=== PATIENT | female | born 1970 | race Caucasian/White ===

== ENCOUNTER 2018-10-14 23:43 | Emergency (ER) | payer OTHER, MEDICAID ==
[2018-10-15] MEDS ORDERED: Ketorolac Tromethamine 60 MG/2 ML VIAL ONE (00:34)
== END 2018-10-15 00:39 | disposition home or self-care (01) ==
LOC: ERS 23:43
DX: M54.6 Pain in thoracic spine (principal); F41.9 Anxiety disorder, unspecified; F31.9 Bipolar disorder, unspecified; F17.210 Nicotine dependence, cigarettes, uncomplicated
CPT/HCPCS: 96372; J1885

== ENCOUNTER 2018-10-30 12:49 | Emergency (ER) | payer OTHER, MEDICAID ==
[2018-10-30] MEDS ORDERED: Ketorolac Tromethamine 30 MG/ML VIAL ONE (15:15)
[2018-10-30] MEDS ORDERED: Cyclobenzaprine 10 MG TAB ONE (15:15)
== END 2018-10-30 15:28 | disposition home or self-care (01) ==
LOC: ERS 12:49
DX: M54.5 Low back pain (principal); F41.9 Anxiety disorder, unspecified; F31.9 Bipolar disorder, unspecified; F17.210 Nicotine dependence, cigarettes, uncomplicated; W19.XXXA Unspecified fall, initial encounter
CPT/HCPCS: 96372; J1885

== ENCOUNTER 2018-12-04 13:34 | Outpatient (CLI) | payer OTHER, MEDICAID ==
--- NOTE | 2018-12-28 09:04 | MMO ---
Bilateral MAMMO Bilat Screen [facility]. CLINICAL HISTORY: Patient is 48 years old and is seen for screening. The patient has no family history of breast cancer. The patient has no personal history of cancer. VIEWS: The views performed were: bilateral craniocaudal with tomosynthesis and bilateral mediolateral oblique with tomosynthesis. MAMMOGRAM FINDINGS: There are scattered fibroglandular densities. Finding 1: There are masses with circumscribed margins seen in both breasts. Finding 2: There are amorphous or indistinct calcifications with grouped or clustered distribution seen in the anterior sub-areolar region of the left breast. IMPRESSION: FINDING 1: MASSES IN BOTH BREASTS ARE BENIGN. FINDING 2: CALCIFICATIONS IN THE LEFT BREAST REQUIRE ADDITIONAL EVALUATION. ADDITIONAL PROJECTIONS (LEFT CRANIOCAUDAL MAGNIFICATION; LEFT MEDIOLATERAL OBLIQUE MAGNIFICATION; AND LEFT MEDIOLATERAL MAGNIFICATION) ARE RECOMMENDED. THE RESULTS OF THIS EXAM WERE SENT TO THE PATIENT. ACR BI-RADS Category 0 - Incomplete: Need additional imaging evaluation. [facility] will notify the patient of the need for additional imaging services. MAMMOGRAPHY NOTE: 1. A negative mammogram report should not delay a biopsy if a dominant of clinically suspicious mass is present. 2. Approximately 10% to 15% of breast cancers are not detected by mammography. 3. Adenosis and dense breasts may obscure an underlying neoplasm.
== END 2018-12-04 13:35 | disposition home or self-care (01) ==
LOC: BICMAMMO 13:34
PROVIDERS: ATTEND Student in an Organized Health Care Education/Training Program
DX: Z12.31 Encounter for screening mammogram for malignant neoplasm of breast (principal); N63.10 Unspecified lump in the right breast, unspecified quadrant; N63.20 Unspecified lump in the left breast, unspecified quadrant; R92.1 Mammographic calcification found on diagnostic imaging of breast
CPT/HCPCS: 77063; 77067

== ENCOUNTER 2019-01-01 13:04 | Outpatient (CLI) | payer OTHER, MEDICAID ==
--- NOTE | 2019-01-01 14:05 | MMO ---
Left Breast MAMMO Unilat Diag [facility]DI LT+[facility]BORAH. CLINICAL HISTORY: Patient is 48 years old and is seen for diagnostic exam. The patient has no family history of breast cancer. The patient has no personal history of cancer. VIEWS: The views performed were: left craniocaudal magnification; left mediolateral magnification; and left mediolateral with tomosynthesis. FILMS COMPARED: The present examination has been compared to a prior imaging study performed at [facility] on 12/04/2018. MAMMOGRAM FINDINGS: There are calcifications with grouped or clustered distribution seen in the sub-areolar region of the left breast. IMPRESSION: CALCIFICATIONS IN THE LEFT BREAST ARE SUSPICIOUS. A STEREOTACTIC BREAST BIOPSY IS RECOMMENDED. FINDINGS DISCUSSED WITH DR. HILTON ON 01/01/19 AT 13:58 HOURS. THE RESULTS OF THIS EXAM WERE SENT TO THE PATIENT. ACR BI-RADS Category 4 - Suspicious abnormality - biopsy should be considered MAMMOGRAPHY NOTE: 1. A negative mammogram report should not delay a biopsy if a dominant of clinically suspicious mass is present. 2. Approximately 10% to 15% of breast cancers are not detected by mammography. 3. Adenosis and dense breasts may obscure an underlying neoplasm.
== END 2019-01-01 13:05 | disposition home or self-care (01) ==
LOC: BICMAMMO 13:04
PROVIDERS: ATTEND Student in an Organized Health Care Education/Training Program
DX: R92.1 Mammographic calcification found on diagnostic imaging of breast (principal)
CPT/HCPCS: G0279

== ENCOUNTER 2019-01-04 08:27 | Emergency (ER) | payer MEDICARE, MEDICAID ==
--- NOTE | 2019-01-04 09:06 | RAD ---
XR Hand Rt 3 View STANDARD HISTORY: Fall with right hand injury. COMPARISON: None. FINDINGS: There is an old fifth metacarpal fracture present. There are arthritic changes of the radio carpal joint space. There is deformity to the distal radius also compatible with old injury. No acute fractures are seen. IMPRESSION: No acute injury
[2019-01-04] MEDS ORDERED: HYDROcodone/Acetaminophen 5/325 mg Tablet ONE (09:23)
== END 2019-01-04 09:27 | disposition home or self-care (01) ==
LOC: ERS 08:27
DX: S60.511A Abrasion of right hand, initial encounter (principal); F41.9 Anxiety disorder, unspecified; F31.9 Bipolar disorder, unspecified; F17.210 Nicotine dependence, cigarettes, uncomplicated; W19.XXXA Unspecified fall, initial encounter

== ENCOUNTER → 2019-01-04 | Day surgery (SDC) | payer MEDICARE, MEDICAID ==
--- NOTE | 2019-01-04 08:36 | MMO ---
Stereotactic left breast biopsy Biopsy marking clip placement of left breast INDICATION: Left breast calcifications PROCEDURE: Informed consent was obtained and the patient was escorted to the procedural suite, placed in a prone position. Left breast was placed into compression. Calcifications of interest were localized utilizing stereota ctic imaging. Standard sterile prepping and draping and topical anesthesia with buffered 1% lidocaine was achieved, followed by a small skin incision. A 10-gauge vacuum-assisted stereotactic needle was then advanced to the leading edge of the calcifica tions, confirmed with mammographic imaging. Needle was then deployed. 6 core specimens were then acquired from the site of interest. The specimens were radiographed which did reveal calcifications of interest. Needle was removed. A biopsy marking clip was then advanced to the site of biopsy and a marking clip was deployed. There were no procedural complications. Patient tolerated the procedure well. Patient was transferred to mammography to undergo postprocedural clip placement views. IMPRESSION: Technically successful stereotactic biopsy of left breast, yielding calcifications of int erest. Pathology results are pending. The patient will be notified of the results when they are received.
--- NOTE | 2019-01-04 15:18 | MMO ---
SURGICAL SPECIMEN RADIOGRAPH: Date: 01/04/19 INDICATION: Status post stereotactic biopsy for left breast calcifications. FINDINGS: Radiographed specimens do reveal calcifications of interest. IMPRESSION: Calcifications of interest are present within the radiographed specimens. POS: MEKA
--- NOTE | 2019-01-04 15:22 | MMO ---
POSTPROCEDURAL DIAGNOSTIC LEFT MAMMOGRAM: INDICATION: Status post stereotactic biopsy of left breast and clip placement for calcifications of the anterior, central left breast. FINDINGS: Postprocedural mammographic views reveal interval reduction in number of calcifications of interest w ith deployment of clip. IMPRESSION: Status post stereotactic biopsy and clip deployment with interval reduced number of calcifications of interest at the anterior center of the left breast. POS: LONNIE
== END ==
LOC: MAMMO 06:43
PROVIDERS: ATTEND Student in an Organized Health Care Education/Training Program
DX: N60.12 Diffuse cystic mastopathy of left breast (principal); R92.8 Other abnormal and inconclusive findings on diagnostic imaging of breast
CPT/HCPCS: 19081; 76098; 88305

== ENCOUNTER 2019-01-22 17:34 | Emergency (ER) | payer MEDICARE, MEDICAID ==
[~2019-01-22 17:34] MED LIST: ISOVUE-370 76%-LOCM 1 ML ONE
[2019-01-22 18:06] LABS: #Basophils 0.1 thou/uL (0.0-0.2); #Eosinphils 0.1 thou/uL (0.0-0.7); #Monocytes 0.7 thou/uL (0.11-0.59); #Neutrophils 6.8 thou/uL (1.40-6.50); %Basophils 0.8 % (0.0-1.0); %Eosinophils 0.7 % (0.0-10.0); %Lymphocytes 21.1 % (21.0-51.0); %Monocytes 6.8 % (0.0-10.0); %Neutrophils 70.6 % (42.0-75.0); Hemoglobin 12.6 g/dL (12.0-16.0); Mean Corpuscular HGB CONC 33.5 g/dL (32.0-36.0); Mean Corpuscular Hemoglobin 34.2 pg (27.0-31.0); Mean Platelet Volume 7.1 fL (7.4-10.4); Platelet Count 278 thou/uL (130-400); RBC Distribution Width 14.6 % (11.5-14.5); Red Blood Cell (RBC) Count 3.68 mill/uL (4.20-5.40); White Blood Cell (WBC) Count 9.6 thou/uL (4.8-10.8)
[2019-01-22 18:31] LABS: ALT (SGPT) 43 U/L (8-55); AST (SGOT) 55 U/L (5-34); Albumin 3.8 g/dL (3.5-5.0); Alkaline Phosphatase 104 U/L (40-150); Anion Gap 15 mmol/L (10-20); BUN (Urea Nitrogen) 7 mg/dL (7.0-18.7); Bilirubin, Total 0.6 mg/dL (0.2-1.2); Calc. Creatinine Clearance 0 mL/min (70-130); Calcium 8.9 mg/dL (7.8-10.44); Carbon Dioxide 24 mmol/L (22-29); Chloride 103 mmol/L (98-107); Estimated GFR-MDRD 77; Globulin 2.8 g/dL (2.4-3.5); Glucose 125 mg/dL (70-105); Lipase 127 U/L (8-78); Potassium 4.2 mmol/L (3.5-5.1); Protein, Total 6.6 g/dL (6.0-8.3); Sodium 138 mmol/L (136-145)
[2019-01-22 21:17] LABS: Bilirubin Negative (Negative); Blood, Urine Negative (Negative); Clarity CLEAR (Clear); Glucose, Urine (Dipstick) Negative (Negative); Leukocyte Negative (Negative); Nitrite Negative (Negative); Protein, Urine (Dipstick) Negative (Neg-Trace); Urobilinogen 0.2 mg/dL (0.2-1.0)
--- NOTE | 2019-01-22 21:52 | CT ---
CT ABDOMEN AND PELVIS WITH IV CONTRAST: History: Abdominal pain, hemoptysis. FINDINGS: Lung bases are clear. Within the posterior dome of the right liver lobe, a very ill-defined subtle lo w density mass is 1.0 cm greatest diameter. No other liver masses are reliably demonstrated. Spleen, kidneys, adrenal glands, and pancreas are unremarkable. No enlarged lymph nodes or free fluid. No abd ominal varices are evident. Urinary bladder is incompletely distended. Ligation clips are present at each adnexa. Right hip prosthesis partially visualized. IMPRESSION: 1. Subtle ill-defined low density mass within the posterior dome of the right liver lobe. Please cons ider short term follow up with MRI of the liver or dedicated CT liver exam with and without IV contra st. Also consider gastroenterologic evaluation on an outpatient basis. 2. No cause for hematemesis or acute abdominal pain is reliably demonstrated. POS: BST
== END 2019-01-22 23:26 | disposition home or self-care (01) ==
LOC: ERS 17:34
DX: R10.9 Unspecified abdominal pain (principal); F41.9 Anxiety disorder, unspecified; F31.9 Bipolar disorder, unspecified; F17.210 Nicotine dependence, cigarettes, uncomplicated; Z79.899 Other long term (current) drug therapy
CPT/HCPCS: 36415; 74177; 80053; 81003; 83690; 85025; 86850; 86900; 86901; Q9966

== ENCOUNTER 2019-01-23 09:49 | Inpatient (IN) | payer MEDICARE, MEDICAID ==
[2019-01-23] MEDS ORDERED: Ondansetron PF 4 MG/2 ML Vial ONE (10:12)
[2019-01-23] MEDS ORDERED: Morphine 4 MG/ML VIAL ONE ×4 (10:12→17:09)
[2019-01-23 10:19] LABS: Hemoglobin 12.6 g/dL (12.0-16.0); Mean Corpuscular HGB CONC 32.9 g/dL (32.0-36.0); Mean Corpuscular Hemoglobin 33.8 pg (27.0-31.0); Mean Platelet Volume 7.2 fL (7.4-10.4); Platelet Count 283 thou/uL (130-400); RBC Distribution Width 14.9 % (11.5-14.5); Red Blood Cell (RBC) Count 3.72 mill/uL (4.20-5.40); White Blood Cell (WBC) Count 7.6 thou/uL (4.8-10.8)
[2019-01-23 10:41] LABS: ALT (SGPT) 39 U/L (8-55); AST (SGOT) 48 U/L (5-34); Albumin 3.8 g/dL (3.5-5.0); Alkaline Phosphatase 103 U/L (40-150); Anion Gap 16 mmol/L (10-20); BUN (Urea Nitrogen) 5 mg/dL (7.0-18.7); Calc. Creatinine Clearance 0 mL/min (70-130); Calcium 9.2 mg/dL (7.8-10.44); Carbon Dioxide 23 mmol/L (22-29); Chloride 103 mmol/L (98-107); Estimated GFR-MDRD 83; Globulin 2.8 g/dL (2.4-3.5); Glucose 114 mg/dL (70-105); Lipase 320 U/L (8-78); Potassium 3.6 mmol/L (3.5-5.1); Protein, Total 6.6 g/dL (6.0-8.3); Sodium 138 mmol/L (136-145)
[2019-01-23 10:44] LABS: Band 3 % (5-11); Eosinophils 2 % (0-10); Lymphocytes 47 % (21-51); MDiff Complete? YES; Macrocytosis SLIGHT = 6-15 cells (100X) (0-5/hpf); Monocytes 5 % (0-10); Neutrophil 40 % (42-75); Platelet Morphology Comment Appears Adequate; Polychromasia SLIGHT = 2-3 cells (100X) (0-2/hpf); Reactive Lymphocytes 3 % (0-10)
--- NOTE | 2019-01-23 11:46 | ULT ---
Sonogram right upper quadrant HISTORY: Abdominal pain. FINDINGS: Gallbladder has a normal appearance without evidence of stones. Common duct is prominent at 1 cm. It was not significantly distended on CT exam from 01/22/2019. Small hyperechoic lesion within the posterior segment right liver lobe has the appearance of a small hemangioma. It is in the area of concern on recent CT exam. No free fluid within the abdomen. IMPRESSION: Common duct distention (up to 1.1 cm) on today's exam, although it was not significantly dilated on the recent CT. If symptoms are referable to acute central biliary obstruction, radionucleotide hepatobiliary scan could be used to evaluate for biliary patency. No other significant abnormalities are demonstrated. The small low-density lesion on recent CT exam within the posterior dome of the right liver lobe like ly represents the hemangioma on today's sonogram.
--- NOTE | 2019-01-23 14:11 | PDOC.FPRHP ---
- History of Present Illness Chief Complaint: Abdominal pain History of Present Illness: 48 yo F with PMH bipolar, PTSD presents for abdominal pain. Reports 1 month intermittent nausea. Says it has improved with zofran. Has vomited intermittently as well. No hematemesis. Last PO intake last night when she drank a gatorade. Decreased appetite today. Reports abdominal pain, worse in epigastric area. Has had 4-5 episodes of pancreatitis in past and says this is the same. Last episode a few years ago. Denies fever/chills. Also notes bright red blood per rectum for a few days patient attributes to hemorrhoids. Has strained out diarrhea the past two days with blood. No bleeding when not having BM. No dark stool. Last alcohol drink yesterday. Has been years since gone without alcohol. PCP: [facility] Course: morphine 16mg, 2L, zofran - History PMHx: Bipolar, PTSD PSHx: R hip, L & R mandible, lumbar injections FHx: patient does not know Social: Currently drinking 6 pack per day, trying to cut back. Has withdrawn in past. Tobacco use 4 cigs/day since 15 years old. Marijuana use. Lives with spouse, Kale. - Review of Systems General: reports: weight/appetite/sleep changes. denies: fever/chills Eyes: denies: vision changes ENT: denies: nasal congestion Respiratory: denies: cough, congestion, shortness of breath Cardiovascular: denies: chest pain, palpitation Gastrointestinal: reports: nausea, vomiting, diarrhea, abdominal pain, GI bleeding Genitourinary: denies: dysuria Skin: denies: rashes Musculoskeletal: denies: pain, swelling Neurological: denies: syncope, weakness Psychological: reports: anxiety, depression - Vital signs BP: 104/60 HR: 102 RR: 18 Tmax: 97.9 Pox: 97% on RA Wt: 64 kg - Physical Exam Constitutional: awake, alert and oriented HEENT: normocephalic and atraumatic, PERRLA, grossly normal vision, grossly normal hearing, oropharynx clear, other (mucus membranes dry) Heart: RRR, normal S1/S2, no murmurs/rubs/gallops, no edema Lungs: CTAB, no respiratory distress, no wheezing Abdomen: soft, bowel sounds present, other (epigastric very TTP. No TTP in lower abdominal quadrants) Musculoskeletal: normal structure, normal tone Neurological: no focal deficit Skin: no rash/lesions Heme/Lymphatic: no unusual bruising or bleeding FMR H&P: Results - Labs Result Diagrams: 01/24/19 05:49 01/24/19 05:49 Lab results: WBC 7.6 thou/uL (4.8-10.8) 01/23/19 09:58 Hgb 12.6 g/dL (12.0-16.0) 01/23/19 09:58 Hct 38.3 % (36.0-47.0) 01/23/19 09:58 MCV 103.0 fL (78.0-98.0) H 01/23/19 09:58 Plt Count 283 thou/uL (130-400) 01/23/19 09:58 Band Neuts % (Manual) 3 % (5-11) L 01/23/19 09:58 Sodium 138 mmol/L (136-145) 01/23/19 09:58 Potassium 3.6 mmol/L (3.5-5.1) 01/23/19 09:58 Chloride 103 mmol/L (98-107) 01/23/19 09:58 Carbon Dioxide 23 mmol/L (22-29) 01/23/19 09:58 BUN 5 mg/dL (7.0-18.7) L 01/23/19 09:58 Creatinine 0.75 mg/dL (0.6-1.1) 01/23/19 09:58 Glucose 114 mg/dL (70-105) H 01/23/19 09:58 Lactic Acid 2.3 mmol/L (0.5-2.2) H 01/23/19 10:13 Calcium 9.2 mg/dL (7.8-10.44) 01/23/19 09:58 Total Bilirubin 1.0 mg/dL (0.2-1.2) 01/23/19 09:58 AST 48 U/L (5-34) H 01/23/19 09:58 ALT 39 U/L (8-55) 01/23/19 09:58 Alkaline Phosphatase 103 U/L (40-150) 01/23/19 09:58 Serum Total Protein 6.6 g/dL (6.0-8.3) 05/07/19 09:58 Albumin 3.8 g/dL (3.5-5.0) 01/23/19 09:58 Lipase 320 U/L (8-78) H 01/23/19 09:58 FMR H&P: A/P - Problem List (1) Pancreatitis Current Visit: Yes Status: Acute Code(s): K85.90 - ACUTE PANCREATITIS WITHOUT NECROSIS OR INFECTION, UNSP (2) Hematochezia Current Visit: Yes Status: Acute Code(s): K92.1 - MELENA (3) Elevated AST (SGOT) Current Visit: Yes Status: Acute Code(s): R74.0 - NONSPEC ELEV OF LEVELS OF TRANSAMNS & LACTIC ACID DEHYDRGNSE (4) Alcohol abuse Current Visit: Yes Status: Acute Code(s): F10.10 - ALCOHOL ABUSE, UNCOMPLICATED (5) Marijuana abuse Current Visit: Yes Status: Acute Code(s): F12.10 - CANNABIS ABUSE, UNCOMPLICATED (6) Tobacco abuse Current Visit: Yes Status: Acute Code(s): Z72.0 - TOBACCO USE (7) Bipolar 2 disorder Current Visit: Yes Status: Acute Code(s): F31.81 - BIPOLAR II DISORDER - Plan 48 yo F with PMH bipolar and alcohol abuse presents to ED for pain and hemorrhoids and is admitted for pancreatitis Acute pancreatitis - Lipase 320, classic epigastric pain - CT prior to admission showed low density mass in posterior dome of right liver lobe, otherwise negative - US showed common duct distention 1.1 cm, mass in liver is hemangioma - most likely 2/2 alcohol abuse. Of home medications, tegretol is only possible contributor, though it is Class III. Will check triglycerides - WBC wnl. Lactic 2.3, will repeat in am to ensure downtrend - LDH pending. Otherwise [place]'s score 0. - Continue IVF. NPO for now and will advance diet as tolerated - morphine for pain control Alcohol abuse - ASE protocol - will replace thiamine/folate Hematochezia - most likely 2/2 hemorrhoids and pt straining - Hgb 12.6, will continue to monitor. Otherwise outpatient follow up. Mildly elevated AST - AST 48 on admission - will continue to monitor BipolarII - continue home prozac, diazepam, tegretol Tobacco abuse - nicotine patch and encourage cessation Marijuana abuse Ppx: SCDs PCP: Gilbert Myers Diet: NPO, ADAT Dispo: admit to medical floor inpatient Case discussed with Dr. Resendez FMR H&P: Upper Level - Pertinent history Pt is a 48 yo F w/ PMH of bipolar disorder and chronic alcohol abuse with previous episodes of pancreatitis who presents with 1 day history of NV and abdominal pain c/w previous episodes of pancreatitis. Pt reports last po intake was last PM and last alcohol intake was yesterday as well. Currently she reports epigastric pain after 16mg morphine. Otherwise, she denies CP, SOB. DFoes report a history of blood with BM when she strains. She has a known h/o hemorrhoids. Denies Dizziness, lightheadedness, hematemesis, coffee ground emesis. ROS: Gen- No fever chills CV- No cp, palpitation Resp- no sob/cough Abd- +NV abdominal pain Neuo- denies focal deficit, denies headache - Pertinent findings PE: Gen: Mildly distressed HEENT: NCAT, PERRLA, EOMI CV: RRR No MRG Resp: CTABL No W/R/R Abd: Point TTP epigastric region, guarding, no rebound, no rigidity Neuro: No focal deficit - Plan Date/Time: 01/23/19 1411 I, Jose Miguel Sarmiento DO, have evaluated this patient and agree with findings/ plan as outlined by international recruiter resident. Pertinent changes/additions are listed here. 1) Acute pancreatitis: -likely related to chronic alcohol abuse; however, will consider stoneRUQ showed some dilation of CBD. Will trend LFTs and if increase or no clinical improvement consider MRCP - admit medical - NPO ADAT - Morphine PRN for pain 2) Alcohol abuse: - ase protocol with meds - banana bag - IVF LR @ 150mls/hr 3) Hematochezia: - Hgb stable - if acute drop or recurrence of symptoms consider further workup, but likely ok for OP workup 4) Macrocytosis: - Banana bag - consider B12 and folic acid studies/supplementation 5) Bipolar: resume home medications as long as not contraindicated in setting of pancreatitis. Dispo: Stable, pain control with morphine/IVF for pancreatitis and ase protocol for alcohol abuse. Consider MRCP if s/s not improving as expected. Addendum - Attending - Attending Attestation Date/Time: 01/24/19 9408 I personally evaluated the patient and discussed the management with Dr. Hunt at time of admission yesterday. I agree with the History, Examination, Assessment and Plan documented above with any addition or exceptions noted below.
[2019-01-23 14:24] LABS: Lactic Acid 0.7 mmol/L (0.5-2.2)
[2019-01-23] MEDS ORDERED: Ondansetron ODT 4 MG TAB PO PRN (16:53)
[2019-01-23] MEDS ORDERED: Acetaminophen 325 MG TAB PO PRN (16:53)
[2019-01-23] MEDS ORDERED: Diazepam 5 MG TAB PO PRN (18:07)
[2019-01-23] MEDS ORDERED: Thiamine HCl 200 MG/2 ML VIAL IM SCH (18:15)
[2019-01-23] MEDS ORDERED: Diazepam 5 MG TAB PO SCH (18:15)
[2019-01-23] MEDS: Lactated Ringer's 1,000 ML IV SCH ×2 (18:37→23:32)
[2019-01-23] MEDS ORDERED: Multivitamins, Adult 10 ML, Folic Acid 1 MG, Thiamine HCl 100 MG in Dextrose 5 %-0.45 %... IV SCH ×2 (20:00→21:00)
[2019-01-23] MEDS ORDERED: Nicotine 14 MG PATCH TD SCH (21:00)
[2019-01-23] MEDS: Morphine 4 MG/ML VIAL SLOW IVP PRN (21:29)
[2019-01-23] MEDS: carBAMazepine 200 MG TAB PO SCH (21:32)
[2019-01-23] MEDS: Ondansetron PF 4 MG/2 ML Vial IVP PRN (23:58)
[2019-01-24] MEDS: Morphine 4 MG/ML VIAL SLOW IVP PRN ×5 (02:37→20:23)
[2019-01-24] MEDS ORDERED: Diazepam 5 MG TAB PO PRN (04:00)
[2019-01-24] MEDS: Lactated Ringer's 1,000 ML IV SCH ×4 (05:58→20:24)
[2019-01-24 06:22] LABS: #Eosinphils 0.2 thou/uL (0.0-0.7); #Lymphocytes 1.5 thou/uL (1.20-3.40); #Monocytes 0.4 thou/uL (0.11-0.59); #Neutrophils 2.6 thou/uL (1.40-6.50); %Basophils 0.4 % (0.0-1.0); %Eosinophils 3.4 % (0.0-10.0); %Lymphocytes 31.7 % (21.0-51.0); %Monocytes 8.9 % (0.0-10.0); %Neutrophils 55.6 % (42.0-75.0); Hemoglobin 9.8 g/dL (12.0-16.0); Mean Corpuscular HGB CONC 32.9 g/dL (32.0-36.0); Mean Corpuscular Hemoglobin 34.7 pg (27.0-31.0); Mean Platelet Volume 7.1 fL (7.4-10.4); Platelet Count 199 thou/uL (130-400); RBC Distribution Width 14.6 % (11.5-14.5); Red Blood Cell (RBC) Count 2.81 mill/uL (4.20-5.40); White Blood Cell (WBC) Count 4.7 thou/uL (4.8-10.8)
--- NOTE | 2019-01-24 06:37 | PDOC.FM ---
- Subjective Subjective: Ms. Anand reports continued abdominal pain, that is a little worse this morning. Pain medications have been helping. Zofran helps as well. Drank a little water. - Objective Vital Signs & Weight: Vital Signs (12 hours) Temp Pulse Resp BP BP Pulse Ox 01/24/19 05:55 97/63 01/24/19 04:00 97.6 F 87 16 97/63 94 L 01/24/19 00:00 97.4 F L 82 16 97/63 101/61 96 01/23/19 20:00 101/67 98 01/23/19 19:06 97.6 F 88 16 101/67 98 01/23/19 18:58 98 Result Diagrams: 01/24/19 05:49 01/24/19 05:49 Phys Exam - Physical Examination HEENT: moist MMs Respiratory: no wheezing, clear to auscultation bilateral Cardiovascular: RRR, no significant murmur Gastrointestinal: soft, positive bowel sounds (TTP, particulary over epigastric area) Musculoskeletal: no edema, pulses present Neurological: non-focal Psychiatric: normal affect Dx/Plan (1) Pancreatitis Code(s): K85.90 - ACUTE PANCREATITIS WITHOUT NECROSIS OR INFECTION, UNSP Status: Acute (2) Hematochezia Code(s): K92.1 - MELENA Status: Acute (3) Elevated AST (SGOT) Code(s): R74.0 - NONSPEC ELEV OF LEVELS OF TRANSAMNS & LACTIC ACID DEHYDRGNSE Status: Acute (4) Alcohol abuse Code(s): F10.10 - ALCOHOL ABUSE, UNCOMPLICATED Status: Acute (5) Marijuana abuse Code(s): F12.10 - CANNABIS ABUSE, UNCOMPLICATED Status: Acute (6) Tobacco abuse Code(s): Z72.0 - TOBACCO USE Status: Acute (7) Bipolar 2 disorder Code(s): F31.81 - BIPOLAR II DISORDER Status: Acute - Plan Plan: 48 yo F with PMH bipolar and alcohol abuse presents to ED for pain and hemorrhoids and is admitted for pancreatitis Acute pancreatitis - Lipase 320, classic epigastric pain - CT prior to admission showed low density mass in posterior dome of right liver lobe, otherwise negative - US showed common duct distention 1.1 cm, mass in liver is hemangioma - most likely 2/2 alcohol abuse. Of home medications, tegretol is only possible contributor, though it is Class III. Will check triglycerides - WBC wnl. Lactic 2.3->2.2 - [place]'s score 0. - Continue IVF. NPO for now and will advance diet as tolerated - morphine for pain control Hypokalemia - 3.2 this am, will replace and recheck in am Alcohol abuse - ASE protocol - will replace thiamine/folate Hematochezia - most likely 2/2 hemorrhoids and pt straining - Hgb 12.6->9.8, will continue to monitor Mildly elevated AST - AST 48 on admission - will continue to monitor BipolarII - continue home prozac, diazepam, tegretol Tobacco abuse - nicotine patch and encourage cessation Marijuana abuse Ppx: SCDs PCP: Gilbert Myers Diet: NPO, ADAT Dispo: continue current management Case discussed with Dr. Resendez Addendum - Attending - Attending Attestation Date/Time: 01/24/19 1565 I personally evaluated the patient and discussed the management with Dr. Hunt. I agree with the History, Examination, Assessment and Plan documented above with any addition or exceptions noted below. Patient here for pancreatitis. Continue IV fluids, pain control as needed. BISAP score shows low mortality. Her U/S did show potential new CBD dilation but labs reassuring. If she does not make meaningful progress today, will consider further imaging and GI consult tomorrow to evaluate for biliary tree issues. Replete K and check Tegretol level.
[2019-01-24 06:38] LABS: Lactic Acid 2.2 mmol/L (0.5-2.2)
[2019-01-24 06:50] LABS: ALT (SGPT) 24 U/L (8-55); AST (SGOT) 37 U/L (5-34); Albumin 2.8 g/dL (3.5-5.0); Alkaline Phosphatase 81 U/L (40-150); Anion Gap 7 mmol/L (10-20); BUN (Urea Nitrogen) Less than 4 mg/dL (7.0-18.7); Bilirubin, Total 0.7 mg/dL (0.2-1.2); Calc. Creatinine Clearance 0 mL/min (70-130); Calcium 7.8 mg/dL (7.8-10.44); Carbon Dioxide 24 mmol/L (22-29); Chloride 111 mmol/L (98-107); Estimated GFR-MDRD Greater than 90; Glucose 119 mg/dL (70-105); Potassium 3.2 mmol/L (3.5-5.1); Protein, Total 4.8 g/dL (6.0-8.3); Sodium 139 mmol/L (136-145)
[2019-01-24] MEDS: Magnesium Oxide 400 MG TAB PO SCH (08:54)
[2019-01-24] MEDS: FLUoxetine HCl 20 MG CAP PO SCH (08:54)
[2019-01-24] MEDS: carBAMazepine 200 MG TAB PO SCH ×2 (08:54→20:23)
[2019-01-24] MEDS: Multivitamin W/ Minerals 1 TAB PO SCH (08:54)
[2019-01-24] MEDS: Thiamine 100 MG TAB PO SCH (08:54)
[2019-01-24] MEDS: Folic Acid 1 MG TAB PO SCH (08:54)
[2019-01-24] MEDS ORDERED: Potassium Chloride 40 MEQ in Premix Bag 1 BAG IVPB SCH (09:00)
[2019-01-24] MEDS: Potassium Chloride 20 MEQ in Premix Bag 1 BAG IVPB SCH ×2 (10:40→14:57)
[2019-01-24 11:38] VITALS: BMI 24.2
[2019-01-24] MEDS: Nicotine 14 MG PATCH TD SCH (12:40)
[2019-01-24] MEDS: Diazepam 5 MG TAB PO PRN (12:41)
[2019-01-24] MEDS: Ondansetron PF 4 MG/2 ML Vial IVP PRN (20:34)
[2019-01-25] MEDS: Diazepam 5 MG TAB PO PRN ×2 (00:10→22:46)
[2019-01-25] MEDS: Morphine 4 MG/ML VIAL SLOW IVP PRN ×7 (00:21→20:28)
[2019-01-25] MEDS: Lactated Ringer's 1,000 ML IV SCH ×3 (03:12→18:36)
[2019-01-25] MEDS: Ondansetron PF 4 MG/2 ML Vial IVP PRN ×4 (03:16→22:27)
[2019-01-25 05:54] LABS: #Eosinphils 0.1 thou/uL (0.0-0.7); #Lymphocytes 1.8 thou/uL (1.20-3.40); #Monocytes 0.5 thou/uL (0.11-0.59); %Basophils 0.3 % (0.0-1.0); %Lymphocytes 33.4 % (21.0-51.0); %Monocytes 9.5 % (0.0-10.0); %Neutrophils 54.9 % (42.0-75.0); Hemoglobin 9.7 g/dL (12.0-16.0); Mean Corpuscular HGB CONC 33.2 g/dL (32.0-36.0); Mean Corpuscular Hemoglobin 34.7 pg (27.0-31.0); Mean Platelet Volume 7.1 fL (7.4-10.4); Platelet Count 189 thou/uL (130-400); RBC Distribution Width 14.5 % (11.5-14.5); Red Blood Cell (RBC) Count 2.78 mill/uL (4.20-5.40); White Blood Cell (WBC) Count 5.4 thou/uL (4.8-10.8)
[2019-01-25 06:23] LABS: ALT (SGPT) 35 U/L (8-55); AST (SGOT) 79 U/L (5-34); Albumin 2.8 g/dL (3.5-5.0); Alkaline Phosphatase 173 U/L (40-150); Anion Gap 10 mmol/L (10-20); BUN (Urea Nitrogen) Less than 4 mg/dL (7.0-18.7); Bilirubin, Total 1.4 mg/dL (0.2-1.2); Calc. Creatinine Clearance 111 mL/min (70-130); Calcium 8.5 mg/dL (7.8-10.44); Carbon Dioxide 30 mmol/L (22-29); Cardiac Risk 2.8 (Less than 4.5); Chloride 105 mmol/L (98-107); Cholesterol 190 mg/dl (< 200 Desired); Estimated GFR-MDRD Greater than 90; Globulin 2.2 g/dL (2.4-3.5); Glucose 71 mg/dL (70-105); HDL Cholesterol 69 mg/dL (>60 Neg Risk); LDL Cholesterol, Calculated 111 mg/dL; Potassium 4.6 mmol/L (3.5-5.1); Sodium 140 mmol/L (136-145); Triglycerides 49 mg/dL (Less than 150)
--- NOTE | 2019-01-25 06:45 | PDOC.FM ---
- Subjective Subjective: Patient not feeling any better this am. Has continued abdominal pain, worse in epigastric area. Drank water yesterday but nothing yet today. - Objective MAR Reviewed: Yes Vital Signs & Weight: Vital Signs (12 hours) Temp Pulse Resp BP BP Pulse Ox 01/25/19 05:00 116/77 01/25/19 04:00 98.5 F 81 16 116/77 95 01/25/19 01:00 125/81 01/25/19 00:00 98.7 F 88 16 125/81 98 01/24/19 21:00 113/76 01/24/19 20:00 98.5 F 94 16 113/76 96 Weight Admit Weight 63.957 kg Weight 63.957 kg I&O: 01/23/19 01/24/19 01/25/19 06:59 06:59 06:59 Intake Total 3183 Balance 3183 Result Diagrams: 01/25/19 05:05 01/25/19 05:05 Phys Exam - Physical Examination Respiratory: no wheezing, clear to auscultation bilateral Cardiovascular: RRR, no significant murmur Gastrointestinal: soft, positive bowel sounds (TTP, worse in epigatric) Musculoskeletal: no edema Neurological: non-focal Psychiatric: normal affect Dx/Plan (1) Pancreatitis Code(s): K85.90 - ACUTE PANCREATITIS WITHOUT NECROSIS OR INFECTION, UNSP Status: Acute (2) Hematochezia Code(s): K92.1 - MELENA Status: Acute (3) Elevated AST (SGOT) Code(s): R74.0 - NONSPEC ELEV OF LEVELS OF TRANSAMNS & LACTIC ACID DEHYDRGNSE Status: Acute (4) Alcohol abuse Code(s): F10.10 - ALCOHOL ABUSE, UNCOMPLICATED Status: Acute (5) Marijuana abuse Code(s): F12.10 - CANNABIS ABUSE, UNCOMPLICATED Status: Acute (6) Tobacco abuse Code(s): Z72.0 - TOBACCO USE Status: Acute (7) Bipolar 2 disorder Code(s): F31.81 - BIPOLAR II DISORDER Status: Acute - Plan Plan: 48 yo F with PMH bipolar and alcohol abuse presents to ED for pain and hemorrhoids and is admitted for pancreatitis Acute pancreatitis - Lipase 320, classic epigastric pain. Lisandro's score 0. - CT prior to admission showed low density mass in posterior dome of right liver lobe, otherwise negative - US showed common duct distention 1.1 cm, mass in liver is hemangioma - most likely 2/2 alcohol abuse. Of home medications, tegretol is only possible contributor, though it is Class III. Triglycerides normal. Consider gallstone cause as well considering CBD distention, though no stone seen. - WBC wnl. Lactic 2.3->2.2 - Continue IVF. Advance diet as tolerated - morphine for pain control - considering minimal improvement and new lab abnormalites below, will consult GI today. Common bile duct distention - visualized on US at admission. No stones seen - T bili and AST elevated today Hypokalemia, resolved - improved after repletion Alcohol abuse - ASE protocol - will replace thiamine/folate Hematochezia - most likely 2/2 hemorrhoids and pt straining - Hgb 12.6->9.8, will continue to monitor Mildly elevated AST - AST 48 on admission - will continue to monitor BipolarII - continue home prozac, diazepam, tegretol - tegretol @ therapeutic level Tobacco abuse - nicotine patch and encourage cessation Marijuana abuse Ppx: SCDs PCP: Gilbert Myers Diet: NPO, ADAT Dispo: continue current management, GI consult today Addendum - Attending - Attending Attestation Date/Time: 01/25/19 3516 I personally evaluated the patient and discussed the management with Dr. Hunt. I agree with the History, Examination, Assessment and Plan documented above with any addition or exceptions noted below. Patient continues to have abdominal pain and inability to tolerate PO. Continue pain control, IVF, and bowel rest. Her enzymes did bump with the finding of dilated CBD yesterday concerning to choledocholithiasis and gallstone pancreatitis. GI has been consulted and plans for ERCP tomorrow. Will continue current mgmt at this time and await that procedure tomorrow.
[2019-01-25] MEDS: FLUoxetine HCl 20 MG CAP PO SCH (08:28)
[2019-01-25] MEDS: Magnesium Oxide 400 MG TAB PO SCH (08:28)
[2019-01-25] MEDS: Folic Acid 1 MG TAB PO SCH (08:28)
[2019-01-25] MEDS: Multivitamin W/ Minerals 1 TAB PO SCH (08:29)
[2019-01-25] MEDS: carBAMazepine 200 MG TAB PO SCH ×2 (08:29→20:29)
[2019-01-25] MEDS: Thiamine 100 MG TAB PO SCH (08:32)
[2019-01-25] MEDS: Nicotine 14 MG PATCH TD SCH (10:42)
--- NOTE | 2019-01-25 10:56 | CON ---
DATE OF CONSULTATION: 01/25/2019 REQUESTING PHYSICIAN: Dr. Hunt. REASON FOR CONSULTATION: Pancreatitis with dilated bile duct and elevated LFTs. HISTORY OF PRESENT ILLNESS: Vita Anand is a 48-year-old woman with a history of bipolar disorder and PTSD. She also reports a prior history of four or five episodes of pancreatitis in the past. Evidently, this has been characterized as secondary to alcohol each time. She does have a history of alcohol abuse, drinking about a six pack per day of alcohol. She also smokes and uses marijuana. She presented and was admitted to the hospital a couple of days ago complaining of nausea, intermittent vomiting, and worsening epigastric pain. The pain has not really subsided since admission, though she has been clinically stable receiving good supportive care with IV fluids and morphine. On the course of this admission, her LFTs have actually bumped up a little bit and this morning, total bilirubin had risen to 1.4 from 0.7 yesterday. Alkaline phosphatase also bessy from 81 to 173 and AST went up from 37 to 79. She has never undergone cholecystectomy or ERCP. Abdominal ultrasound was performed on admission and this did show a common bile duct dilation to 1.1 cm, though no evidence of cholelithiasis in the gallbladder. PAST MEDICAL HISTORY: Bipolar disorder, PTSD, recurrent episodes of pancreatitis, right hip surgery, mandibular surgery, and lumbar injections. FAMILY HISTORY: Unknown to the patient. SOCIAL HISTORY: The patient drinks six pack of beer per day. She use about four cigarettes per day. She uses marijuana. REVIEW OF SYSTEMS: Full review of systems including constitutional, head, eyes, ears, nose, throat, GI, , cardiovascular, respiratory, musculoskeletal, and neurologic systems is negative except as noted in the HPI. ALLERGIES: NO KNOWN DRUG ALLERGIES. MEDICATIONS: Tegretol, Valium, Prozac, folic acid, multivitamin, magnesium oxide, morphine IV, nicotine patch, Zofran p.r.n., and thiamine. PHYSICAL EXAMINATION: VITAL SIGNS: Temperature 97.8, pulse 91, blood pressure 128/79, and 95% oxygen saturation on room air. GENERAL: A 48-year-old woman lying in bed, in mild emotional distress, somewhat tearful. SKIN: No jaundice. No rashes were palpable. HEENT: Eyes, no scleral icterus. Extraocular movements intact. ENT; mucous membranes are moist. No oral lesions. LYMPHATIC: No submandibular or supraclavicular, lymphadenopathy. Thyroid, nontender to palpation. HEART: Regular rate and rhythm. LUNGS: Clear to auscultation bilaterally. ABDOMEN: Flat. Bowel sounds hypoactive, but present. Soft. Tender to palpation in the epigastrium. No guarding or rebound tenderness. EXTREMITIES: No peripheral edema. VESSELS: Radial pulses 2+ bilaterally. NEUROLOGIC: Cranial nerves II through XII are intact bilaterally. No focal deficits. LABORATORY STUDIES: Hemoglobin 9.7, WBC 5.4, and platelets are 189. Sodium 140, potassium 4.6, BUN less than 4, creatinine 0.63, total bilirubin 1.4, alkaline phosphatase 173, AST 79, ALT 35, albumin 2.8, and lipase 320 on admission. IMAGING STUDIES: Abdominal ultrasound from 01/23/2019 demonstrated common bile duct distention up to 1.1 cm. The gallbladder appeared normal without ultrasound evidence of stones. She has a small likely hemangioma in the posterior dome of the right liver. CT scan of the abdomen and pelvis performed the prior day on 01/22/2019 had not demonstrated any bile duct dilation. ASSESSMENT/PLAN: 1. Acute pancreatitis, recurrent. 2. Common bile duct dilation, new on ultrasound examination this admission. 3. Elevated LFTs, mild, but increasing since admission. The patient presents with an episode of recurrent pancreatitis. I agree that her alcohol abuse may be contributing, but on this presentation, given the rising LFTs as well as new findings of common bile duct dilation, need to consider the possibility of biliary sludge or choledocholithiasis. Note, no stones were seen on ultrasound imaging of the gallbladder, but the biliary dilation and rising LFTs make this a high probability for bile duct stones or sludge. We will go ahead and plan for ERCP tomorrow for assessment and clearance of the common bile duct. Anticipate the patient will probably need surgical consultation for cholecystectomy at some point as well. Otherwise, continue with current supportive care. Thank you for the consultation. Please call anytime with questions or concerns. Job ID: [id number]
[2019-01-26] MEDS: Lactated Ringer's 1,000 ML IV SCH ×2 (01:23→07:54)
[2019-01-26] MEDS: Morphine 4 MG/ML VIAL SLOW IVP PRN ×6 (01:24→21:05)
--- NOTE | 2019-01-26 06:35 | PDOC.FM ---
- Subjective Subjective: Ms. Anand has not improved much. Reports continued pain that has not improved much. Drank minimal water yesterday. - Objective Vital Signs & Weight: Vital Signs (12 hours) Temp Pulse Resp BP BP Pulse Ox 01/26/19 04:00 98.4 F 81 18 121/80 96 01/25/19 21:00 120/75 01/25/19 20:00 98.5 F 91 18 120/75 98 Weight Admit Weight 63.957 kg Weight 63.957 kg I&O: 01/24/19 01/25/19 01/26/19 06:59 06:59 06:59 Intake Total 3183 Balance 3183 Result Diagrams: 01/26/19 06:27 01/26/19 06:27 Phys Exam - Physical Examination Respiratory: no wheezing, clear to auscultation bilateral Cardiovascular: RRR, no significant murmur Gastrointestinal: soft, positive bowel sounds (TTP) Musculoskeletal: no edema Neurological: non-focal, normal sensation Psychiatric: normal affect Skin: normal turgor Dx/Plan (1) Pancreatitis Code(s): K85.90 - ACUTE PANCREATITIS WITHOUT NECROSIS OR INFECTION, UNSP Status: Acute (2) Hematochezia Code(s): K92.1 - MELENA Status: Acute (3) Elevated AST (SGOT) Code(s): R74.0 - NONSPEC ELEV OF LEVELS OF TRANSAMNS & LACTIC ACID DEHYDRGNSE Status: Acute (4) Alcohol abuse Code(s): F10.10 - ALCOHOL ABUSE, UNCOMPLICATED Status: Acute (5) Marijuana abuse Code(s): F12.10 - CANNABIS ABUSE, UNCOMPLICATED Status: Acute (6) Tobacco abuse Code(s): Z72.0 - TOBACCO USE Status: Acute (7) Bipolar 2 disorder Code(s): F31.81 - BIPOLAR II DISORDER Status: Acute - Plan Plan: 48 yo F with PMH bipolar and alcohol abuse presents to ED for pain and hemorrhoids and is admitted for pancreatitis Acute pancreatitis - Lipase 320, classic epigastric pain. Lisandro's score 0. - CT prior to admission showed low density mass in posterior dome of right liver lobe, otherwise negative - US showed common duct distention 1.1 cm, mass in liver is hemangioma, no stones - most likely 2/2 alcohol abuse vs choledocolithiases. Of home medications, tegretol is Class III. Triglycerides normal. - WBC wnl. Lactic 2.3->2.2 - Continue IVF. NPO. - morphine for pain control - Appreciate GI recs. ERCP today. Common bile duct distention - 1.1. visualized on US at admission. No stones seen - T bili and AST elevated today Hypokalemia, resolved - improved after repletion Alcohol abuse - ASE protocol - will replace thiamine/folate Hematochezia - most likely 2/2 hemorrhoids and pt straining - Hgb 12.6->9.8, will continue to monitor Mildly elevated AST - AST 48 on admission - will continue to monitor BipolarII - continue home prozac, diazepam, tegretol - tegretol @ therapeutic level Tobacco abuse - nicotine patch and encourage cessation Marijuana abuse Ppx: SCDs PCP: Gilbert Myers Diet: NPO, ADAT Dispo: continue current management, GI consult today Addendum - Attending - Attending Attestation Date/Time: 01/26/19 1887 I personally evaluated the patient and discussed the management with Dr. Hunt. I agree with the History, Examination, Assessment and Plan documented above with any addition or exceptions noted below. Patient here for gallstone pancreatitis versus choledocholithiasis. She is undergoing ERCP later today with GI. Pain controlled somewhat. NPO until procedure. Labs overall stable. Hopeful for quick resolution of symptoms after intervention. Follow up after procedure and further GI recs.
[2019-01-26 07:10] LABS: #Eosinphils 0.1 thou/uL (0.0-0.7); #Lymphocytes 1.8 thou/uL (1.20-3.40); #Monocytes 0.6 thou/uL (0.11-0.59); #Neutrophils 3.8 thou/uL (1.40-6.50); %Basophils 0.5 % (0.0-1.0); %Eosinophils 2.2 % (0.0-10.0); %Lymphocytes 27.9 % (21.0-51.0); %Monocytes 8.8 % (0.0-10.0); %Neutrophils 60.7 % (42.0-75.0); Hemoglobin 9.6 g/dL (12.0-16.0); Mean Corpuscular HGB CONC 33.9 g/dL (32.0-36.0); Mean Corpuscular Hemoglobin 35.2 pg (27.0-31.0); Mean Platelet Volume 7.6 fL (7.4-10.4); Platelet Count 173 thou/uL (130-400); RBC Distribution Width 14.5 % (11.5-14.5); Red Blood Cell (RBC) Count 2.72 mill/uL (4.20-5.40); White Blood Cell (WBC) Count 6.3 thou/uL (4.8-10.8)
[2019-01-26 07:27] LABS: ALT (SGPT) 35 U/L (8-55); AST (SGOT) 67 U/L (5-34); Albumin 2.9 g/dL (3.5-5.0); Alkaline Phosphatase 217 U/L (40-150); Anion Gap 14 mmol/L (10-20); BUN (Urea Nitrogen) Less than 4 mg/dL (7.0-18.7); Bilirubin, Total 1.5 mg/dL (0.2-1.2); Calc. Creatinine Clearance 117 mL/min (70-130); Calcium 8.3 mg/dL (7.8-10.44); Carbon Dioxide 26 mmol/L (22-29); Chloride 102 mmol/L (98-107); Estimated GFR-MDRD Greater than 90; Globulin 2.2 g/dL (2.4-3.5); Potassium 3.9 mmol/L (3.5-5.1); Protein, Total 5.1 g/dL (6.0-8.3); Sodium 138 mmol/L (136-145)
[2019-01-26 07:31] LABS: Glucose 53 mg/dL (70-105)
[2019-01-26] MEDS: Thiamine 100 MG TAB PO SCH (07:47)
[2019-01-26] MEDS: Magnesium Oxide 400 MG TAB PO SCH (07:47)
[2019-01-26] MEDS: FLUoxetine HCl 20 MG CAP PO SCH (07:47)
[2019-01-26] MEDS: Multivitamin W/ Minerals 1 TAB PO SCH (07:47)
[2019-01-26] MEDS: Folic Acid 1 MG TAB PO SCH (07:47)
[2019-01-26] MEDS: carBAMazepine 200 MG TAB PO SCH ×2 (07:47→20:02)
[2019-01-26] MEDS: Dextrose 5%-Lactated Ringers 1,000 ML IV SCH ×2 (08:33→20:02)
[2019-01-26] MEDS: Ondansetron PF 4 MG/2 ML Vial IVP PRN ×2 (09:43→20:07)
[2019-01-26] MEDS: Nicotine 14 MG PATCH TD SCH (11:52)
[2019-01-26] MEDS ORDERED: Iothalamate Meglumine 60% 50 ML VIAL FS ONE (14:13)
[2019-01-26] MEDS ORDERED: Indomethacin 50 MG SUPP ONE (14:13)
[2019-01-26] MEDS ORDERED: Promethazine HCl 25 MG/ML VIAL IM PRN (15:36)
[2019-01-26] MEDS ORDERED: Ondansetron HCl/PF 4 MG/2 ML Vial IVP PRN (15:36)
[2019-01-26] MEDS ORDERED: Morphine Sulfate 2 MG/ML SYRINGE SLOW IVP PRN (15:36)
[2019-01-26] MEDS ORDERED: Promethazine HCl 25 MG/ML VIAL SLOW IVP PRN (15:36)
--- NOTE | 2019-01-26 15:55 | RAD ---
ERCP 01/26/19 A single fluoroscopic image presented from an ERCP procedure. INDICATION: Intraoperative imaging during ERCP procedure. FINDINGS/IMPRESSION: Common duct is opacified. There is a faint filling defect in the mid common duct. This is probably ar tifactual; however, I cannot exclude a calculus or other defect at this location on this single image . POS: MEKA
[2019-01-26] MEDS ORDERED: Promethazine HCl 25 MG/ML VIAL ONE (16:32)
[2019-01-26] MEDS ORDERED: Dexamethasone 20 MG/5 ML VIAL ONE (17:40)
[2019-01-26] MEDS ORDERED: ePHEDrine 50 MG/ML VIAL ONE (17:40)
[2019-01-26] MEDS ORDERED: Succinylcholine Chloride 20 MG/ML 10 ml SYRINGE FS ONE (17:40)
[2019-01-26] MEDS ORDERED: PROPOFOL 200 MG/20 ML VIAL ONE (17:40)
[2019-01-26] MEDS ORDERED: Lidocaine 1% PF 5 ML VIAL ONE (17:40)
[2019-01-26] MEDS ORDERED: Rocuronium Bromide 10 MG/ML (10ML VIAL) ONE (17:40)
[2019-01-26] MEDS ORDERED: Ondansetron PF 4 MG/2 ML Vial ONE (17:40)
[2019-01-26] MEDS: Diazepam 5 MG TAB PO PRN (21:04)
--- NOTE | 2019-01-26 21:53 | OP ---
DATE OF PROCEDURE: 01/26/2019 FURNACE FIRER SURGEON: None. PROCEDURE PERFORMED: ERCP with biliary sphincterotomy and sludge extraction. INDICATIONS: 1. Pancreatitis, likely biliary. 2. Common bile duct dilation. 3. Elevated LFTs, also suspicious for possible choledocholithiasis. MEDICATIONS: 1. See Anesthesia record. 2. Indomethacin 100 mg per rectum. FINDINGS: After discussion of the risks, benefits, and alternatives of the procedure, informed consent was obtained and witnessed. Pre-endoscopic cardiopulmonary examination was satisfactory. Time-out was performed before sedation was achieved. Sedation was achieved with Anesthesia assistance in the endoscopy unit. The patient was placed in the prone position, endotracheally intubated on the fluoroscopy table. A Pentax adult side-viewing duodenoscope was advanced down the esophagus and beyond the stomach into the second portion of the duodenum. The ampulla was brought into view with the endoscope in the short position. The ampulla had a mildly stenotic appearance using a triple lumen dome tip sphincterotome and a 0.035 guidewire. We selectively cannulated the common bile duct. The guidewire was passed up into the left intrahepatic system. A biliary cholangiogram was performed. This demonstrated dilation of the common bile duct just over 1 cm in diameter. The cystic duct did not fill. There were no filling defects appreciated within the dilated common bile duct. At this point, the sphincterotome was withdrawn to the level of the ampulla and a generous biliary sphincterotomy was performed. Following sphincterotomy, multiple passes were made with the 12 to 15 mm balloon, through the bile duct and across the ampulla. In this fashion, a small amount of biliary sludge was extracted. There were no large stones visualized. At this point, the working apparatus was completely withdrawn. The duodenoscope was completely withdrawn and the procedure was complete. Postprocedure fluoroscopic images demonstrated no retroperitoneal or subdiaphragmatic free air. The patient tolerated the procedure well. There were no immediate postprocedure complications. IMPRESSION: 1. Mild ampullary stenosis. 2. Common bile duct dilation to just over 1 cm with no filling defects appreciated on cholangiogram. 3. Successful endoscopic retrograde cholangiopancreatography with biliary sphincterotomy and extraction of a small amount of biliary sludge from the common bile duct. RECOMMENDATIONS: 1. Continue supportive care for pancreatitis. 2. Trend LFTs tomorrow. 3. Obtain surgical consultation for consideration of cholecystectomy. Job ID: [id number]
[2019-01-27] MEDS: Morphine 4 MG/ML VIAL SLOW IVP PRN ×3 (01:31→20:01)
--- NOTE | 2019-01-27 01:53 | CON ---
DATE OF CONSULTATION: HISTORY OF PRESENT ILLNESS: A 48-year-old woman with recurrent episodes of epigastric right upper quadrant abdominal pain for the last 1 month. The pain is associated with intermittent episodes of nausea and occasionally some nonbilious emesis. The patient has had multiple episodes of pancreatitis in the past, which was suspected to be as a result of chronic alcoholism. The patient was admitted 3 days ago following recurrent episodes of abdominal pain. At this time, abdominal ultrasound was obtained, though did not reveal any gallstones; however, common bile duct was markedly dilated for the patient's age. In the interim, the patient developed elevated liver enzymes. She underwent an uneventful ERCP today. I have been asked to evaluate the patient for surgical management. At time of my evaluation, patient is awake and alert. She reports her pain at 5-6/10. She denies any nausea currently. She admits to abdominal bloating, but no fevers or chills. PAST MEDICAL HISTORY: Significant for posttraumatic stress disorder, bipolar disorder, and degenerative arthritic disease. PAST SURGICAL HISTORY: Pertinent for right hip arthroplasty, multiple lumbar injections, surgical history includes bilateral mandibular plasties. SOCIAL HISTORY: The patient drinks 5-6 beers per day and has done so for many years. She smokes marijuana occasionally. She also smokes a few cigarettes, but never up to a pack a day. She denies any other illicit drug abuse. PRE-HOSPITAL MEDICATIONS: Includes: 1. Fluoxetine 60 mg p.o. daily. 2. Carbamazepine 200 mg p.o. b.i.d. 3. Diazepam 10 mg p.o. b.i.d. ALLERGIES: THE PATIENT DENIES ANY KNOWN DRUG ALLERGIES. REVIEW OF SYSTEMS: Ten-point review of systems essentially unremarkable except as stated in past medical history and chief complaint. PHYSICAL EXAMINATION: GENERAL: Reveals a 48-year-old normally developed man, who is otherwise coherent, interactive, and appears stated age. The patient is alert and oriented x3, appears to be in no acute distress at time of my evaluation. VITAL SIGNS: Currently include blood pressure 151/84, pulse 88, respiratory rate is 18, temperature 98.1 degrees Fahrenheit, with the maximum temperature in last 24 hours noted at 98.5 degrees Fahrenheit, and oxygen saturation is 95% on room air. HEENT: Pupils are equal, round, reactive to light and accommodation. She has no scleral icterus present. HEART: Reveals regular rate and rhythm. No murmurs or gallops auscultated. LUNGS: Clear to auscultation bilaterally. Breathing, regular and nonlabored. ABDOMEN: Soft with moderate right upper quadrant tenderness to palpation. She has no Smith sign or rebound tenderness present. Liver and spleen otherwise nonpalpable below costal margins. EXTREMITIES: Reveal 2+ radial and pedal pulses bilaterally. No ankle edema is present. NEUROLOGIC: Reveals no focal deficits present. LABORATORY FINDINGS: Today includes a CBC with 6300 white blood cells. Hemoglobin and hematocrit have remained stable at 9.6 and 28.2 respectively. Platelet count is 173,000. Metabolic profile; sodium 138, potassium 3.9, chloride is 102, bicarb 26, BUN is less than 4, creatinine is 0.6, glucose 71, total bilirubin is 1.5, AST and ALT noted at 67 and 35 respectively. Alkaline phosphatase is elevated at 217. Note that serum lipase on admission 3 days previously was elevated at 320. I have personally reviewed the abdominal ultrasound, which was obtained on admission, this shows no pericholecystic fluid, no gallbladder wall thickening or gallstones. There is some biliary sludge present. Common bile duct, however, is markedly dilated for this patient's age at 11 mm. IMPRESSION: 1. Acute cholecystitis, likely with cholelithiasis given the recent pancreatitis, which is likely gallstone pancreatitis. 2. Resolved choledocholithiasis status post endoscopic retrograde cholangiopancreatography. PLAN: Laparoscopic cholecystectomy. Above findings and plans have been discussed with the patient in the presence of her nurse at bedside. I have advised the patient of the risks and benefits of the proposed surgery to include, but not limited to bleeding, infection, injury to bile duct or surrounding structures. The patient indicates understanding of information given. I have answered her questions. The patient has granted consent for this surgical intervention. Thank you again, Dr. Pedro, for allowing me the opportunity to participate in the care of this patient. Job ID: [id number]
[2019-01-27] MEDS: Dextrose 5%-Lactated Ringers 1,000 ML IV SCH ×4 (03:50→20:02)
[2019-01-27 07:16] LABS: ALT (SGPT) 27 U/L (8-55); AST (SGOT) 38 U/L (5-34); Albumin 2.7 g/dL (3.5-5.0); Alkaline Phosphatase 188 U/L (40-150); Anion Gap 8 mmol/L (10-20); BUN (Urea Nitrogen) Less than 4 mg/dL (7.0-18.7); Bilirubin, Total 0.7 mg/dL (0.2-1.2); Calc. Creatinine Clearance 106 mL/min (70-130); Calcium 8.4 mg/dL (7.8-10.44); Carbon Dioxide 30 mmol/L (22-29); Chloride 104 mmol/L (98-107); Estimated GFR-MDRD Greater than 90; Globulin 2.3 g/dL (2.4-3.5); Glucose 153 mg/dL (70-105); Potassium 4.3 mmol/L (3.5-5.1); Sodium 138 mmol/L (136-145)
[2019-01-27] MEDS: carBAMazepine 200 MG TAB PO SCH ×2 (07:46→20:02)
[2019-01-27] MEDS: FLUoxetine HCl 20 MG CAP PO SCH (07:46)
[2019-01-27] MEDS: Thiamine 100 MG TAB PO SCH (07:47)
[2019-01-27] MEDS: Multivitamin W/ Minerals 1 TAB PO SCH (07:47)
[2019-01-27] MEDS: Magnesium Oxide 400 MG TAB PO SCH (07:47)
[2019-01-27] MEDS: Folic Acid 1 MG TAB PO SCH (07:47)
--- NOTE | 2019-01-27 08:20 | PDOC.FM ---
- Objective Vital Signs & Weight: Vital Signs (12 hours) Temp Pulse Resp BP BP Pulse Ox 01/27/19 07:32 98.2 F 75 20 121/85 96 01/27/19 01:00 118/72 01/27/19 00:00 118/72 Weight Admit Weight 63.957 kg Weight 63.957 kg Result Diagrams: 01/27/19 05:50 01/27/19 05:50 Phys Exam - Physical Examination Constitutional: NAD Respiratory: no wheezing, no rhonchi, clear to auscultation bilateral Cardiovascular: RRR, no significant murmur Gastrointestinal: soft, positive bowel sounds (TTP, unchanged) Musculoskeletal: no edema Neurological: non-focal Psychiatric: normal affect Skin: normal turgor Dx/Plan (1) Pancreatitis Code(s): K85.90 - ACUTE PANCREATITIS WITHOUT NECROSIS OR INFECTION, UNSP Status: Acute (2) Hematochezia Code(s): K92.1 - MELENA Status: Acute (3) Elevated AST (SGOT) Code(s): R74.0 - NONSPEC ELEV OF LEVELS OF TRANSAMNS & LACTIC ACID DEHYDRGNSE Status: Acute (4) Alcohol abuse Code(s): F10.10 - ALCOHOL ABUSE, UNCOMPLICATED Status: Acute (5) Marijuana abuse Code(s): F12.10 - CANNABIS ABUSE, UNCOMPLICATED Status: Acute (6) Tobacco abuse Code(s): Z72.0 - TOBACCO USE Status: Acute (7) Bipolar 2 disorder Code(s): F31.81 - BIPOLAR II DISORDER Status: Acute - Plan Plan: 48 yo F with PMH bipolar and alcohol abuse presents to ED for pain and hemorrhoids and is admitted for pancreatitis Acute pancreatitis - Lipase 320, classic epigastric pain. Doylesburg's score 0. - CT prior to admission showed low density mass in posterior dome of right liver lobe, otherwise negative - US showed common duct distention 1.1 cm, mass in liver is hemangioma, no stones - considering CBD distention and LFTs that trended up during hospitalization, appears more likely 2/2 biliary cause rather than alcohol - WBC wnl. Lactic 2.3->2.2 - Continue IVF. NPO. - morphine for pain control - ERCP 10 sphincterotomy and sludge extraction. Appreciate GI recs - General surgery consulted, Dr Jean plans for clare today for cholecystitis Common bile duct distention - 1.1. visualized on US at admission. No stones seen - T bili, alk phos and AST elevated Hypokalemia, resolved - improved after repletion Alcohol abuse - ASE protocol - will replace thiamine/folate Hematochezia - most likely 2/2 hemorrhoids and pt straining - Hgb 12.6->9.8, will continue to monitor BipolarII - continue home prozac, diazepam, tegretol - tegretol @ therapeutic level Tobacco abuse - nicotine patch and encourage cessation Marijuana abuse Ppx: SCDs PCP: Gilbert Myers Diet: NPO Dispo: plan for cholecystectomy today Addendum - Attending - Attending Attestation Date/Time: 01/27/19 0158 I personally evaluated the patient and discussed the management with Dr. Hunt. I agree with the History, Examination, Assessment and Plan documented above with any addition or exceptions noted below. Subjectively, patient reports feeling overall the same. Continues to have pain but does admit to tolerated CLD yesterday without issue. Doing well s/p ERCP and labs improving. She will be going for lap clare today and hopeful to advance her diet afterwards. Work to wean from pain meds as tolerated for pancreatitis and escalate diet after procedure per Surgery recs.
[2019-01-27 08:33] LABS: #Eosinphils 0.1 thou/uL (0.0-0.7); #Lymphocytes 1.8 thou/uL (1.20-3.40); #Monocytes 0.6 thou/uL (0.11-0.59); #Neutrophils 3.6 thou/uL (1.40-6.50); %Basophils 0.5 % (0.0-1.0); %Eosinophils 1.1 % (0.0-10.0); %Lymphocytes 29.5 % (21.0-51.0); %Neutrophils 58.9 % (42.0-75.0); MDiff Complete? YES; Macrocytosis SLIGHT = 6-15 cells (100X) (0-5/hpf); Mean Corpuscular Hemoglobin 34.6 pg (27.0-31.0); Mean Platelet Volume 7.7 fL (7.4-10.4); Platelet Count 181 thou/uL (130-400); RBC Distribution Width 14.7 % (11.5-14.5); Red Blood Cell (RBC) Count 2.59 mill/uL (4.20-5.40); White Blood Cell (WBC) Count 6.1 thou/uL (4.8-10.8)
[2019-01-27] MEDS: Diazepam 5 MG TAB PO PRN ×2 (09:16→23:23)
[2019-01-27] MEDS ORDERED: Ondansetron PF 4 MG/2 ML Vial ONE ×2 (12:15→12:23)
[2019-01-27] MEDS ORDERED: Morphine 2 MG/ML SYRINGE ONE (12:16)
[2019-01-27] MEDS ORDERED: Midazolam HCl 2 mg/2 ml Vial ONE ×2 (12:16→12:52)
[2019-01-27] MEDS ORDERED: Glycopyrrolate 0.2 MG/ML 5 ML SYRINGE ONE (12:23)
[2019-01-27] MEDS ORDERED: PROPOFOL 200 MG/20 ML VIAL ONE (12:23)
[2019-01-27] MEDS ORDERED: Lidocaine 1% PF 5 ML VIAL ONE (12:23)
[2019-01-27] MEDS ORDERED: Rocuronium Bromide 10 MG/ML (10ML VIAL) ONE (12:23)
[2019-01-27] MEDS ORDERED: Ketorolac Tromethamine 30 MG/ML VIAL ONE (12:23)
[2019-01-27] MEDS ORDERED: Metoclopramide HCl 10 MG/2 ML VIAL ONE (12:23)
[2019-01-27] MEDS ORDERED: Dexamethasone 20 MG/5 ML VIAL ONE (12:23)
[2019-01-27] MEDS ORDERED: Bupivacaine/Epinephrine 0.25% 30 ML VIAL ONE (12:51)
[2019-01-27] MEDS ORDERED: Fentanyl 100 MCG/2 ML VIAL ONE ×3 (12:52→14:42)
[2019-01-27] MEDS ORDERED: Famotidine/PF 20 mg/2ml Vial ONE (12:52)
[2019-01-27] MEDS ORDERED: cefOXitin 2 GM VIAL ONE (13:02)
[2019-01-27] MEDS ORDERED: Sodium Chloride 0.9% 100 ML ONE (13:03)
[2019-01-27] MEDS ORDERED: Ondansetron HCl/PF 4 MG/2 ML Vial IVP PRN (14:13)
[2019-01-27] MEDS ORDERED: Meperidine HCl/PF 25 MG/ML VIAL SLOW IVP PRN (14:13)
[2019-01-27] MEDS ORDERED: Promethazine HCl 25 MG/ML VIAL IM PRN (14:13)
[2019-01-27] MEDS ORDERED: Promethazine HCl 25 MG/ML VIAL SLOW IVP PRN (14:13)
[2019-01-27] MEDS ORDERED: traMADol HCl 50 MG TAB PO PRN (14:26)
[2019-01-27] MEDS ORDERED: Morphine 4 MG/ML VIAL ONE (15:11)
[2019-01-27] MEDS: Nicotine 14 MG PATCH TD SCH (16:44)
--- NOTE | 2019-01-27 16:46 | OP ---
DATE OF PROCEDURE: 01/27/2019 PREOPERATIVE DIAGNOSES: Acute cholecystitis and cholelithiasis. POSTOPERATIVE DIAGNOSES: Acute cholecystitis and cholelithiasis. OPERATION PERFORMED: Laparoscopic cholecystectomy. ANESTHESIA: General endotracheal. ESTIMATED BLOOD LOSS: 10 mL. FLUIDS GIVEN: 1400 mL of crystalloids. COUNTS: Sponge and instrument counts were verified as correct x2. COMPLICATIONS: None apparent at the time of operation. INDICATIONS FOR OPERATION: This is a 48-year-old woman, who presented with recurrent epigastric right upper quadrant abdominal pain. Clinical radiographic examination was consistent with acute cholecystitis and cholelithiasis, for which the patient was brought to the operating room for cholecystectomy. Findings are consistent with dilated gallbladder in the usual anatomic location partially encased by omental adhesions. DESCRIPTION OF PROCEDURE: Informed consent obtained from the patient. She was brought to the operating room and placed in supine position. Following general anesthesia, abdomen was sterilely prepped and draped in usual fashion. Skin below the umbilicus was infiltrated with 0.25% Marcaine with epinephrine. A small curvilinear infraumbilical incision was made using 11 scalpel. Umbilical stalk grasped with Ira and elevated. Veress needle was inserted through this incision and placed in peritoneal cavity through which the abdomen was insufflated with 3 L of CO2 gas. Intraabdominal pressure noted at 3 mmHg. Following abdominal insufflation, Veress needle was removed and a 5 mm trocar introduced using a Visiport under laparoscopy. Laparoscopy confirmed proper placement of the port. No injuries to underlying structures. Additional laparoscopy reveals gallbladder in the usual anatomic location partially encased by omental adhesions. Under direct laparoscopy, a 12 mm epigastric and two 5 mm right lateral subcostal ports were placed after the overlying skin were infiltrated with 0.25% Marcaine with epinephrine. Appropriate incision was made. The patient was placed in a reverse Trendelenburg position, rotated to her left. I introduced a [place] dissector with cautery using this take down omental adhesions from the gallbladder. Prestige grasper introduced through the right lateral subcostal port grasping the fundus of the gallbladder, which was elevated cephalad. Omental adhesions were then taken down from remainder of the gallbladder. Second Prestige grasper introduced through the right medial subcostal port grasping the Ganesh pouch, which was retracted laterally. The cystic duct was carefully dissected free from surrounding structures at the triangle of Calot. The duct was divided between clips applying 2 clips proximally, 1 clip at the junction of the cystic duct and gallbladder. The cystic artery was dissected free from surrounding structures and divided between clips in a similar fashion. The gallbladder itself was removed from the liver bed using cautery. Gallbladder was delivered of the abdominal cavity using an EndoCatch. Operative site was inspected for good hemostasis. A minor oozing from the gallbladder fossa was controlled using 1 x 2 inch piece of Fibrillar. Finding no other pathology, laparoscopy was terminated. Fascia of the epigastric port was closed using 0 Vicryl suture and Endoclosure device on the laparoscopy. The abdomen was desufflated. All ports and instruments removed and accounted for. Skin incisions closed using 4-0 Monocryl suture in subcuticular fashion. Dermabond was applied over incisional closure. The patient tolerated the operation without any apparent complication and was returned to recovery room in satisfactory condition. Job ID: [id number]
[2019-01-27] MEDS: Ketorolac Tromethamine 30 MG/ML VIAL IVP SCH ×2 (18:42→23:23)
[2019-01-27] MEDS: Acetaminophen 500 MG TAB PO SCH ×2 (18:45→23:22)
[2019-01-28] MEDS: Morphine 4 MG/ML VIAL SLOW IVP PRN (01:38)
[2019-01-28] MEDS: Acetaminophen 500 MG TAB PO SCH ×3 (05:33→18:32)
[2019-01-28] MEDS: Ketorolac Tromethamine 30 MG/ML VIAL IVP SCH ×3 (05:33→18:34)
[2019-01-28] MEDS: Dextrose 5%-Lactated Ringers 1,000 ML IV SCH ×3 (05:34→22:13)
[2019-01-28 06:24] LABS: ALT (SGPT) 24 U/L (8-55); AST (SGOT) 45 U/L (5-34); Albumin 1.9 g/dL (3.5-5.0); Alkaline Phosphatase 118 U/L (40-150); Bilirubin, Direct 0.3 mg/dL (0.1-0.3); Bilirubin, Total 0.4 mg/dL (0.2-1.2); Protein, Total 3.6 g/dL (6.0-8.3)
--- NOTE | 2019-01-28 06:37 | PDOC.FM ---
- Subjective Subjective: Ms. Anand says she has continued abdominal pain though it has improved some. Tenderness at incisions. Has tolerated tea overnight well. Passing gas. Denies SOB, CP. - Objective MAR Reviewed: Yes Vital Signs & Weight: Vital Signs (12 hours) Temp Pulse Resp BP Pulse Ox 01/28/19 04:00 98.3 F 77 16 145/86 H 96 01/28/19 00:00 98.0 F 76 16 115/67 96 01/27/19 19:41 97.8 F 71 18 138/85 100 Weight Admit Weight 63.957 kg Weight 63.957 kg I&O: 01/26/19 01/27/19 01/28/19 06:59 06:59 06:59 Intake Total 2280 Balance 2280 Result Diagrams: 01/27/19 05:50 01/28/19 07:02 Phys Exam - Physical Examination Constitutional: NAD Respiratory: no wheezing, clear to auscultation bilateral Cardiovascular: RRR, no significant murmur Gastrointestinal: soft, no distention (appropriately TTP), positive bowel sounds Musculoskeletal: no edema Neurological: non-focal Psychiatric: normal affect Skin: normal turgor Dx/Plan (1) Pancreatitis Code(s): K85.90 - ACUTE PANCREATITIS WITHOUT NECROSIS OR INFECTION, UNSP Status: Acute (2) Hematochezia Code(s): K92.1 - MELENA Status: Acute (3) Elevated AST (SGOT) Code(s): R74.0 - NONSPEC ELEV OF LEVELS OF TRANSAMNS & LACTIC ACID DEHYDRGNSE Status: Acute (4) Alcohol abuse Code(s): F10.10 - ALCOHOL ABUSE, UNCOMPLICATED Status: Acute (5) Marijuana abuse Code(s): F12.10 - CANNABIS ABUSE, UNCOMPLICATED Status: Acute (6) Tobacco abuse Code(s): Z72.0 - TOBACCO USE Status: Acute (7) Bipolar 2 disorder Code(s): F31.81 - BIPOLAR II DISORDER Status: Acute - Plan Plan: 48 yo F with PMH bipolar and alcohol abuse presents to ED for pain and hemorrhoids and is admitted for pancreatitis Acute pancreatitis/cholecystitis - POD #1 s/p lap clare - Lipase 320, classic epigastric pain. Lisandro's score 0. - CT prior to admission showed low density mass in posterior dome of right liver lobe, otherwise negative - US showed common duct distention 1.1 cm, mass in liver is hemangioma, no stones - considering CBD distention and LFTs that trended up during hospitalization, appears more likely 2/2 biliary cause - WBC wnl. Lactic 2.3->2.2 - ADAT, add stool softener - transition to PO pain medications - ERCP 5/10 sphincterotomy and sludge extraction. Appreciate GI recs - General surgery consulted, Dr Jean. Common bile duct distention - 1.1. visualized on US at admission. No stones seen - T bili, alk phos and AST elevated Hypokalemia, resolved - improved after repletion Alcohol abuse - ASE protocol - will replace thiamine/folate Hematochezia - most likely 2/2 hemorrhoids and pt straining - Hgb stable BipolarII - continue home prozac, diazepam, tegretol - tegretol @ therapeutic level Tobacco abuse - nicotine patch and encourage cessation Marijuana abuse Ppx: SCDs PCP: Gilbert Myers Diet: CL Dispo: Possible d/c later today if tolerating PO intake well Addendum - Attending - Attending Attestation Date/Time: 01/28/19 1110 I personally evaluated the patient and discussed the management with Dr. Hunt. I agree with the History, Examination, Assessment and Plan documented above with any addition or exceptions noted below. Patient now s/p ERCP and lap clare. Has some tenderness this morning but reports improvement in pain. Tolerating CLD well. Advance this morning and assess toleration. Wean from pain meds as able though might be difficult due to her surgical wounds. Assess diet tolerance and possible d/c home this afternoon or tomorrow pending clinical course and surgery recs.
[2019-01-28] MEDS ORDERED: Polyethylene Glycol 3350 17 GM Packet PO PRN (07:32)
[2019-01-28] MEDS: Thiamine 100 MG TAB PO SCH (08:05)
[2019-01-28] MEDS: Docusate 100 MG CAP PO SCH ×2 (08:06→20:30)
[2019-01-28] MEDS: FLUoxetine HCl 20 MG CAP PO SCH (08:07)
[2019-01-28] MEDS: traMADol HCl 50 MG TAB PO PRN ×3 (08:07→22:02)
[2019-01-28] MEDS: Multivitamin W/ Minerals 1 TAB PO SCH (08:07)
[2019-01-28] MEDS: Folic Acid 1 MG TAB PO SCH (08:08)
[2019-01-28] MEDS: carBAMazepine 200 MG TAB PO SCH ×2 (08:08→20:30)
[2019-01-28] MEDS: Magnesium Oxide 400 MG TAB PO SCH (08:08)
[2019-01-28 09:24] LABS: #Eosinphils 0.1 thou/uL (0.0-0.7); #Lymphocytes 1.9 thou/uL (1.20-3.40); #Monocytes 0.5 thou/uL (0.11-0.59); #Neutrophils 3.6 thou/uL (1.40-6.50); %Basophils 0.6 % (0.0-1.0); %Lymphocytes 31.4 % (21.0-51.0); %Monocytes 8.3 % (0.0-10.0); %Neutrophils 57.8 % (42.0-75.0); Hemoglobin 9.9 g/dL (12.0-16.0); Mean Corpuscular HGB CONC 32.4 g/dL (32.0-36.0); Mean Corpuscular Hemoglobin 34.3 pg (27.0-31.0); Mean Platelet Volume 7.7 fL (7.4-10.4); Platelet Count 197 thou/uL (130-400); RBC Distribution Width 14.8 % (11.5-14.5); White Blood Cell (WBC) Count 6.2 thou/uL (4.8-10.8)
[2019-01-28 09:51] LABS: ALT (SGPT) 39 U/L (8-55); AST (SGOT) 67 U/L (5-34); Alkaline Phosphatase 181 U/L (40-150); Anion Gap 11 mmol/L (10-20); BUN (Urea Nitrogen) Less than 4 mg/dL (7.0-18.7); Bilirubin, Total 0.6 mg/dL (0.2-1.2); Calc. Creatinine Clearance 111 mL/min (70-130); Calcium 8.4 mg/dL (7.8-10.44); Carbon Dioxide 25 mmol/L (22-29); Chloride 107 mmol/L (98-107); Estimated GFR-MDRD Greater than 90; Globulin 2.4 g/dL (2.4-3.5); Glucose 85 mg/dL (70-105); Potassium 3.3 mmol/L (3.5-5.1); Protein, Total 5.4 g/dL (6.0-8.3); Sodium 140 mmol/L (136-145)
--- NOTE | 2019-01-28 11:34 | PRG ---
DATE OF SERVICE: 01/28/2019 SUBJECTIVE: Ms. Anand underwent cholecystectomy yesterday. This was uncomplicated and went well. Surgical team has advanced her to a regular diet. She complains of abdominal pain, but this is primarily at the incision sites. There is no nausea or vomiting and her bowel function has returned and she just had a good bowel movement. Laboratories remain favorable. OBJECTIVE: VITAL SIGNS: Temperature 98.2, pulse 88, blood pressure 153/83, and 92% oxygen saturation on room air. GENERAL: No acute distress. HEART: Regular rate and rhythm. LUNGS: Clear to auscultation bilaterally. ABDOMEN: Bowel sounds are present. The abdomen is soft, though tender to palpation diffusely throughout. However, the patient is able to ambulate about the room without any difficulty, so there are no peritoneal signs. EXTREMITIES: No peripheral edema. LABORATORY STUDIES: WBC 6.2, hemoglobin 9.9, and platelets 197. Sodium 140, potassium 3.3, BUN less than 4, creatinine 0.63, total bilirubin is down to 0.4, alkaline phosphatase 118, AST 45, and ALT 24. ASSESSMENT AND PLAN: 1. Acute pancreatitis, recurrent. 2. Cholelithiasis and biliary sludge, now status post endoscopic retrograde cholangiopancreatography with biliary sphincterotomy and sludge extraction 2 days ago, and cholecystectomy yesterday. Clinically, the patient is improving. Dietary advancement per Surgical Service. I anticipate the patient will do well. No barriers to discharge from a GI perspective once the patient is tolerating her diet and pain is well controlled. Please call anytime with questions or concerns. Job ID: [id number]
[2019-01-28] MEDS: Ondansetron PF 4 MG/2 ML Vial IVP PRN (12:00)
[2019-01-28] MEDS: Nicotine 14 MG PATCH TD SCH (12:03)
[2019-01-28] MEDS: Diazepam 5 MG TAB PO PRN (13:15)
--- NOTE | 2019-01-28 14:49 | PRG ---
DATE OF SERVICE: 01/28/2019 CONSULTING PHYSICIAN: Dr. Jean HISTORY OF PRESENT ILLNESS: This is 48-year-old woman with recurrent episodes of epigastric right upper quadrant abdominal pain for the last month. The patient is postop day #1 laparoscopic cholecystectomy. The patient had no overnight events. The patient's pain seems to be well controlled. The patient is tolerating a regular diet. OBJECTIVE: VITAL SIGNS: Temperature 98.2, pulse 88, respirations 18, SpO2 of 93% on room air, blood pressure 153/83. GENERAL: The patient is awake and alert, in no distress, oriented x3. HEENT: Normocephalic, atraumatic. Mucous membranes are moist. HEART: Regular rate and rhythm. LUNGS: Breathing is regular and nonlabored, equal chest excursion. ABDOMEN: Soft, nondistended. Incision site is well healed. EXTREMITIES: No pedal edema, pulses 2+ bilateral. NEUROLOGIC: No focal deficits. LABORATORY DATA: WBC 6.2, RBC 2.90, hemoglobin 9.9, hematocrit 30.7. Sodium 140, potassium 3.3, chloride 107, CO2 25, BUN less than 4, creatinine 0.63, estimated GFR greater than 90, glucose 85, calcium 8.4, total bilirubin 0.6, AST 67, ALT 39, alkaline phos 181. Serum total protein 5.4, globulin 2.4, albumin 3.0. IMPRESSION: 1. Cholelithiasis, postoperative day #1 laparoscopic cholecystectomy. 2. Pancreatitis. PLAN: The patient has been instructed to avoid alcohol use. Continue regular diet. The patient able to be discharged home from a surgical standpoint. The patient is to follow up with Dr. Jean's clinic on February 08 at 11:00 a.m. Please let us know, if you have any questions . Thanks for letting us participate in the patients care. Job ID: [id number] [facility]
[2019-01-29] MEDS: Diazepam 5 MG TAB PO PRN ×2 (00:25→11:54)
[2019-01-29] MEDS: Acetaminophen 500 MG TAB PO SCH ×3 (00:26→11:54)
--- NOTE | 2019-01-29 06:57 | PDOC.FM ---
- Subjective Subjective: Ms Anand reports some continued pain though it has been well controlled. Tolerating yogurt well. - Objective Vital Signs & Weight: Vital Signs (12 hours) Temp Pulse Resp BP BP Pulse Ox 01/28/19 21:00 124/85 01/28/19 19:20 97.8 F 78 16 124/85 97 Weight Admit Weight 63.957 kg Weight 63.957 kg I&O: 01/27/19 01/28/19 01/29/19 06:59 06:59 06:59 Intake Total 2280 Balance 2280 Result Diagrams: 01/29/19 06:48 01/29/19 06:48 Phys Exam - Physical Examination Constitutional: NAD Respiratory: no wheezing, no rhonchi, clear to auscultation bilateral Cardiovascular: RRR, no significant murmur Gastrointestinal: soft, positive bowel sounds (appropriately TTP. Incisions sites clean, intact) Musculoskeletal: no edema Neurological: non-focal Psychiatric: normal affect Skin: normal turgor Dx/Plan (1) Pancreatitis Code(s): K85.90 - ACUTE PANCREATITIS WITHOUT NECROSIS OR INFECTION, UNSP Status: Acute (2) Hematochezia Code(s): K92.1 - MELENA Status: Acute (3) Elevated AST (SGOT) Code(s): R74.0 - NONSPEC ELEV OF LEVELS OF TRANSAMNS & LACTIC ACID DEHYDRGNSE Status: Acute (4) Alcohol abuse Code(s): F10.10 - ALCOHOL ABUSE, UNCOMPLICATED Status: Acute (5) Marijuana abuse Code(s): F12.10 - CANNABIS ABUSE, UNCOMPLICATED Status: Acute (6) Tobacco abuse Code(s): Z72.0 - TOBACCO USE Status: Acute (7) Bipolar 2 disorder Code(s): F31.81 - BIPOLAR II DISORDER Status: Acute - Plan Plan: 48 yo F with PMH bipolar and alcohol abuse presents to ED for pain and hemorrhoids and is admitted for pancreatitis Acute pancreatitis/cholecystitis - POD #2 s/p lap clare - Lipase 320, classic epigastric pain. Purcell's score 0. - CT prior to admission showed low density mass in posterior dome of right liver lobe, otherwise negative - US showed common duct distention 1.1 cm, mass in liver is hemangioma, no stones - ADAT, stool softener, PO pain medications - ERCP 5/10 sphincterotomy and sludge extraction. Appreciate GI recs - General surgery consulted, Dr Jean. Common bile duct distention - 1.1. visualized on US at admission. No stones seen - T bili, alk phos and AST elevated Hypokalemia - will replace Alcohol abuse - ASE protocol - will replace thiamine/folate Hematochezia - most likely 2/2 hemorrhoids and pt straining - Hgb stable BipolarII - continue home prozac, diazepam, tegretol - tegretol @ therapeutic level Tobacco abuse - nicotine patch and encourage cessation Marijuana abuse Ppx: SCDs PCP: Gilbert Myers Diet: CL Dispo: Discharge home today Addendum - Attending - Attending Attestation Date/Time: 01/29/19 7483 I personally evaluated the patient and discussed the management with Dr. Hunt I agree with the History, Examination, Assessment and Plan documented above with any addition or exceptions noted below. POD # 2 patient doing well VSS heart NSR lungs CTA abdomen soft positive BS , taking po, pain controlled with oral medication will dismiss for further f/u as outpatient.
[2019-01-29] MEDS ORDERED: Potassium Chloride 20 MEQ TAB PO SCH (07:00)
[2019-01-29] MEDS: Dextrose 5%-Lactated Ringers 1,000 ML IV SCH (07:24)
[2019-01-29 07:29] LABS: ALT (SGPT) 35 U/L (8-55); AST (SGOT) 56 U/L (5-34); Albumin 2.7 g/dL (3.5-5.0); Alkaline Phosphatase 154 U/L (40-150); Anion Gap 9 mmol/L (10-20); BUN (Urea Nitrogen) Less than 4 mg/dL (7.0-18.7); Bilirubin, Total 0.6 mg/dL (0.2-1.2); Calc. Creatinine Clearance 119 mL/min (70-130); Carbon Dioxide 28 mmol/L (22-29); Chloride 106 mmol/L (98-107); Estimated GFR-MDRD Greater than 90; Globulin 2.2 g/dL (2.4-3.5); Glucose 92 mg/dL (70-105); Potassium 3.5 mmol/L (3.5-5.1); Protein, Total 4.9 g/dL (6.0-8.3); Sodium 139 mmol/L (136-145)
[2019-01-29 07:31] LABS: #Eosinphils 0.1 thou/uL (0.0-0.7); #Lymphocytes 1.4 thou/uL (1.20-3.40); #Monocytes 0.4 thou/uL (0.11-0.59); %Basophils 0.4 % (0.0-1.0); %Eosinophils 1.7 % (0.0-10.0); %Lymphocytes 23.1 % (21.0-51.0); %Monocytes 7.4 % (0.0-10.0); %Neutrophils 67.5 % (42.0-75.0); Hemoglobin 9.8 g/dL (12.0-16.0); Mean Corpuscular HGB CONC 33.4 g/dL (32.0-36.0); Mean Corpuscular Hemoglobin 34.9 pg (27.0-31.0); Mean Platelet Volume 7.8 fL (7.4-10.4); Platelet Count 201 thou/uL (130-400); RBC Distribution Width 14.5 % (11.5-14.5); White Blood Cell (WBC) Count 5.9 thou/uL (4.8-10.8)
[2019-01-29] MEDS: Folic Acid 1 MG TAB PO SCH (07:53)
[2019-01-29] MEDS: FLUoxetine HCl 20 MG CAP PO SCH (07:53)
[2019-01-29] MEDS: Magnesium Oxide 400 MG TAB PO SCH (07:53)
[2019-01-29] MEDS: Multivitamin W/ Minerals 1 TAB PO SCH (07:54)
[2019-01-29] MEDS: Docusate 100 MG CAP PO SCH (07:54)
[2019-01-29] MEDS: Thiamine 100 MG TAB PO SCH (07:54)
[2019-01-29] MEDS: carBAMazepine 200 MG TAB PO SCH (07:54)
[2019-01-29] MEDS: Nicotine 14 MG PATCH TD SCH (11:54)
[2019-01-29 12:00] VITALS: BP 118/79; TEMP 98.7
--- NOTE | 2019-01-30 08:32 | DIS ---
DATE OF ADMISSION: 01/23/2019 DATE OF DISCHARGE: 01/29/2019 RESIDENT: Heide Hunt DO ADMITTING ATTENDING: Yusuf Resendez MD DISCHARGE ATTENDING: Dr. Braden. CONSULTS: 1. General Surgery, Dr. Jean. 2. GI, Dr. Pedro. PROCEDURES: 1. 01/23/2019, abdominal ultrasound showed common duct distention up to 1.1 cm. No other significant abnormalities. 2. 01/26/2019, ERCP with biliary sphincterotomy and sludge extraction. 3. 01/27/2019, laparoscopic cholecystectomy. PRIMARY DIAGNOSES: 1. Acute pancreatitis. 2. Acute cholecystitis. 3. Common bile duct distention. 4. Hypokalemia. 5. Hematochezia. 6. Alcohol abuse. SECONDARY DIAGNOSES: 1. Bipolar disorder. 2. Tobacco abuse. 3. Marijuana abuse. DISCHARGE MEDICATIONS: 1. Fluoxetine 60 mg p.o. daily. 2. Carbamazepine 200 mg p.o. b.i.d. 3. Diazepam 10 mg p.o. b.i.d. p.r.n. 4. Tylenol 1000 mg p.o. q.6 hours. 5. Ibuprofen 800 mg p.o. q.8 hours. HISTORY OF PRESENT ILLNESS: A 48-year-old female presented for abdominal pain with decreased p.o. intake and appetite associated with nausea, vomiting. Epigastric pain is not associated with fever or chills. She said this pain was similar to her previous episodes of pancreatitis. This would be the fourth or fifth. She also notes some bright red blood per rectum for a few days, which she attributes to hemorrhoids. The patient was admitted for acute recurrent pancreatitis. It was thought to be likely secondary to alcohol abuse as initially her liver enzymes and bilirubin were not suggestive of other cause. She was n.p.o. and given fluids and pain control. The patient showed very mild improvement over the next two days. Her total bilirubin and AST bumped, and GI was consulted for further evaluation considering the common bile duct distention. No stones were seen. They completed an ERCP with results as above. After this ERCP, General Surgery was consulted and cholecystectomy was completed for what was thought to be acute cholecystitis as well. The patient tolerated these procedures well and had normal postoperative course. At the time of discharge, she was able to tolerate soft foods and yogurts without any issues. Her pain had been well controlled. DISPOSITION: Stable. DISCHARGE INSTRUCTIONS: 1. Location: Home. 2. Diet: Regular. 3. Activity: As tolerated. 4. Followup: Follow up with PCP, Dr. Taisha Myers, within 7 days. Follow up with Dr. Poncho Jean on 02/08/2019 at 11:00 a.m. Job ID: [id number]
== END 2019-01-29 12:50 | disposition home or self-care (01) | DRG 417 ==
LOC: ERS 09:49 → T4-B 17:34
PROVIDERS: ADMIT Student in an Organized Health Care Education/Training Program; ATTEND Student in an Organized Health Care Education/Training Program
PROC: 0FT44ZZ Resection of Gallbladder, Percutaneous Endoscopic Approach (ICD-10-PCS; principal; 2019-01-26)
PROC: 0DNU4ZZ Release Omentum, Percutaneous Endoscopic Approach (ICD-10-PCS; 2019-01-26)
PROC: 0F798ZZ Dilation of Common Bile Duct, Via Natural or Artificial Opening Endoscopic (ICD-10-PCS; 2019-01-26)
DX: K80.00 Calculus of gallbladder with acute cholecystitis without obstruction (principal); K85.20 Alcohol induced acute pancreatitis without necrosis or infection; F31.81 Bipolar II disorder; F10.188 Alcohol abuse with other alcohol-induced disorder; K86.0 Alcohol-induced chronic pancreatitis; F43.10 Post-traumatic stress disorder, unspecified; F17.210 Nicotine dependence, cigarettes, uncomplicated; F41.9 Anxiety disorder, unspecified; F10.10 Alcohol abuse, uncomplicated; F12.10 Cannabis abuse, uncomplicated; D18.03 Hemangioma of intra-abdominal structures; K64.9 Unspecified hemorrhoids; R74.0 Nonspecific elevation of levels of transaminase and lactic acid dehydrogenase [LDH]; E87.6 Hypokalemia; Z79.899 Other long term (current) drug therapy
CPT/HCPCS: 36415; 36416; 74177; 74330; 76705; 80053; 80061; 80156; 81003; 83605; 83615; 83690; 85025; 86850; 86900; 86901; 88304; 90471; 90732; 96361; 96374; 96375; 96376; G0009; J0694; J1100; J1885; J2001; J2250; J2270; J2405; J2550; J2704; J2765; J3010; J3411; J3475; J3480; J3490; J7042; Q0162; Q9961; Q9966; S0028

== ENCOUNTER 2019-03-01 08:04 | Inpatient (IN) | payer MEDICARE, MEDICAID ==
[2019-03-01] MEDS ORDERED: Morphine 4 MG/ML VIAL ONE ×2 (08:39→10:11)
[2019-03-01] MEDS ORDERED: Ondansetron PF 4 MG/2 ML Vial ONE (08:40)
[2019-03-01 08:46] LABS: Hemoglobin 12.7 g/dL (12.0-16.0); Mean Corpuscular HGB CONC 32.5 g/dL (32.0-36.0); Mean Corpuscular Hemoglobin 33.3 pg (27.0-31.0); Mean Platelet Volume 7.5 fL (7.4-10.4); Platelet Count 289 thou/uL (130-400); RBC Distribution Width 13.6 % (11.5-14.5); Red Blood Cell (RBC) Count 3.83 mill/uL (4.20-5.40); White Blood Cell (WBC) Count 6.2 thou/uL (4.8-10.8)
[2019-03-01 09:10] LABS: ALT (SGPT) 14 U/L (8-55); AST (SGOT) 25 U/L (5-34); Albumin 4.2 g/dL (3.5-5.0); Alkaline Phosphatase 79 U/L (40-150); Anion Gap 15 mmol/L (10-20); BUN (Urea Nitrogen) 9 mg/dL (7.0-18.7); Bilirubin, Total 0.4 mg/dL (0.2-1.2); Calc. Creatinine Clearance 0 mL/min (70-130); Calcium 8.9 mg/dL (7.8-10.44); Carbon Dioxide 26 mmol/L (22-29); Chloride 101 mmol/L (98-107); Estimated GFR-MDRD 84; Globulin 2.7 g/dL (2.4-3.5); Glucose 85 mg/dL (70-105); Lipase 55 U/L (8-78); Potassium 4.1 mmol/L (3.5-5.1); Protein, Total 6.9 g/dL (6.0-8.3); Sodium 138 mmol/L (136-145)
[2019-03-01 09:22] LABS: Band 1 % (5-11); Eosinophils 2 % (0-10); Lymphocytes 57 % (21-51); MDiff Complete? YES; Monocytes 3 % (0-10); Neutrophil 36 % (42-75); RBC Morphology Normal; Reactive Lymphocytes 1 % (0-10)
--- NOTE | 2019-03-01 09:24 | ULT ---
GALLBLADDER ULTRASOUND: Date: 03/01/19 COMPARISON: 01/23/19. CLINICAL HISTORY: Pain status post cholecystectomy. FINDINGS: Gallbladder is surgically absent. The liver reveals no focal hepatic lesion. No ascites. Common duct is prominent, likely related to reservoir effect from prior cholecystectomy, 1.1 cm in diameter. No a scites visualized. IMPRESSION: 1. Status post cholecystectomy. 2. No discrete evidence for acute abnormality of the right upper quadrant. POS: C
[2019-03-01 09:53] LABS: Bilirubin Negative (Negative); Blood, Urine Negative (Negative); Clarity CLEAR (Clear); Glucose, Urine (Dipstick) Negative (Negative); Leukocyte Negative (Negative); Nitrite Negative (Negative); Protein, Urine (Dipstick) Trace mg/dL (Neg-Trace); Specific Gravity, Urine 1.021 (1.002-1.036); pH, Urine 6.5 (5.0-9.0)
[2019-03-01 09:54] LABS: Pregnancy Test - Urine (BHCG) Negative (Negative); Pregu Control Background? CLEAR/WHITE (CLR/WHITE); Pregu Control Bar Appear? YES (CONTROL BAR); Specific Gravity 1.021 (1.002-1.036)
--- NOTE | 2019-03-01 10:48 | CT ---
CT Abdomen Pelvis W Con History: Right-sided abdominal pain Comparison: CT abdomen and pelvis January 22, 2019 Findings: Lung bases are clear. No pericardial effusion. Adak effect from prior cholecystectomy. There is a hypodensity hepatic segment 8 incompletely ev aluated. There is abnormal hyperenhancement of the sigmoid colon and portions of the descending colon. Is also abnormal hyperenhancement and air-fluid level within the hepatic flexure. Small foci of pneumatosis of the cecum and portions of the ascending colon. Appendix is visualized and is normal. No hydronephrosis. The aortoiliac contour is normal. Adrenal glands and kidneys are unremarkable. Superior mesenteric artery is patent as well as the siri ac trunk. There is dilatation of the pancreatic duct, new from the comparison examination. Mild intrahepatic biliary dilatation.. There are multiple healing right posterior rib fractures. Impression: 1. Nonformed stool within the ascending colon and hepatic flexure with few foci of pneumatosis. Recom mend correlation with lactic acid levels. Superior mesenteric artery is patent. 2. Hyperenhancement likely a focal area of stricturing with of the sigmoid colon with increased mesen teric fat just suggesting active colitis from inflammatory bowel disease. 3. Hypodensity liver is too small fully characterize on this exam. 4. Cholecystectomy with intrahepatic and extrahepatic biliary dilatation as well as dilatation of anderson creatic duct. This is greater than would be expected for reservoir effect. ERCP recommended.
--- NOTE | 2019-03-01 12:52 | PDOC.FPRHP ---
- History of Present Illness Chief Complaint: abdominal pain History of Present Illness: 48yoF with pmh of IBS and lap clare 1 month ago complains of 4 day hx of RUQ and RLQ abdominal pain that has been fluctuating in severity and increasing. Reports pain is more severe than pain prior to procedure a month ago and that initially she did well after surgery. She has also felt nausea (no vomiting), no constipation, one episode of diarrhea yesterday. No upper or lower GIB. Reports she has not felt this kind of pain before. No trends with mealtimes. Laying on L side is palliating. ED Course: morphine 16mg, zofran 4mg, NS 1L, General surgery consultation. - Allergies/Adverse Reactions Allergies Allergy/AdvReac Type Severity Reaction Status Date / Time No Known Allergies Allergy Verified 03/01/19 13:10 - Home Medications Medication Instructions Recorded Confirmed Type Diazepam [Valium] 10 mg PO TID PRN 01/23/19 03/01/19 History FLUoxetine HCl [Fluoxetine HCl] 60 mg PO DAILY 01/23/19 03/01/19 History carBAMazepine [Carbamazepine] 200 mg PO BID 01/23/19 03/01/19 History Acetaminophen [Tylenol Extra 1,000 mg PO Q6HR tab 01/29/19 03/01/19 Rx Strength] Ibuprofen 800 mg PO Q8H #30 tablet 01/29/19 03/01/19 Rx Acamprosate Calcium 666 mg PO DAILY 03/01/19 03/01/19 History Nicotine Polacrilex [Nicotine 2 mg BC TID PRN 03/01/19 03/01/19 History Lozenge] diphenhydrAMINE [Benadryl] 50 mg PO HS PRN 03/01/19 03/01/19 History - History PMHx: Bipolar, PTSD, IBS PSHx: cholecystectomy, R hip, L & R mandible, lumbar injections FHx: HTN Social: Formerly drank 6beers/day but now has cut back to 1.5 glasses of wine per night for the last month. quit smoking 1 month ago. Marijuana use. Lives with spouse, Kale. - Review of Systems General: denies: fever/chills, fatigue Eyes: denies: eye pain, vision changes ENT: denies: nasal congestion Respiratory: denies: cough, congestion Cardiovascular: denies: chest pain, palpitation Gastrointestinal: reports: nausea, diarrhea, abdominal pain. denies: vomiting, constipation, GI bleeding Skin: denies: rashes, lesions Musculoskeletal: denies: pain, tenderness Neurological: denies: numbness, syncope, seizure Psychological: denies: anxiety, depression - Vital signs BP: 111/75, Pulse: 85, Resp: 18, Temp: 97.4, Pain: 6, O2 sat: 95, Time: 2018 11:32. weight 61kg - Physical Exam Constitutional: awake, alert and oriented, well developed HEENT: EOMI, conjunctiva clear, grossly normal vision, grossly normal hearing Neck: supple, trachea midline Chest: no-tender to palpation Heart: RRR, normal S1/S2 Lungs: CTAB, no respiratory distress Abdomen: other -Abdomen: normal BS, moderate TTP on RUQ and RLQ, minimal guarding, no rebound tenderness. Musculoskeletal: normal structure, normal tone Neurological: no focal deficit, normal sensation Skin: no rash/lesions, good turgor Heme/Lymphatic: no unusual bruising or bleeding, no purpura, no petechia Psychiatric: normal mood and affect, good judgment and insight FMR H&P: Results - Labs Result Diagrams: 03/02/19 04:41 03/01/19 08:31 Lab results: WBC 6.2 thou/uL (4.8-10.8) 03/01/19 08:31 Hgb 12.7 g/dL (12.0-16.0) 03/01/19 08:31 Hct 39.2 % (36.0-47.0) 03/01/19 08:31 MCV 102.0 fL (78.0-98.0) H 03/01/19 08:31 Plt Count 289 thou/uL (130-400) 03/01/19 08:31 Band Neuts % (Manual) 1 % (5-11) L 03/01/19 08:31 Sodium 138 mmol/L (136-145) 03/01/19 08:31 Potassium 4.1 mmol/L (3.5-5.1) 03/01/19 08:31 Chloride 101 mmol/L (98-107) 03/01/19 08:31 Carbon Dioxide 26 mmol/L (22-29) 03/01/19 08:31 BUN 9 mg/dL (7.0-18.7) 03/01/19 08:31 Creatinine 0.74 mg/dL (0.6-1.1) 03/01/19 08:31 Glucose 85 mg/dL (70-105) 03/01/19 08:31 Lactic Acid 2.0 mmol/L (0.5-2.2) 03/01/19 11:15 Calcium 8.9 mg/dL (7.8-10.44) 03/01/19 08:31 Total Bilirubin 0.4 mg/dL (0.2-1.2) 03/01/19 08:31 AST 25 U/L (5-34) 03/01/19 08:31 ALT 14 U/L (8-55) 03/01/19 08:31 Alkaline Phosphatase 79 U/L (40-150) 03/01/19 08:31 Serum Total Protein 6.9 g/dL (6.0-8.3) 03/01/19 08:31 Albumin 4.2 g/dL (3.5-5.0) 03/01/19 08:31 Lipase 55 U/L (8-78) 03/01/19 08:31 Urine Ketones Negative mg/dL (Negative) 03/01/19 09:37 Urine Blood Negative (Negative) 03/01/19 09:37 Urine Nitrite Negative (Negative) 03/01/19 09:37 Ur Leukocyte Esterase Negative (Negative) 03/01/19 09:37 FMR H&P: A/P - Problem List (1) Abdominal pain Current Visit: Yes Status: Acute Code(s): R10.9 - UNSPECIFIED ABDOMINAL PAIN (2) Bipolar 2 disorder Current Visit: No Status: Acute Code(s): F31.81 - BIPOLAR II DISORDER (3) Marijuana abuse Current Visit: No Status: Acute Code(s): F12.10 - CANNABIS ABUSE, UNCOMPLICATED (4) Tobacco abuse Current Visit: No Status: Acute Code(s): Z72.0 - TOBACCO USE - Plan RUQ pain A- etiology unclear at this time. Possibly bile leak from cholecystectomy vs. colitis. CT concerning for IBD. General surgery consulted in ER. P- controll pain with morphine -stool FOBT, ova and parasites, c diff, shiga, campylobacter -Continue clear liquid diet -f/u surgery recs Bipolar -home meds PTSD -home meds EtOH abuse -ASE protocol Marijuana abuse -encourage cessation. Diet: Clear liquid diet. CODE: FULL FMR H&P: Upper Level - Pertinent history 48 yo WF PMH Bipolar disorder, EtOH abuse, marijuana abuse, and 1 month s/p laparoscopic cholecystectomy. Presents with 3-4 day hx of RUQ pain that has since spread diffusely through out the abdomen, nausea, and vomiting. States pain feels worse than previous gallbladder pain. Reports one episode of diarrhea yesterday but has otherwise been unable to have a BM. Denies BRBPR or hematemesis. Denies recent travel or sick contacts. Reports daily marijuana use and occasional alcohol use. ER: Labs, CT abdomen/pelvis, RUQ US, morphine 16mg, zofran 4mg, NS 1L, General surgery consultation. - Pertinent findings Vitals: WNL. GEN: Mild discomfort with movement, otherwise WNL. CV: RRR, no murmur PUlm: CTA-B Abd: BS presents. TTP most severe in RUQ. Labs: Unremarkable CT Abdomen: Post operative changes. pneummatosis at hepatic flexure, sigmoid colon structure, liver hypodentsity. RUQ US: post operative changes - Plan Date/Time: 03/01/19 1252 I, Len Verduzco MD, have evaluated this patient and agree with findings/plan as outlined by internet marketing specialist resident. Pertinent changes/additions are listed here. 1. RUQ pain: etiology unclear at this time. Bile leak for cholecystecotmy is possible but unlikely this far out from surgery. CT also concerning for IBD. Consider GI consult. General surgery consulted in ER. Continue clear liquid diet. IV morphine and bentyl for pain management. Will order stool lactoferrin, C-diff, O&P, and culture. 2. EtOH abuse: ASE protocol 3. Marijuana abuse: encourage cessation. 4. Chronic conditions per internet marketing specialist note. Diet: Clear liquid diet. PPx: SCD CODE: FULL Dispo: obs, medical, <2 midnights. Addendum - Attending - Attending Attestation Date/Time: 03/02/19 4279 I personally evaluated the patient and discussed the management with Dr. Rios on 03/01. I agree with the History, Examination, Assessment and Plan documented above with any addition or exceptions noted below. CBD mildly dilated for post cholecystectomy, I believe. Will await GS input and then consider additional consultation.
[2019-03-01] MEDS ORDERED: Ondansetron PF 4 MG/2 ML Vial IVP PRN (13:16)
[2019-03-01] MEDS ORDERED: Ondansetron ODT 4 MG TAB PO PRN (13:17)
[2019-03-01] MEDS ORDERED: Sodium Chloride 0.9% 1,000 ML IV SCH (13:30)
[2019-03-01] MEDS ORDERED: Senokot S 8.6-50 MG TAB PO PRN (13:33)
[2019-03-01] MEDS ORDERED: Calcium Carbonate 500 MG ChewTAB PO PRN (13:33)
[2019-03-01] MEDS ORDERED: Morphine 2 MG/ML SYRINGE SLOW IVP PRN (13:33)
[2019-03-01] MEDS ORDERED: NICOTINE 2 MG BC PRN (13:56)
[2019-03-01] MEDS ORDERED: diphenhydrAMINE 50 MG CAP PO PRN (13:56)
[2019-03-01] MEDS: Morphine 4 MG/ML VIAL SLOW IVP PRN (14:21)
[2019-03-01] MEDS: Lactated Ringer's 1,000 ML IV SCH (14:28)
[2019-03-01] MEDS ORDERED: ISOVUE-370 76%-LOCM 1 ML ONE (16:29)
[2019-03-01] MEDS ORDERED: Morphine 4 MG/ML VIAL SLOW IVP SCH (17:00)
--- NOTE | 2019-03-01 18:18 | PDOC.GSPN ---
Surgery Progress Note: Subj - Subjective Narrative: 1 month out from [facility] now with severe right upper quadrant pain a/w diarrhea, CT shows colon changes in sigmoid and at hepatic flexure. Surgery Progress Note: Obj - Vital signs Vital signs: Vital Signs - Most Recent Temp Pulse Resp BP Pulse Ox 97.7 F 87 16 109/63 98 03/01/19 15:13 03/01/19 15:13 03/01/19 15:13 03/01/19 15:13 03/01/19 15:13 - Physical Exam General: no distress Cardiovascular: regular rate and rhythm Respiratory: clear to auscultation Abdomen: soft, tender (right upper quadrant with localized guarding) Surgery Progress Note: Results - Labs Result Diagrams: 03/01/19 08:31 03/01/19 08:31 Lab results: Laboratory Results - last 24 hr 03/01/19 03/01/19 03/01/19 08:31 08:31 09:37 WBC 6.2 RBC 3.83 L Hgb 12.7 Hct 39.2 MCV 102.0 H MCH 33.3 H MCHC 32.5 RDW 13.6 Plt Count 289 MPV 7.5 Neutrophils % (Manual) 36 L Band Neuts % (Manual) 1 L Lymphocytes % (Manual) 57 H Reactive Lymphs % 1 Monocytes % (Manual) 3 Eosinophils % (Manual) 2 Neutrophils # Not Reportable Lymphocytes # Not Reportable RBC Morph Comment Normal Sodium 138 Potassium 4.1 Chloride 101 Carbon Dioxide 26 Anion Gap 15 BUN 9 Creatinine 0.74 Estimated GFR (MDRD) 84 Glucose 85 Lactic Acid Calcium 8.9 Total Bilirubin 0.4 AST 25 ALT 14 Alkaline Phosphatase 79 Serum Total Protein 6.9 Albumin 4.2 Globulin 2.7 Albumin/Globulin Ratio 1.6 Lipase 55 Urine Color Urine Clarity Urine pH Ur Specific [place] 1.021 Urine Protein Urine Glucose (UA) Urine Ketones Urine Blood Urine Nitrite Urine Bilirubin Urine Urobilinogen Ur Leukocyte Esterase Urine Test Negative 03/01/19 03/01/19 09:37 11:15 WBC RBC Hgb Hct MCV MCH MCHC RDW Plt Count MPV Neutrophils % (Manual) Band Neuts % (Manual) Lymphocytes % (Manual) Reactive Lymphs % Monocytes % (Manual) Eosinophils % (Manual) Neutrophils # Lymphocytes # RBC Morph Comment Sodium Potassium Chloride Carbon Dioxide Anion Gap BUN Creatinine Estimated GFR (MDRD) Glucose Lactic Acid 2.0 Calcium Total Bilirubin AST ALT Alkaline Phosphatase Serum Total Protein Albumin Globulin Albumin/Globulin Ratio Lipase Urine Color YELLOW Urine Clarity CLEAR Urine pH 6.5 Ur Specific [place] 1.021 Urine Protein Trace Urine Glucose (UA) Negative Urine Ketones Negative Urine Blood Negative Urine Nitrite Negative Urine Bilirubin Negative Urine Urobilinogen 1.0 Ur Leukocyte Esterase Negative Urine Test Surgery Progress Note: A/P - Problem (1) Right upper quadrant pain Current Visit: Yes Code(s): R10.11 - RIGHT UPPER QUADRANT PAIN Status: Acute - Plan Plan: Question colitis, cdiff, bile leak (although no fluid on CT scan), ischemic colitis. -await cdiff -hida scan
[2019-03-01] MEDS: Acetaminophen 1,000 MG in Premix Bag 1 BAG IVPB PRN (20:44)
[2019-03-01] MEDS: carBAMazepine 200 MG TAB PO SCH (22:00)
[2019-03-01] MEDS: Nicotine 14 MG PATCH TD SCH (22:00)
[2019-03-01] MEDS: Melatonin 3 MG TAB PO PRN (22:00)
[2019-03-02] MEDS: Acetaminophen 1,000 MG in Premix Bag 1 BAG IVPB PRN ×4 (02:36→21:41)
[2019-03-02] MEDS: Morphine 4 MG/ML VIAL SLOW IVP PRN ×2 (05:22→11:53)
[2019-03-02] MEDS: Lactated Ringer's 1,000 ML IV SCH ×2 (05:24→15:16)
[2019-03-02 05:28] LABS: #Eosinphils 0.1 thou/uL (0.0-0.7); #Lymphocytes 1.6 thou/uL (1.20-3.40); #Monocytes 0.4 thou/uL (0.11-0.59); #Neutrophils 2.9 thou/uL (1.40-6.50); %Basophils 0.5 % (0.0-1.0); %Eosinophils 1.2 % (0.0-10.0); %Lymphocytes 32.1 % (21.0-51.0); %Neutrophils 58.2 % (42.0-75.0); Hemoglobin 10.5 g/dL (12.0-16.0); Mean Corpuscular HGB CONC 32.6 g/dL (32.0-36.0); Mean Corpuscular Hemoglobin 34.4 pg (27.0-31.0); Mean Platelet Volume 7.8 fL (7.4-10.4); Platelet Count 220 thou/uL (130-400); RBC Distribution Width 13.5 % (11.5-14.5); Red Blood Cell (RBC) Count 3.07 mill/uL (4.20-5.40); White Blood Cell (WBC) Count 5.1 thou/uL (4.8-10.8)
--- NOTE | 2019-03-02 08:44 | PDOC.FM ---
- Subjective Subjective: Pt complains of persistent pain, some control with morphine. No fever/chills, no cp no sob, no nausea/vomiting - Objective Vital Signs & Weight: Vital Signs (12 hours) Temp Pulse Resp BP Pulse Ox 03/02/19 07:25 97.9 F 79 20 108/58 L 95 03/02/19 02:45 98.0 F 81 18 109/56 L 96 Weight Weight 64.592 kg I&O: 03/01/19 03/02/19 03/03/19 06:59 06:59 06:59 Intake Total 1482 Balance 1482 Result Diagrams: 03/02/19 04:41 03/01/19 08:31 Phys Exam - Physical Examination Constitutional: NAD HEENT: moist MMs, sclera anicteric Neck: no JVD, supple Respiratory: no wheezing, clear to auscultation bilateral Cardiovascular: RRR, no significant murmur Gastrointestinal: soft moderate TTP on R side, mild guarding, no rebound tenderness Musculoskeletal: no edema, pulses present Neurological: normal sensation, moves all 4 limbs Psychiatric: normal affect, A&O x 3 Skin: no rash, normal turgor Dx/Plan (1) Abdominal pain Code(s): R10.9 - UNSPECIFIED ABDOMINAL PAIN Status: Acute (2) Bipolar 2 disorder Code(s): F31.81 - BIPOLAR II DISORDER Status: Acute (3) Marijuana abuse Code(s): F12.10 - CANNABIS ABUSE, UNCOMPLICATED Status: Acute (4) Tobacco abuse Code(s): Z72.0 - TOBACCO USE Status: Acute - Plan Plan: RUQ pain A- etiology unclear, possibly 2/2 bile leak vs. IBD. stool studies negative. CT concerning for IBD. General surgery consulted in ER. P- control pain with morphine -NPO -hida scan -f/u surgery recs Bipolar -home meds PTSD -home meds EtOH abuse -ASE protocol Marijuana abuse -encourage cessation. Diet: Clear liquid diet. CODE: FULL Addendum - Attending - Attending Attestation Date/Time: 03/02/19 4069 I personally evaluated the patient and discussed the management with Dr. Rios. I agree with the History, Examination, Assessment and Plan documented above with any addition or exceptions noted below. The patient was seen while getting her hida scan. Scan is consistent with bile leak. GI is being consulted.
--- NOTE | 2019-03-02 14:39 | NM ---
HEPATOBILIARY SCAN: HISTORY:Status post cholecystectomy. Right-sided abdominal pain. Rule out bile leak RADIOPHARMACEUTICAL: 4.5 mCi Technetium 99m Mebrofenin injected intravenously FINDINGS: There is normal tracer extraction by the liver with normal excretion into the biliary tracts and smal l bowel loops. Increasing tracer collection is seen in the right paracolic gutter. IMPRESSION:Findings are consistent with bile leak. Discussed over the telephone with Dr. Eric Myers at 2:33 PM
[2019-03-02 15:02] VITALS: BMI 24.4
[2019-03-02] MEDS: Diazepam 5 MG TAB PO PRN ×2 (15:12→23:19)
[2019-03-02] MEDS: carBAMazepine 200 MG TAB PO SCH ×2 (15:17→21:41)
[2019-03-02] MEDS: FLUoxetine HCl 20 MG CAP PO SCH (15:17)
--- NOTE | 2019-03-02 17:16 | PRG ---
DATE OF SERVICE: 03/02/2019 SUBJECTIVE: Ms. Anand is complaining of severe pain in right upper quadrant and occasional vomiting. Her HIDA scan shows likely bile leak. OBJECTIVE: VITAL SIGNS: She is afebrile and her vital signs are stable. ABDOMEN: Her abdomen is soft, but it is still very tender in the right upper quadrant. LABORATORY DATA: Her white blood cell count is 5. Her hemoglobin is 10. LFTs were normal on admission. ASSESSMENT AND PLAN: HIDA scan shows bile leak. I have discussed with Dr. Loyd. He is going to see her. She will need an ERCP, sphincterotomy, possible stent placement. Recommend that she sees Dr. Jean back in the office in a couple of weeks for followup. Dr. Baxter is rounding this weekend. For any issues, please call her with questions. Job ID: [id number]
[2019-03-02] MEDS: Ketorolac Tromethamine 30 MG/ML VIAL IVP PRN ×2 (17:45→23:20)
[2019-03-02] MEDS: Nicotine 14 MG PATCH TD SCH (20:52)
[2019-03-02] MEDS: Ondansetron PF 4 MG/2 ML Vial IVP PRN (21:41)
[2019-03-02] MEDS: Melatonin 3 MG TAB PO PRN (23:19)
[2019-03-03] MEDS: Lactated Ringer's 1,000 ML IV SCH ×3 (02:05→18:28)
--- NOTE | 2019-03-03 04:52 | CON ---
DATE OF CONSULTATION: 03/02/2019 REASON FOR CONSULTATION: Possible biliary leak. CONSULTING PHYSICIAN: Shashank Myers MD HISTORY OF PRESENT ILLNESS: The patient is a 48-year-old female with past medical history of irritable bowel syndrome, bipolar disorder, and PTSD, presenting with complaints of increased right upper quadrant abdominal pain. She states that approximately 4 weeks ago, she was diagnosed with acute cholecystitis and underwent laparoscopic cholecystectomy. Since that time, she has had increased right upper quadrant abdominal pain characterized as a sharp/cramping type sensation, has been constant with waxing/waning severity, would radiate to the right lower quadrant and reach a severity of 10/10. This pain was associated with increased nausea with vomiting of nonbloody emesis, subjective fevers and chills, diarrhea where she was having approximately 1 to 2 semi-solid/liquid bowel movements per day. However, during this time period, she denied any hematemesis, melena, hematochezia, dysphagia, odynophagia, or constipation. With the continued worsening of this abdominal pain, it prompted her to seek healthcare assistance and during this admission, she has undergone multiple imaging modalities, but more recently had a HIDA scan performed on March 02, 2019, that showed the presence of increasing tracer collection in the right pericolic gutter consistent with a bile leak. REVIEW OF SYSTEMS: A 10 category review of systems was obtained with all responses negative except for the pertinent positives as listed in the HPI. PAST MEDICAL HISTORY: As per HPI. PAST SURGICAL HISTORY: Laparoscopic cholecystectomy, right hip repair, left and right mandible repair as well as lumbar injections. FAMILY HISTORY: Denies any GI malignancies. SOCIAL HISTORY: Denies any current tobacco use. She currently drinks approximately 1.5 glasses of wine per night for the last month and does endorse intermittent use of marijuana. OUTPATIENT MEDICATIONS: Reviewed. ALLERGIES: NO KNOWN DRUG ALLERGIES. PHYSICAL EXAMINATION: VITAL SIGNS: Temperature 98.2, pulse 78, blood pressure 119/70, respiratory rate 20, and saturating 100% on room air. GENERAL: The patient was lying in bed, in mild distress. Alert and oriented x4, but holding her right side in noticeable pain. HEENT: Normocephalic and atraumatic. NECK: Supple. No JVD or scleral icterus noted. CARDIOVASCULAR: Regular rate and rhythm with no discernible murmurs, gallops, or rubs. RESPIRATORY: Clear to auscultation bilaterally with no discernible wheezes or rales. ABDOMEN: Hypoactive bowel sounds. Soft, nondistended. Tenderness to palpation in all abdominal quadrants, but most especially the right upper quadrant. EXTREMITIES: No cyanosis, clubbing, or edema. LABORATORY DATA: CBC with a white blood cell count of 5.1, hemoglobin 10.5, hematocrit 32.3, and glucose 220. Chemistry with a sodium of 138, potassium 4.1, chloride 101, CO2 of 26, BUN 9, creatinine 0.74, glucose 85, AST 25, ALT 14, alkaline phosphatase 79, total bilirubin 0.4, and lipase 55. IMAGING DATA: CT of the abdomen and pelvis obtained on March 01, 2019 showed reservoir effect from the prior cholecystectomy, but no fluid collection within the gallbladder fossa, abnormal hyperenhancement of the sigmoid and descending colons were also noted; it could have been due to lack of colonic distention. A right upper quadrant ultrasound was also obtained on March 01, 2019 which showed again surgical change consistent with cholecystectomy, but did not see any ascites with the common bile duct measuring approximately 1.1 cm consistent with reservoir fact; however, she had a HIDA scan obtained on March 02, 2019, which showed normal tracer extraction by the liver and normal excretion into the biliary tract, but increasing tracer collection in the right pericolic gutter consistent with a bile leak. ASSESSMENT AND PLAN: The patient is a 48-year-old female with past medical history of irritable bowel syndrome, bipolar disorder, posttraumatic stress syndrome, and acute cholecystitis with cholelithiasis status post laparoscopic cholecystectomy, now presenting with increased right upper quadrant abdominal pain and imaging consistent with a biliary leak. The patient is presenting with a 4-week history of increased right upper quadrant abdominal pain characterized as a sharp/cramping type sensation, was constant, would radiate to the right lower quadrant and reach a severity of 10/10. This pain occurred in relation to her laparoscopic cholecystectomy that was performed on January 27, 2019. Imaging during this admission was essentially negative up until obtaining a HIDA scan, which was then positive for a biliary leak. At this time, the most likely reason for her abdominal pain would be the drainage of bile acid within the abdominal cavity and right pericolic gutter, and further contributing to her pain. She would benefit from ERCP with biliary stent placement in an attempt to provide a path of least resistance, so that the site of leak could heal itself. RECOMMENDATIONS: 1. Would keep the patient n.p.o. with plans for ERCP in the morning with placement of biliary stent to allow for healing of the biliary leak. 2. Pain control per primary team. 3. Would consider placing the patient on either a withdrawal protocol or begin more frequent administration of Valium given the possibility of benzodiazepine withdrawal. 4. We will continue to trend LFTs daily in light of her biliary leak. Further recommendations to follow ERCP tomorrow. Please call with any questions again. Job ID: [id number]
[2019-03-03] MEDS: Ketorolac Tromethamine 30 MG/ML VIAL IVP PRN ×3 (05:53→21:36)
[2019-03-03] MEDS: Acetaminophen 1,000 MG in Premix Bag 1 BAG IVPB PRN ×3 (05:54→19:25)
[2019-03-03] MEDS ORDERED: Iothalamate Meglumine 60% 50 ML VIAL FS ONE (07:43)
[2019-03-03] MEDS ORDERED: Indomethacin 50 MG SUPP ONE (07:47)
--- NOTE | 2019-03-03 07:57 | PDOC.FM ---
- Subjective Subjective: Pt reports controlled but persistent pain, no new complaints at this time. Anticipates ERCP - Objective Vital Signs & Weight: Vital Signs (12 hours) Temp Pulse Resp BP Pulse Ox 03/03/19 07:33 97.8 F 74 16 106/73 99 03/03/19 03:52 98 F 73 20 106/72 99 03/02/19 23:21 98.2 F 78 20 119/70 100 Weight Admit Weight 63.412 kg Weight 64.592 kg I&O: 03/02/19 03/03/19 03/04/19 06:59 06:59 06:59 Intake Total 1482 2940 Balance 1482 2940 Result Diagrams: 03/02/19 04:41 03/01/19 08:31 Phys Exam - Physical Examination Constitutional: NAD HEENT: moist MMs, sclera anicteric Neck: supple, full ROM Respiratory: no wheezing, clear to auscultation bilateral Cardiovascular: RRR, no significant murmur Gastrointestinal: soft RLQ and RUQ ttp Musculoskeletal: no edema, pulses present Neurological: normal sensation, moves all 4 limbs Psychiatric: normal affect, A&O x 3 Skin: no rash, normal turgor Dx/Plan (1) Abdominal pain Code(s): R10.9 - UNSPECIFIED ABDOMINAL PAIN Status: Acute (2) Bipolar 2 disorder Code(s): F31.81 - BIPOLAR II DISORDER Status: Acute (3) Marijuana abuse Code(s): F12.10 - CANNABIS ABUSE, UNCOMPLICATED Status: Acute (4) Tobacco abuse Code(s): Z72.0 - TOBACCO USE Status: Acute - Plan Plan: RUQ pain 2/2 bile leak A- HIDA scan shows bile leak, GI consulted. Surg on board. appreciate recommendations. P- Pt to go for ERCP today -control pain with morphine -NPO -f/u surgery and GI recs Bipolar -home meds PTSD -home meds EtOH abuse -ASE protocol Marijuana abuse -encourage cessation. Diet: Clear liquid diet. CODE: FULL Addendum - Attending - Attending Attestation Date/Time: 03/03/19 1047 I personally evaluated the patient and discussed the management with Dr. Rios. I agree with the History, Examination, Assessment and Plan documented above with any addition or exceptions noted below. The patient was found to have a bile leak on HIDA scan. Plan for ERCP today with GI.
[2019-03-03] MEDS ORDERED: Indomethacin 50 MG SUPP PR ONE (09:00)
[2019-03-03] MEDS: carBAMazepine 200 MG TAB PO SCH ×2 (09:33→21:36)
[2019-03-03] MEDS: FLUoxetine HCl 20 MG CAP PO SCH (09:33)
[2019-03-03] MEDS ORDERED: Morphine 4 MG/ML VIAL ONE (09:45)
[2019-03-03] MEDS ORDERED: Midazolam HCl 2 mg/2 ml Vial ONE (09:59)
[2019-03-03] MEDS ORDERED: Fentanyl 100 MCG/2 ML VIAL ONE ×2 (09:59→11:15)
[2019-03-03] MEDS ORDERED: Glycopyrrolate 0.2 MG/ML 5 ML SYRINGE ONE (10:07)
[2019-03-03] MEDS ORDERED: Lidocaine 1% PF 5 ML VIAL ONE (10:07)
[2019-03-03] MEDS ORDERED: PROPOFOL 200 MG/20 ML VIAL ONE (10:07)
[2019-03-03] MEDS ORDERED: Rocuronium Bromide 10 MG/ML (10ML VIAL) ONE (10:07)
[2019-03-03] MEDS ORDERED: Ondansetron PF 4 MG/2 ML Vial ONE (10:07)
[2019-03-03] MEDS ORDERED: Promethazine HCl 25 MG/ML VIAL IM PRN (10:36)
[2019-03-03] MEDS ORDERED: PACU-Morphine 4MG/ML VIAL SLOW IVP PRN (10:36)
[2019-03-03] MEDS ORDERED: HYDROmorphone 2 MG/ML VIAL SLOW IVP PRN (10:36)
[2019-03-03] MEDS ORDERED: Ondansetron HCl/PF 4 MG/2 ML Vial IVP PRN (10:36)
[2019-03-03] MEDS ORDERED: Promethazine HCl 25 MG/ML VIAL SLOW IVP PRN (10:36)
--- NOTE | 2019-03-03 11:24 | RAD ---
ERCP: HISTORY: Bile leak. FINDINGS/IMPRESSION: Two spot fluoroscopic intraoperative images of the right upper quadrant during an ERP demonstrate opa cification of the common bile duct and some hepatic duct in the branches without filling defects. A biliary stent has been placed. POS: [facility]
--- NOTE | 2019-03-03 13:01 | OP ---
DATE OF PROCEDURE: 03/03/2019 PROCEDURES PERFORMED: 1. Endoscopic retrograde cholangiopancreatography with sphincterotomy. 2. Biliary stent placement. 3. Biopsy. INDICATIONS FOR PROCEDURE: Biliary leak status post laparoscopic cholecystectomy, right upper quadrant abdominal pain. DESCRIPTION OF PROCEDURE: After the risks and benefits of the procedure were explained to the patient including risks of bleeding, infection, perforation, reactions to anesthesia, aspiration, post-ERCP pancreatitis, and/or pain, informed consent was obtained. The patient was then taken to the endoscopy suite, where general anesthesia was administered with endotracheal tube intubation via Anesthesia support. Once the patient was intubated and sedated, she was maneuvered into the prone position in anticipation for the ERCP. Once in appropriate position, the standard duodenoscope was introduced into the mouth with intubation of the esophagus, stomach, and the proximal small intestines with the findings listed below. The patient tolerated the procedure well with no immediate perioperative complications. Upon conclusion of the procedure, all equipment was removed from the patient and she was transferred to PACU in satisfactory condition. FINDINGS: EGD Findings: Normal-appearing mucosa was seen in the proximal, mid, and distal esophagus. Normal-appearing mucosa was also seen in the gastric cardia, fundus, body, and incisura; however, a 2- to 3-mm clean-based ulceration was seen in the prepyloric region in the antrum without any high-risk stigmata of bleeding. Multiple biopsies were taken of this ulceration, placed in a specimen jar for evaluation. Otherwise, there was no additional ulceration nor was there any evidence of mass, lesions, or active/recent bleeding. Within the duodenal bulb, there was mild to moderately increased mucosal erythema, but did not exhibit any other underlying pathology including ulcerations or mass lesions. The 2nd portion of the duodenum was normal. ERCP findings: The ampulla was easily identified within the 2nd portion of the duodenum with evidence of prior sphincterotomy seen with scar tissue to the superior aspect of the ampulla itself. The ampulla was then easily cannulated with a guidewire placed within the common bile duct in the intrahepatic tree. A cholangiogram was then performed with dilation of both the common bile duct and intrahepatic tree with the common bile duct measuring approximately 1 cm in size; however, with this cholangiogram, there was no evidence of a biliary leak or extravasation of contrast into the surrounding tissues that we observed. Given her history of the biliary leak seen on the HIDA scan, a small extension of the sphincterotomy was then performed using a 5-mm sphincterotome. Once this was achieved, the sphincterotome was then removed over the guidewire using exchange technique with the placement 11.5-[place] biliary stent, then placed into the common bile duct with bilious drainage at the end of the procedure. Final cholangiogram showed good drainage of the common bile duct with repeat fluoroscopy, at which point the procedure was terminated. IMPRESSION: 1. No evidence of biliary leak on cholangiogram today; however, given the positive HIDA scan, 11.5-[place] biliary stent was placed. 2. A 2- to 3-mm small clean-based ulceration in the pre-pyloric region status post biopsies. 3. [id number] duodenitis. RECOMMENDATIONS: 1. We will follow up on the biopsy results for possible H pylori versus NSAID-gastritis that could be potentially contributing to duodenitis as well. 2. We will continue to monitor the patient for any postoperative complications including post-ERCP pancreatitis. 3. We will continue to trend the patient's LFTs daily for response to treatment as well as monitor the patient clinically as her pain should subside over the next few days. 4. The patient will need a repeat either ERCP or EGD in approximately 3 months for removal of the plastic biliary stent. We will continue to follow. Please call with any questions. Job ID: [id number]
[2019-03-03] MEDS: Diazepam 5 MG TAB PO PRN (16:01)
[2019-03-03] MEDS: Morphine 4 MG/ML VIAL SLOW IVP PRN (17:16)
[2019-03-03] MEDS ORDERED: HYDROmorphone 2 MG TAB PO SCH (18:00)
--- NOTE | 2019-03-03 19:37 | RAD ---
TWO VIEW ABDOMEN: 03/03/19 Supine and left lateral decubitus views of abdomen obtained. INDICATIONS: Abdominal pain. Post ERCP. Scattered small bowel gas. There is gaseous distention of the colon. Evide nce of biliary stent and cholecystectomy clips noted. No evidence of free intraperitoneal air identif ied. IMPRESSION: No evidence of free intraperitoneal air. POS: [facility]
[2019-03-03] MEDS ORDERED: diphenhydrAMINE 50 MG/ML VIAL IVP SCH (20:15)
[2019-03-03] MEDS ORDERED: Morphine 4 MG/ML VIAL SLOW IVP SCH (20:15)
[2019-03-03] MEDS: Melatonin 3 MG TAB PO PRN (21:36)
[2019-03-03] MEDS: Nicotine 14 MG PATCH TD SCH (21:47)
[2019-03-04] MEDS: Diazepam 5 MG TAB PO PRN ×3 (00:23→21:28)
[2019-03-04] MEDS: Lactated Ringer's 1,000 ML IV SCH ×5 (00:24→20:06)
[2019-03-04] MEDS: Ketorolac Tromethamine 30 MG/ML VIAL IVP PRN ×4 (03:08→23:00)
[2019-03-04] MEDS: Morphine 4 MG/ML VIAL SLOW IVP PRN ×4 (05:50→20:10)
--- NOTE | 2019-03-04 07:41 | PDOC.FM ---
- Subjective Subjective: Pt had increased pain yesterday following ERCP but it has since resolved, abd xray was done and wnl. pt reports pain is improved today but only improved to what it was on admission. no fever/chills, no new complaints - Objective Vital Signs & Weight: Vital Signs (12 hours) Temp Pulse Resp BP Pulse Ox 03/04/19 03:50 97.8 F 84 16 98/59 L 98 03/03/19 23:52 98.8 F 90 16 97/58 L 98 03/03/19 20:00 98.7 F 115 H 20 148/85 H 98 Weight Admit Weight 63.412 kg Weight 64.592 kg I&O: 03/03/19 03/04/19 03/05/19 06:59 06:59 06:59 Intake Total 2940 1300 1800 Balance 2940 1300 1800 Result Diagrams: 03/02/19 04:41 03/04/19 07:06 Phys Exam - Physical Examination mild distress 2/2 pain HEENT: moist MMs, sclera anicteric Neck: no JVD, supple Respiratory: no wheezing, clear to auscultation bilateral Cardiovascular: RRR, no significant murmur Gastrointestinal: soft moderate ttp on R side, no guarding, no rebound tenderness Musculoskeletal: no edema, pulses present Neurological: normal sensation, moves all 4 limbs Psychiatric: normal affect, A&O x 3 Skin: no rash, normal turgor Dx/Plan (1) Abdominal pain Code(s): R10.9 - UNSPECIFIED ABDOMINAL PAIN Status: Acute (2) Bipolar 2 disorder Code(s): F31.81 - BIPOLAR II DISORDER Status: Acute (3) Marijuana abuse Code(s): F12.10 - CANNABIS ABUSE, UNCOMPLICATED Status: Acute (4) Tobacco abuse Code(s): Z72.0 - TOBACCO USE Status: Acute - Plan Plan: RUQ pain 2/2 bile leak A- HIDA scan shows bile leak, GI consulted. Surg on board. appreciate recommendations. Pt now s/p ERCP, GI recommends f/u EGD/ERCP in 3 months P-control pain with morphine, will try to wean to plan for DC -f/u surgery and GI recs Bipolar -home meds PTSD -home meds EtOH abuse -ASE protocol Marijuana abuse -encourage cessation. CODE: FULL Addendum - Attending - Attending Attestation Date/Time: 03/04/19 0952 I personally evaluated the patient and discussed the management with Dr. Rios. I agree with the History, Examination, Assessment and Plan documented above with any addition or exceptions noted below. Pt tells me she still has abdominal pain. Has been using a heating pad. Her abdomen is soft, tender to palpation without rebound or guarding. Abd XR overnight showed no free air. She is hypokalemic. Will replace potassium. F/ u with GI recs.
[2019-03-04 07:50] LABS: ALT (SGPT) 15 U/L (8-55); AST (SGOT) 25 U/L (5-34); Albumin 2.9 g/dL (3.5-5.0); Alkaline Phosphatase 78 U/L (40-150); Anion Gap 9 mmol/L (10-20); BUN (Urea Nitrogen) 4 mg/dL (7.0-18.7); Bilirubin, Total 0.4 mg/dL (0.2-1.2); Calc. Creatinine Clearance 136 mL/min (70-130); Calcium 8.1 mg/dL (7.8-10.44); Carbon Dioxide 28 mmol/L (22-29); Chloride 106 mmol/L (98-107); Estimated GFR-MDRD Greater than 90; Globulin 1.9 g/dL (2.4-3.5); Glucose 80 mg/dL (70-105); Protein, Total 4.8 g/dL (6.0-8.3); Sodium 140 mmol/L (136-145)
[2019-03-04 07:57] LABS: Potassium 2.9 mmol/L (3.5-5.1)
[2019-03-04] MEDS: FLUoxetine HCl 20 MG CAP PO SCH (09:10)
[2019-03-04] MEDS: carBAMazepine 200 MG TAB PO SCH ×2 (09:11→21:28)
[2019-03-04] MEDS ORDERED: Potassium Chloride 20 MEQ TAB PO SCH ×2 (09:15→15:00)
--- NOTE | 2019-03-04 20:04 | PRG ---
DATE OF SERVICE: 03/04/2019 REASON FOR CONSULTATION: Possible biliary leak. SUBJECTIVE: The patient underwent ERCP yesterday on March 03, 2019, and in the postoperative period, experienced acute worsening of her right upper quadrant abdominal pain concerning for post ERCP pancreatitis and/or perforation. A KUB was obtained at that time, which did not show any evidence of free air consistent with perforation, and laboratory testing showed a lipase of 47, making post ERCP pancreatitis less likely. Today, she states that her pain is improved from yesterday, but she is still in significant pain, that causes her to be tearful during examination. She states that the pain medications that have been given to her thus far have been ineffective and that she requires something stronger stating "could you just double up on the medications I'm getting." Otherwise, she denies any vomiting, fevers, chills, diarrhea, constipation, or GI bleeding. OBJECTIVE: VITAL SIGNS: Temperature 98.7, pulse 87, blood pressure 117/70, respiratory rate 18, saturating 95% on room air. GENERAL: The patient is lying in bed, in moderate distress, but alert and oriented x4. CARDIOVASCULAR: Regular rate and rhythm. RESPIRATORY: Clear to auscultation bilaterally. ABDOMEN: Normoactive bowel sounds. Soft, nondistended. Tenderness to palpation in the midepigastric and right upper quadrant. EXTREMITIES: No cyanosis, clubbing, or edema. LABORATORY DATA: Chemistry with a sodium of 140, potassium 2.9, chloride 106, CO2 of 28, BUN 4, creatinine 0.52, glucose 80, AST 25, ALT 15, alkaline phosphatase 78, total bilirubin 0.4, lipase 47. IMAGING DATA: The patient underwent ERCP on March 03, 2019, with findings of a 2- to 3-mm clean-based ulceration seen in the prepyloric region in the gastric antrum without any other high-risk stigmata bleeding and did have some surrounding erythema and mild edema, but no other abnormalities. Biopsies were taken from this region and placed in a specimen jar for evaluation. During the ERCP portion of the exam, the ampulla was easily identified in the second portion of the duodenum with the ampulla easily cannulated. Cholangiogram performed at that time did not show any evidence of biliary leak or extravasation of contrast into the surrounding tissues. However, given the biliary leak seen on the HIDA scan, a 6 cm, 11.5-[place] biliary stent was placed in the common bile duct with bilious drainage at the end of the procedure. ASSESSMENT AND PLAN: The patient is a 48-year-old female with past medical history of irritable bowel syndrome, bipolar disorder, posttraumatic stress syndrome, and acute cholecystitis, status post laparoscopic cholecystectomy, presenting with right upper quadrant abdominal pain and imaging consistent with biliary leak. 1. Biliary leak. The patient initially presented with a 4-week history of increased right upper quadrant abdominal pain, that had been present since her laparoscopic cholecystectomy on January 27, 2019. She had a right upper quadrant and CT scan during this admission, which were essentially negative for any postoperative abnormalities. However, she did have a HIDA scan during this admission, which was then positive for extravasation of nuclear tracer into the right paracolic gutter consistent with a biliary leak. She subsequently underwent ERCP on March 03, 2019, with the placement of a 6 cm, 11.5-[place] biliary stent in order to facilitate drainage of the biliary tree. However, in the post ERCP period, she experienced increased worsening of her right upper quadrant abdominal pain concerning for post ERCP pancreatitis and/or perforation, that was then ruled out via free air on KUB and had normal lipase in the postoperative period. At this time, she is presenting with significant right upper quadrant abdominal pain, that is unchanged when compared to what she was experiencing on this prior to admission, making the diagnosis of biliary leak in question. At this point, the differential could include biliary leak with extravasation of bile into the peritoneal cavity. ERCP complication (less likely) IBS and/or pancreatitis (less likely given normal lipase). Recommendations;. a. Would essentially treat this as a possible post ERCP pancreatitis, given the nature of the pain and worsening of the pain after ERCP by keeping the patient n.p.o. and continuation of IV fluids at approximately 150 mL/hr. b. Pain control per primary team. c. Would continue to trend LFTs and possibly lipase in light of her increased abdominal pain in the post ERCP. d. Would consider CT of the abdomen and pelvis if the patient's abdominal pain does not continue to improve. We will continue to follow. Please call with any questions. Job ID: [id number]
[2019-03-04] MEDS: Nicotine 14 MG PATCH TD SCH (20:06)
[2019-03-04] MEDS: Melatonin 3 MG TAB PO PRN (21:27)
[2019-03-04] MEDS: Acetaminophen 500 MG TAB PO SCH (23:00)
[2019-03-05] MEDS: Lactated Ringer's 1,000 ML IV SCH ×4 (04:51→23:56)
[2019-03-05] MEDS: Acetaminophen 500 MG TAB PO SCH ×4 (05:01→23:54)
[2019-03-05] MEDS: Ketorolac Tromethamine 30 MG/ML VIAL IVP PRN ×4 (05:01→23:54)
[2019-03-05 05:21] LABS: ALT (SGPT) 13 U/L (8-55); AST (SGOT) 19 U/L (5-34); Albumin 2.8 g/dL (3.5-5.0); Alkaline Phosphatase 111 U/L (40-150); Anion Gap 12 mmol/L (10-20); BUN (Urea Nitrogen) 4 mg/dL (7.0-18.7); Bilirubin, Total 0.4 mg/dL (0.2-1.2); Calc. Creatinine Clearance 142 mL/min (70-130); Carbon Dioxide 23 mmol/L (22-29); Chloride 105 mmol/L (98-107); Estimated GFR-MDRD Greater than 90; Glucose 63 mg/dL (70-105); Potassium 3.7 mmol/L (3.5-5.1); Protein, Total 4.8 g/dL (6.0-8.3); Sodium 136 mmol/L (136-145)
--- NOTE | 2019-03-05 06:49 | PDOC.FM ---
- Subjective Subjective: Patient reports her abdominal pain has improved. States her pain is teddy- umbilical and mid-epigastric. She has been able to ambulate, states that she has had flatus which has helped her pain along with a good bowel movement. - Objective Vital Signs & Weight: Vital Signs (12 hours) Temp Pulse Resp BP Pulse Ox 03/05/19 04:00 98.2 F 80 20 110/72 97 03/05/19 00:00 98.9 F 95 20 112/67 95 03/04/19 20:00 98.9 F 94 20 118/79 99 Weight Admit Weight 63.412 kg Weight 64.592 kg I&O: 03/03/19 03/04/19 03/05/19 06:59 06:59 06:59 Intake Total 2940 1300 5400 Balance 2940 1300 5400 Result Diagrams: 03/02/19 04:41 03/05/19 04:30 Phys Exam - Physical Examination Constitutional: NAD HEENT: moist MMs Neck: no nodes, supple Respiratory: no wheezing, clear to auscultation bilateral Cardiovascular: RRR, no significant murmur Gastrointestinal: soft, positive bowel sounds Tender in mid-epigastrium to palpation, report rebound pain, guarding with deep palpation Musculoskeletal: no edema, pulses present Neurological: non-focal, moves all 4 limbs Skin: no rash, normal turgor, cap refill <2 seconds Dx/Plan (1) Pancreatitis Code(s): K85.90 - ACUTE PANCREATITIS WITHOUT NECROSIS OR INFECTION, UNSP Status: Acute (2) Abdominal pain Code(s): R10.9 - UNSPECIFIED ABDOMINAL PAIN Status: Acute (3) Right upper quadrant pain Code(s): R10.11 - RIGHT UPPER QUADRANT PAIN Status: Acute (4) Alcohol abuse Code(s): F10.10 - ALCOHOL ABUSE, UNCOMPLICATED Status: Acute (5) Bipolar 2 disorder Code(s): F31.81 - BIPOLAR II DISORDER Status: Chronic (6) Marijuana abuse Code(s): F12.10 - CANNABIS ABUSE, UNCOMPLICATED Status: Acute (7) PTSD (post-traumatic stress disorder) Code(s): F43.10 - POST-TRAUMATIC STRESS DISORDER, UNSPECIFIED Status: Chronic - Plan Plan: Post ERCP Pancreatitis -Dr. Loyd following, appreciate GI recommendations -NPO, LR @ 150 ml/hr. Advance diet once pain is resolved -Lipase 47 -trend LFTs -consider CT abdomen if pain worsens -Continue pain control with toradol and tylenol RUQ pain 2/2 bile leak - HIDA scan showed bile leak, GI consulted. Surg on board. appreciate recommendations. Pt now s/p ERCP 03/03, GI recommends f/u EGD/ERCP in 3 months Bipolar -home meds PTSD -home meds EtOH abuse -ASE protocol Marijuana abuse -encourage cessation. CODE: FULL PCP: Louis Smith - Attending - Attending Attestation Date/Time: 03/05/19 1548 I personally evaluated the patient and discussed the management with Dr. Metcalf I agree with the History, Examination, Assessment and Plan documented above with any addition or exceptions noted below. Patient with BM and c/o hunger will advance diet as tolerated. Patient with anticipation of scheduled pain medication. Recommend advance diet and activity continue expectant management. Patients questions answered and she is aware of care plan. Appreciate GI recommendations.
[2019-03-05] MEDS: FLUoxetine HCl 20 MG CAP PO SCH (08:14)
[2019-03-05] MEDS: carBAMazepine 200 MG TAB PO SCH ×2 (08:14→20:24)
[2019-03-05] MEDS: Diazepam 5 MG TAB PO PRN ×2 (11:03→20:23)
[2019-03-05] MEDS: Morphine 4 MG/ML VIAL SLOW IVP PRN ×3 (12:46→21:06)
--- NOTE | 2019-03-05 13:23 | PRG ---
DATE OF SERVICE: 03/05/2019 SUBJECTIVE: Ms. Anand is complaining of continued right upper quadrant pain. She says it is about the same as yesterday. She has passed flatus and small amount of stool. There has been no vomiting. She has been n.p.o. over the past day. She remains tearful and is requesting more pain medications. She has remained hemodynamically stable. OBJECTIVE: VITAL SIGNS: Temperature 97.9, pulse 82, blood pressure 118/75, and 97% oxygen saturation on room air. GENERAL: Tearful, mild distress from right upper quadrant pain. HEART: Regular rate and rhythm. LUNGS: Clear to auscultation bilaterally. ABDOMEN: Bowel sounds are present. The abdomen is soft. Tender to palpation in the right upper quadrant, but no tenderness elsewhere in the abdomen. No guarding or rebound tenderness. EXTREMITIES: No peripheral edema. LABORATORY STUDIES: Sodium 136, potassium 3.7, BUN 4, creatinine 0.50. LFTs all remain normal with total bilirubin of 0.4, alkaline phosphatase 111, AST 19, ALT 13, and albumin 2.8. Lipase was 47 on 03/03/2019. ASSESSMENT AND PLAN: 1. Right upper quadrant pain, secondary to postoperative bile leak. The patient is now status post repeat endoscopic retrograde cholangiopancreatography with extension of sphincterotomy and biliary stent placement 2 days ago on 03/03/2019, performed by Dr. oLyd with continued normal LFTs following the procedure, conclude stent is draining appropriately. I actually doubt that the patient's continued pain represents post endoscopic retrograde cholangiopancreatography pancreatitis as this is the same pain that she came in with. For now, we would continue with the IV fluid and supportive care. We would keep her n.p.o. for today. If there is no continued improvement tomorrow, I would consider repeating CT imaging of the abdomen. 2. I discussed with the patient that unfortunately pain after a bile leak can take quite a long time to resolve or may even become chronic. We will have to see how she does with this, as long as the pain is not worsening. 3. Gastric ulcer. There was a small gastric ulcer in the antrum seen by Dr. Loyd on recent endoscopic retrograde cholangiopancreatography. We will start her on Protonix 40 mg b.i.d. 4. The patient will need repeat esophagogastroduodenoscopy or endoscopic retrograde cholangiopancreatography for stent removal in about 3 months. We will follow her up as an outpatient in the meantime. Job ID: [id number]
[2019-03-05] MEDS: Ondansetron PF 4 MG/2 ML Vial IVP PRN (16:56)
[2019-03-05] MEDS: Nicotine 14 MG PATCH TD SCH (20:24)
[2019-03-05] MEDS: Melatonin 3 MG TAB PO PRN (23:54)
[2019-03-06] MEDS: Ondansetron PF 4 MG/2 ML Vial IVP PRN (00:36)
[2019-03-06] MEDS: Morphine 4 MG/ML VIAL SLOW IVP PRN (04:13)
[2019-03-06] MEDS: Lactated Ringer's 1,000 ML IV SCH (04:16)
[2019-03-06] MEDS: Ketorolac Tromethamine 30 MG/ML VIAL IVP PRN (05:48)
[2019-03-06] MEDS: Acetaminophen 500 MG TAB PO SCH (05:49)
[2019-03-06 05:56] LABS: ALT (SGPT) 13 U/L (8-55); AST (SGOT) 21 U/L (5-34); Albumin 2.9 g/dL (3.5-5.0); Alkaline Phosphatase 120 U/L (40-150); Anion Gap 16 mmol/L (10-20); BUN (Urea Nitrogen) Less than 4 mg/dL (7.0-18.7); Bilirubin, Total 0.3 mg/dL (0.2-1.2); Calc. Creatinine Clearance 142 mL/min (70-130); Calcium 8.4 mg/dL (7.8-10.44); Carbon Dioxide 18 mmol/L (22-29); Chloride 108 mmol/L (98-107); Estimated GFR-MDRD Greater than 90; Globulin 2.3 g/dL (2.4-3.5); Potassium 4.1 mmol/L (3.5-5.1); Protein, Total 5.2 g/dL (6.0-8.3); Sodium 138 mmol/L (136-145)
[2019-03-06 05:58] LABS: Glucose 46 mg/dL (70-105)
[2019-03-06] MEDS ORDERED: Dextrose 5%-Lactated Ringers 1,000 ML IV SCH (06:15)
--- NOTE | 2019-03-06 06:27 | PDOC.FM ---
- Subjective Subjective: Patient reports her pain is much better this AM. States that she had a BM and is voiding well. She is hungry and wanting to try eating this morning. Discussed starting a diet slowly and monitoring her pain. - Objective Vital Signs & Weight: Vital Signs (12 hours) Temp Pulse Resp BP Pulse Ox 03/06/19 04:00 97.7 F 75 18 133/79 96 03/06/19 00:10 97.9 F 71 18 116/80 96 03/05/19 20:00 98.1 F 85 16 120/79 95 Weight Admit Weight 63.412 kg Weight 64.592 kg I&O: 03/04/19 03/05/19 03/06/19 06:59 06:59 06:59 Intake Total 1300 5400 1800 Balance 1300 5400 1800 Result Diagrams: 03/02/19 04:41 03/06/19 04:29 Phys Exam - Physical Examination Constitutional: NAD Respiratory: no wheezing, no rales, no rhonchi, clear to auscultation bilateral Cardiovascular: RRR, no significant murmur Gastrointestinal: soft, no distention, positive bowel sounds RUQ minimally tender to palpation. Guarding, no rebound Musculoskeletal: no edema, pulses present Neurological: non-focal, moves all 4 limbs Psychiatric: normal affect Skin: no rash, normal turgor Dx/Plan (1) Pancreatitis Code(s): K85.90 - ACUTE PANCREATITIS WITHOUT NECROSIS OR INFECTION, UNSP Status: Acute (2) Abdominal pain Code(s): R10.9 - UNSPECIFIED ABDOMINAL PAIN Status: Acute (3) Right upper quadrant pain Code(s): R10.11 - RIGHT UPPER QUADRANT PAIN Status: Acute (4) Alcohol abuse Code(s): F10.10 - ALCOHOL ABUSE, UNCOMPLICATED Status: Acute (5) Bipolar 2 disorder Code(s): F31.81 - BIPOLAR II DISORDER Status: Chronic (6) Marijuana abuse Code(s): F12.10 - CANNABIS ABUSE, UNCOMPLICATED Status: Acute (7) PTSD (post-traumatic stress disorder) Code(s): F43.10 - POST-TRAUMATIC STRESS DISORDER, UNSPECIFIED Status: Chronic - Plan Plan: Post ERCP Pancreatitis -Voiding and stooling well. Abd pain improved this AM. -Dr. Loyd following, appreciate GI recommendations -NPO, LR @ 150 ml/hr. Advance diet once pain is resolved. Attempt clear liquids this AM. If patient tolerates diet may decrease fluids later today. -Lipase 47 -trend LFTs, stable at this time -CT abdomen if pain worsens. This AM her pain appears improved. -Continue pain control with toradol and tylenol. -Wean morphine as tolerated. RUQ pain 2/2 bile leak - HIDA scan showed bile leak, GI consulted. Surg on board. appreciate recommendations. Pt now s/p ERCP 03/03, GI recommends f/u EGD/ERCP in 3 months Gastric ulcer -Protonix 40 BID Bipolar -home meds PTSD -home meds EtOH abuse -ASE protocol Marijuana abuse -encourage cessation. CODE: FULL PCP: Louis Addendum - Attending - Attending Attestation Date/Time: 03/06/19 1030 I personally evaluated the patient and discussed the management with Dr. Juan Metcalf I agree with the History, Examination, Assessment and Plan documented above with any addition or exceptions noted below. Patient is feeling better this AM she is awre that she will have some component of pain. She is ambulating and taking po will advance diet transition to po pain medication in anticipation of D/C unless condition fails to continue to improve. Appreciate recommendations of general surgery and GI.
[2019-03-06] MEDS: FLUoxetine HCl 20 MG CAP PO SCH (08:01)
[2019-03-06] MEDS: carBAMazepine 200 MG TAB PO SCH ×2 (08:01→20:37)
[2019-03-06] MEDS: traMADol HCl 50 MG TAB PO SCH ×3 (09:03→20:39)
[2019-03-06] MEDS: Diazepam 5 MG TAB PO PRN ×2 (11:25→20:37)
[2019-03-06] MEDS: HYDROcodone/Acetaminophen 5/325 mg Tablet PO PRN ×2 (11:25→17:38)
[2019-03-06] MEDS: Acetaminophen 325 MG TAB PO SCH ×3 (12:00→23:37)
[2019-03-06] MEDS ORDERED: Acetaminophen 500 MG TAB PO SCH (12:00)
[2019-03-06] MEDS: Ibuprofen 800 MG TAB PO SCH ×2 (14:44→22:20)
[2019-03-06] MEDS: Nicotine 14 MG PATCH TD SCH (20:36)
--- NOTE | 2019-03-06 21:17 | PRG ---
DATE OF SERVICE: 03/06/2019 SUBJECTIVE: Ms. Anand says she is doing a lot better today than yesterday. She is still having occasional spasms and significant right upper quadrant pain, but she has been able to get good rest today. She has passed normal bowel movements. She has not had any vomiting or significant nausea. She has been able to advance to a full liquid diet for lunch, though she is not really hungry for dinner. Labs all remain unremarkable. She has been able to transition to oral pain medications. PHYSICAL EXAMINATION: VITAL SIGNS: Temperature 97.7, blood pressure 116/74, pulse 69, and 97% oxygen saturation on room air. GENERAL: No acute distress. HEART: Regular rate and rhythm. LUNGS: Clear to auscultation bilaterally. ABDOMEN: Bowel sounds are present. Soft. Tenderness to palpation in right upper quadrant, but no guarding or rebound tenderness. No tenderness elsewhere. EXTREMITIES: No peripheral edema. LABORATORY DATA: Sodium 138, potassium 4.1, BUN less than 4, creatinine 0.50, glucose 158, total bilirubin 0.3, alkaline phosphatase 120, AST 21, ALT 13. ASSESSMENT AND PLAN: 1. Postoperative bile leak, status post successful endoscopic retrograde cholangiopancreatography with extension sphincterotomy and biliary stent placement 3 days ago on 03/03/2019. She continues to have normal LFTs following the procedure. The stent should be draining appropriately. No evidence of post endoscopic retrograde cholangiopancreatography pancreatitis. 2. Right upper quadrant pain, again discussed with the patient that we can expect gradual improvement, but this may be quite slow. She has had significant improvement over the past day. Continue to advance diet as tolerated. Try to wean off pain medications. Nothing further from a GI standpoint at this time. 3. We will still plan to repeat upper endoscopy for stent removal in about 3 months. We will follow her up as an outpatient in the meantime. 4. Please call back anytime with questions or concerns. Job ID: [id number]
[2019-03-06] MEDS: Melatonin 3 MG TAB PO PRN (22:20)
[2019-03-07] MEDS: traMADol HCl 50 MG TAB PO SCH ×2 (03:21→08:49)
[2019-03-07] MEDS: Acetaminophen 325 MG TAB PO SCH ×2 (05:20→11:04)
[2019-03-07] MEDS: Ibuprofen 800 MG TAB PO SCH (05:20)
--- NOTE | 2019-03-07 06:37 | PDOC.FM ---
- Subjective Subjective: Patient has been eating/drinking well, voiding and stooling well yesterday. She wants to go home today. Her pain is well controlled, still has some epigastric pain this AM. - Objective Vital Signs & Weight: Vital Signs (12 hours) Temp Pulse Resp BP Pulse Ox 03/07/19 04:00 98 F 70 16 114/74 94 L 03/07/19 00:10 97.8 F 65 16 122/75 100 03/06/19 20:00 97.8 F 70 16 116/75 98 Weight Admit Weight 63.412 kg Weight 64.592 kg I&O: 03/05/19 03/06/19 03/07/19 06:59 06:59 06:59 Intake Total 5400 3600 2340 Balance 5400 3600 2340 Result Diagrams: 03/02/19 04:41 03/06/19 04:29 Phys Exam - Physical Examination Constitutional: NAD Respiratory: no wheezing, clear to auscultation bilateral Cardiovascular: RRR, no significant murmur Gastrointestinal: soft, no distention, positive bowel sounds TTP in mid epigastrium Musculoskeletal: no edema, pulses present Neurological: non-focal, moves all 4 limbs Lymphatic: no nodes Psychiatric: normal affect Skin: no rash, normal turgor, cap refill <2 seconds Dx/Plan (1) Pancreatitis Code(s): K85.90 - ACUTE PANCREATITIS WITHOUT NECROSIS OR INFECTION, UNSP Status: Acute (2) Abdominal pain Code(s): R10.9 - UNSPECIFIED ABDOMINAL PAIN Status: Acute (3) Right upper quadrant pain Code(s): R10.11 - RIGHT UPPER QUADRANT PAIN Status: Acute (4) Alcohol abuse Code(s): F10.10 - ALCOHOL ABUSE, UNCOMPLICATED Status: Acute (5) Bipolar 2 disorder Code(s): F31.81 - BIPOLAR II DISORDER Status: Chronic (6) Marijuana abuse Code(s): F12.10 - CANNABIS ABUSE, UNCOMPLICATED Status: Acute (7) PTSD (post-traumatic stress disorder) Code(s): F43.10 - POST-TRAUMATIC STRESS DISORDER, UNSPECIFIED Status: Chronic - Plan Plan: Abdominal pain, Post ERCP Pancreatitis vs Residual pain from Bile leak -Voiding and stooling well. Abd pain improved this AM. -Dr. Loyd following, appreciate GI recommendations -Continue advancing diet -Continue NGUYEN Ibuprofen and tramadol for the next 5-7 days. Plan to send patient home with a few days of [place]. RUQ pain 2/2 bile leak - HIDA scan showed bile leak, GI consulted. Surg on board. appreciate recommendations. Pt now s/p ERCP 03/03, GI recommends f/u EGD/ERCP in 3 months Gastric ulcer -Protonix 40 BID Bipolar -home meds PTSD -home meds EtOH abuse -ASE protocol Marijuana abuse -encourage cessation. CODE: FULL PCP: Louis Smith - Attending - Attending Attestation Date/Time: 03/07/19 1101 I personally evaluated the patient and discussed the management with Dr. Metcalf I agree with the History, Examination, Assessment and Plan documented above with any addition or exceptions noted below.
[2019-03-07 08:08] VITALS: BP 113/70; TEMP 99
[2019-03-07] MEDS: FLUoxetine HCl 20 MG CAP PO SCH (08:49)
[2019-03-07] MEDS: carBAMazepine 200 MG TAB PO SCH (08:49)
[2019-03-07] MEDS: Diazepam 5 MG TAB PO PRN (08:51)
[2019-03-07] MEDS: Ondansetron PF 4 MG/2 ML Vial IVP PRN (08:52)
--- NOTE | 2019-03-08 12:47 | DIS ---
DATE OF ADMISSION: 03/01/2019 DATE OF DISCHARGE: 03/07/2019 RESIDENT: Sapna Metcalf MD. ADMITTING ATTENDING: Diana Cuellar MD. CONSULTS: 1. Dr. Loyd, gastroenterology, 03/02/2019. 2. Dr. Myers, general surgery 03/01/2019. PROCEDURES: 1. Abdominal ultrasound, 03/01/2019, status post cholecystectomy. No evidence of abnormality in the right upper quadrant. 2. Abdomen and pelvis CT, 03/01/2019: Non-formed stools in the ascending colon and hepatic flexure with a few foci of pneumatosis. 3. Hyperenhancement, likely focal area of stricturing in the sigmoid colon with increased mesenteric fat suggesting active colitis from inflammatory bowel disease. 4. Hyperdensity in the liver is too small to fully characterize. 5. Cholecystectomy with intrahepatic and extrahepatic biliary dilatation as well as dilatation of pancreatic duct. 6. HIDA scan, 03/02/2019. Findings consistent with a bile leak. 7. ERCP x-ray 03/03/2019, two spot fluoroscopic intraoperative images of right upper quadrant during ERCP demonstrate opacification of the common bile duct and some hepatic duct in the branches without filling defects. Biliary stent placed. 8. Operative note, 03/03/2019. ERCP with sphincterotomy, biliary stent placement, biopsy. 9. Abdomen x-ray, 03/03/2019. No evidence of free intraperitoneal air. PRIMARY DIAGNOSES: 1. Post endoscopic retrograde cholangiopancreatography pancreatitis. 2. Bile leak status post endoscopic retrograde cholangiopancreatography with stent placements. 3. Gastric ulcer. SECONDARY DIAGNOSES: 1. Bipolar. 2. PTSD. 3. ETOH abuse. 4. Marijuana abuse. DISCHARGE MEDICATIONS: 1. Tylenol 650 mg p.o. q.6 hours. 2. Ibuprofen 800 mg p.o. q.8 hours. 3. Zofran 4 mg p.o. q.6 hours p.r.n. for nausea and vomiting. 4. Protonix 40 mg p.o. b.i.d. 5. Tramadol 50 mg p.o. q.6 hours p.r.n. for pain. 6. Valium 10 mg p.o. t.i.d. p.r.n. for anxiety. 7. Carbamazepine 200 mg p.o. b.i.d. 8. Fluoxetine 60 mg p.o. daily. 9. Diphenhydramine 50 mg p.o. at bedtime p.r.n. for insomnia. 10. Nicotine lozenges 2 mg buccal 3 times daily as needed for cessation of smoking. DISCONTINUED MEDICATIONS: Acamprosate. The patient reports she has not been taking this medicine. HISTORY OF PRESENT ILLNESS/HOSPITAL COURSE: A 48-year-old female with a past medical history of IBS and a laparoscopic cholecystectomy 1 month prior who complained a 4-day history of right upper and right lower quadrant pain that has been fluctuating in severity and increasing. The patient reports pain is more severe than the pain a month ago and that she initially did well after the surgery. She has had nausea without vomiting. Denies constipation. Reports one episode of diarrhea a day prior. No upper or lower GI bleed. Reports, she has not felt this kind of pain before. It is not associated with mealtime. Laying on her left side is palliating. In the ED, she was given morphine 60 mg, Zofran, normal saline and general surgery was consulted. Her CT was concerning for IBD. HIDA scan was done, which showed a bile leak. A followup ERCP was done to place a stent as well as a sphincterotomy was performed, sphincterotomy of ampulla of Vater. After the ERCP, the patient continued to have pain in her mid epigastric region. There is concern for pancreatitis. This patient has a history of pancreatitis. She was slowly advanced on her diet and still occasionally was found to have pain in the right upper quadrant as well as mid epigastric region. Dr. Pedro was consulted, who stated he thinks her pain is most likely secondary to residual bile and that will slowly improve over time. GI recommends a followup EGD with ERCP in 3 months to remove the stent. The patient was also found to have gastric ulcer seen on the EGD. She was started on Protonix 40 b.i.d. DISPOSITION: Stable. DISCHARGE INSTRUCTIONS: 1. Location: Home. 2. Diet: Heart healthy diet. 3. Activity: As tolerated. 4. Follow up with Dr. Jean within 1-2 weeks. 5. Follow up with Dr. Loyd. Please call their office to schedule an appointment. 6. Follow up for stent removal in 3 months. 7. Follow up with PCP, Dr. Taisha Myers within 1 week. Job ID: [id number]
== END 2019-03-07 11:05 | disposition home or self-care (01) | DRG 395 ==
LOC: ERS 08:04 → OBSVTOIN 12:38 → 2SW 12:38 → SURG A 03-02 21:01
PROVIDERS: ADMIT Family Medicine; ATTEND Family Medicine
PROC: 0F798DZ Dilation of Common Bile Duct with Intraluminal Device, Via Natural or Artificial Opening Endoscopic (ICD-10-PCS; principal; 2019-03-03)
PROC: 0DB68ZX Excision of Stomach, Via Natural or Artificial Opening Endoscopic, Diagnostic (ICD-10-PCS; 2019-03-03)
DX: K91.89 Other postprocedural complications and disorders of digestive system (principal); F43.10 Post-traumatic stress disorder, unspecified; F31.9 Bipolar disorder, unspecified; K83.9 Disease of biliary tract, unspecified; F12.10 Cannabis abuse, uncomplicated; K25.9 Gastric ulcer, unspecified as acute or chronic, without hemorrhage or perforation; K29.80 Duodenitis without bleeding; Z90.49 Acquired absence of other specified parts of digestive tract; Z87.891 Personal history of nicotine dependence
CPT/HCPCS: 36415; 36416; 74019; 74177; 74330; 76705; 78226; 80053; 81003; 81025; 82274; 83605; 83630; 83690; 85025; 87324; 87328; 87329; 87449; 87899; 88305; 88312; 90471; 90732; 96361; 96374; 96375; 96376; A9537; G0009; J0131; J1200; J1610; J1885; J2001; J2250; J2270; J2405; J2704; J3010; Q0153; Q9961; Q9966

== ENCOUNTER 2019-03-17 12:14 | Emergency (ER) | payer MEDICARE, MEDICAID ==
[2019-03-17 13:07] LABS: #Basophils 0.1 thou/uL (0.0-0.2); #Eosinphils 0.1 thou/uL (0.0-0.7); #Lymphocytes 1.6 thou/uL (1.20-3.40); #Monocytes 0.5 thou/uL (0.11-0.59); #Neutrophils 5.2 thou/uL (1.40-6.50); %Basophils 0.7 % (0.0-1.0); %Eosinophils 1.5 % (0.0-10.0); %Lymphocytes 21.2 % (21.0-51.0); %Monocytes 7.1 % (0.0-10.0); %Neutrophils 69.4 % (42.0-75.0); Hemoglobin 11.6 g/dL (12.0-16.0); Mean Corpuscular HGB CONC 33.7 g/dL (32.0-36.0); Mean Platelet Volume 7.5 fL (7.4-10.4); Platelet Count 429 thou/uL (130-400); RBC Distribution Width 13.6 % (11.5-14.5); White Blood Cell (WBC) Count 7.5 thou/uL (4.8-10.8)
[2019-03-17 13:19] LABS: ALT (SGPT) 23 U/L (8-55); AST (SGOT) 29 U/L (5-34); Albumin 3.9 g/dL (3.5-5.0); Alkaline Phosphatase 88 U/L (40-150); Anion Gap 15 mmol/L (10-20); BUN (Urea Nitrogen) 10 mg/dL (7.0-18.7); Bilirubin, Total 0.2 mg/dL (0.2-1.2); Calc. Creatinine Clearance 0 mL/min (70-130); Calcium 9.3 mg/dL (7.8-10.44); Carbon Dioxide 24 mmol/L (22-29); Chloride 102 mmol/L (98-107); Estimated GFR-MDRD Greater than 90; Globulin 2.9 g/dL (2.4-3.5); Glucose 93 mg/dL (70-105); Lipase 103 U/L (8-78); Protein, Total 6.8 g/dL (6.0-8.3); Sodium 137 mmol/L (136-145)
[2019-03-17] MEDS ORDERED: Morphine 4 MG/ML VIAL ONE ×2 (13:29→16:45)
[2019-03-17] MEDS ORDERED: Ondansetron PF 4 MG/2 ML Vial ONE (13:30)
[2019-03-17 13:40] LABS: Bilirubin Negative (Negative); Blood, Urine Negative (Negative); Clarity CLEAR (Clear); Glucose, Urine (Dipstick) Negative (Negative); Leukocyte Negative (Negative); Nitrite Negative (Negative); Protein, Urine (Dipstick) Negative (Neg-Trace); Urobilinogen 0.2 mg/dL (0.2-1.0)
[2019-03-17 14:49] LABS: Pregnancy Test - Urine (BHCG) Negative (Negative); Pregu Control Background? CLEAR/WHITE (CLR/WHITE); Pregu Control Bar Appear? YES (CONTROL BAR); Specific Gravity 1.008 (1.002-1.036)
--- NOTE | 2019-03-17 16:55 | CT ---
EXAM: Abdomen and pelvic CT scan with contrast: HISTORY: Epigastric abdominal pain COMPARISON: 03/01/2019 FINDINGS: Minimal dependent subpleural parenchymal changes possibly mild atelectasis. Liver: Biliary indwelling stent with pneumobilia. Small stable hypodensity in the right lobe of the l iver. Gallbladder:Status post cholecystectomy. Pancreas:Abnormally dilated pancreatic duct but stable. No evidence for acute pancreatitis. Spleen:Unremarkable. Adrenal glands:Unremarkable. Kidneys:No renal calculus or acute obstruction.No solid or cystic mass. The fairly extensive abnormal changes throughout the colon seen on the prior study have markedly impr bal. There is some persistent wall thickening of the right colon and cecum. There are some tiny foci of gas along the wall, I favor these being intraluminal but it would be difficult to absolutely exclude a tiny amount of pneumatosis in the right colon. No CT evidence for acute appendicitis. The urinary bladder is unremarkable. No abscess, adenopathy, or abnormal fluid collection within the abdomen or pelvis. IMPRESSION: Considerable improvement in the appearance of the colon compared to the prior study with some minimal persistent wall thickening in the right colon and cecum. Other stable findings as above. No evidence for other significant new process.
== END 2019-03-17 17:30 | disposition home or self-care (01) ==
LOC: ERS 12:14
DX: R10.12 Left upper quadrant pain (principal); F41.9 Anxiety disorder, unspecified; F31.9 Bipolar disorder, unspecified; Z87.891 Personal history of nicotine dependence; Z79.899 Other long term (current) drug therapy
CPT/HCPCS: 74177; 80053; 81003; 81025; 83690; 85025; 96374; 96375; 96376; J2270; J2405; Q9966

== ENCOUNTER 2019-04-16 14:04 | Emergency (ER) | payer MEDICARE, MEDICAID ==
[2019-04-16] MEDS ORDERED: Ondansetron PF 4 MG/2 ML Vial ONE (14:57)
[2019-04-16] MEDS ORDERED: Morphine 4 MG/ML VIAL ONE (14:58)
[2019-04-16 15:13] LABS: #Lymphocytes 1.8 thou/uL (1.20-3.40); #Monocytes 0.5 thou/uL (0.11-0.59); #Neutrophils 3.6 thou/uL (1.40-6.50); %Basophils 0.6 % (0.0-1.0); %Eosinophils 0.2 % (0.0-10.0); %Lymphocytes 30.1 % (21.0-51.0); %Monocytes 8.8 % (0.0-10.0); %Neutrophils 60.3 % (42.0-75.0); Hemoglobin 13.3 g/dL (12.0-16.0); Mean Corpuscular HGB CONC 33.1 g/dL (32.0-36.0); Mean Corpuscular Hemoglobin 33.6 pg (27.0-31.0); Mean Platelet Volume 7.6 fL (7.4-10.4); Platelet Count 224 thou/uL (130-400); RBC Distribution Width 13.4 % (11.5-14.5); Red Blood Cell (RBC) Count 3.97 mill/uL (4.20-5.40)
[2019-04-16 15:23] LABS: Pregnancy Test - Urine (BHCG) Negative (Negative); Pregu Control Background? CLEAR/WHITE (CLR/WHITE); Pregu Control Bar Appear? YES (CONTROL BAR); Specific Gravity 1.014 (1.002-1.036)
[2019-04-16 15:24] LABS: Bacteria/HPF None Seen HPF (None Seen); Bilirubin Negative (Negative); Blood, Urine Negative (Negative); Clarity Clear (Clear); Glucose, Urine (Dipstick) Normal (Negative); Leukocyte 25 Leu/uL (Negative); Nitrite Negative (Negative); Protein, Urine (Dipstick) Negative (Neg-Trace); RBC/HPF 0-3 HPF (0-3); Urobilinogen Normal mg/dL (Less than 2)
[2019-04-16 15:35] LABS: ALT (SGPT) 26 U/L (8-55); AST (SGOT) 41 U/L (5-34); Albumin 4.1 g/dL (3.5-5.0); Alkaline Phosphatase 96 U/L (40-150); Anion Gap 14 mmol/L (10-20); BUN (Urea Nitrogen) 9 mg/dL (7.0-18.7); Bilirubin, Total 0.6 mg/dL (0.2-1.2); Calc. Creatinine Clearance 0 mL/min (70-130); Calcium 9.3 mg/dL (7.8-10.44); Carbon Dioxide 26 mmol/L (22-29); Chloride 102 mmol/L (98-107); Estimated GFR-MDRD Greater than 90; Globulin 2.6 g/dL (2.4-3.5); Glucose 96 mg/dL (70-105); Lipase 26 U/L (8-78); Potassium 3.7 mmol/L (3.5-5.1); Protein, Total 6.7 g/dL (6.0-8.3); Sodium 138 mmol/L (136-145)
--- NOTE | 2019-04-16 16:06 | CT ---
CT ABDOMEN AND PELVIS WITH IV CONTRAST: HISTORY: Abdominal pain and nausea but no vomiting COMPARISON: 03/17/2019 FINDINGS: There are mild dependent changes in the lung bases. The patient is status postcholecystectomy with bi liary stent in place and pneumobilia. Small hypodensity in the right lower the liver is stable. Pancreatic ductal dilatation is stable. No peripancreatic inflammatory changes or fluid collections a re seen. The spleen, adrenal glands and kidneys are normal. No free air, free fluid or lymphadenopathy seen in the abdomen or pelvis. There are vascular calcifications without evidence of aneurysmal dilatation of the abdominal aorta. There are mild degenerative changes in the spine. Metallic hardware is seen i n the right proximal femur. Uterus is present. There are postoperative changes of bilateral tubal ligation. There is fluid in non distended loops of small bowel. Absence of oral contrast reduces the sensitivity of the exam for the evaluation of bowel. IMPRESSION: No definite acute abnormalities are seen.
[2019-04-16] MEDS ORDERED: ISOVUE-370 76%-LOCM 1 ML ONE (16:20)
[2019-04-16] MEDS ORDERED: Sucralfate 1 GM/10 ML UDCUP ONE (16:27)
== END 2019-04-16 17:04 | disposition home or self-care (01) ==
LOC: ERS 14:04
DX: R10.9 Unspecified abdominal pain (principal); F41.9 Anxiety disorder, unspecified; F31.9 Bipolar disorder, unspecified; Z87.891 Personal history of nicotine dependence; Z79.899 Other long term (current) drug therapy
CPT/HCPCS: 74177; 80053; 81003; 81015; 81025; 83690; 85025; 96361; 96374; 96375; J2270; J2405; Q9966

== ENCOUNTER 2019-05-15 08:53 | Day surgery (SDC) | payer MEDICARE, MEDICAID ==
[2019-05-14 14:13] VITALS: BMI 23.3
[2019-05-15] MEDS ORDERED: Iothalamate Meglumine 60% 50 ML VIAL FS ONE (11:09)
[2019-05-15] MEDS ORDERED: Lidocaine 2% Jelly 5 ML TUBE ONE (11:20)
[2019-05-15] MEDS ORDERED: Midazolam HCl 2 mg/2 ml Vial ONE (11:20)
[2019-05-15] MEDS ORDERED: Fentanyl 100 MCG/2 ML VIAL ONE (11:20)
--- NOTE | 2019-05-15 12:12 | RAD ---
EXAM: XR ERCP PROVIDED CLINICAL HISTORY: Biliary stent removal. COMPARISON: 03/03/2019 FINDINGS: Surgical instruments overlie the right upper quadrant. There is opacification of the common duct and intrahepatic bile ducts. There are linear filling defects seen within the mid common duct which could be related to either hemorrhage or debris. Distal portion of the common duct is incompletely im aged overlying surgical interventions. A definite rounded filling defect corresponding to calculus is not delineated on this study. There is free spill of contrast into the small bowel. The intrahepat ic ducts are partially opacified and not dilated. The common duct is mildly dilated. This could be attributable to reservoir effect from prior cholecys tectomy changes. Surgical clips are seen in the right upper quadrant. Correlation with intraoperative findings is recommended.
--- NOTE | 2019-05-15 13:32 | OP ---
DATE OF PROCEDURE: 05/15/2019 PROCEDURES PERFORMED: 1. Endoscopic retrograde cholangiopancreatography with biliary stent removal. 2. Colonoscopy, diagnostic. INDICATIONS: 1. History of postoperative bile leak, status post endoscopic retrograde cholangiopancreatography with biliary stent placement and sphincterotomy in February 2019. 2. Abnormal CT scan, suggestive of right-sided colon thickening. 3. Chronic nausea. MEDICATIONS: See Anesthesia record. FINDINGS: After discussion of the risks, benefits, and alternatives of the procedure, informed consent was obtained and witnessed. Pre-endoscopic cardiopulmonary examination was satisfactory. Time-out was performed before sedation was achieved. Sedation was achieved with Anesthesia assistance in the endoscopy unit. The patient was placed in a semi-prone position under general anesthesia, endotracheally intubated on the fluoroscopy table. A Pentax adult side-viewing duodenoscope was inserted into the mouth, passed forward beyond the esophagus and stomach all the way to the second portion of the duodenum. The ampulla was brought into view with the endoscope in the short position. There was a straight plastic biliary stent protruding from the ampulla as expected. There was evidence of prior biliary sphincterotomy using a triple lumen dome-tipped sphincterotome. I cannulated the common bile duct through the plastic biliary stent. A biliary cholangiogram was performed. Cholangiogram demonstrated good filling of intrahepatic bile ducts, which were not dilated. There was some mild dilation of the common bile duct, but no filling defects seen. Importantly, there was no evidence of any residual bile leak. The sphincterotome was removed. A wire snare was passed through the accessory port and the distal end of the biliary stent was grasped with a snare. The biliary stent was then removed from the common bile duct and dragged out of the patient's mouth along with the endoscope. Excess air and fluid were suctioned from the stomach. At this point, the ERCP procedure was complete. The patient was repositioned to the left lateral decubitus position. Digital rectal exam was performed, which demonstrated some external hemorrhoidal skin tags. A Pentax adult colonoscope was inserted into the anus and passed forward to the cecum in the usual fashion. The cecal base was identified by the appendiceal orifice as well as the ileocecal valve. The terminal ileum was not intubated. The colonoscope was slowly withdrawn in a gradual and circumferential manner with careful examination of the entire colonic mucosa. The quality of the prep was good. The colonic mucosa appeared normal throughout. There was no evidence of any colitis. No polyps or other abnormalities. Retroflexion in the rectum demonstrated internal hemorrhoids. The colonoscope was completely withdrawn and the patient allowed to recover. The patient tolerated the procedure well. There were no immediate postprocedure complications. IMPRESSION: 1. No evidence of bile leak. 2. Successful removal of biliary stent. 3. Internal and external hemorrhoids. 4. Otherwise, normal colonoscopy to the cecum. RECOMMENDATIONS: 1. Follow up in the GI clinic as needed. 2. Repeat colonoscopy for screening in 10 years. Job ID: [id number]
[2019-05-15] MEDS ORDERED: Dexamethasone 20 MG/5 ML VIAL ONE (17:25)
[2019-05-15] MEDS ORDERED: Lidocaine 1% PF 5 ML VIAL ONE (17:25)
[2019-05-15] MEDS ORDERED: PROPOFOL 200 MG/20 ML VIAL ONE (17:25)
[2019-05-15] MEDS ORDERED: Succinylcholine Chloride 20 MG/ML 10 ml SYRINGE FS ONE (17:25)
[2019-05-15] MEDS ORDERED: Ondansetron PF 4 MG/2 ML Vial ONE (17:25)
== END 2019-05-15 14:24 | disposition home or self-care (01) ==
LOC: SDC 08:53
PROVIDERS: ATTEND Internal Medicine
PROC: 0DJD8ZZ Inspection of Lower Intestinal Tract, Via Natural or Artificial Opening Endoscopic (ICD-10-PCS; principal; 2019-05-15)
PROC: 0FPB8DZ Removal of Intraluminal Device from Hepatobiliary Duct, Via Natural or Artificial Opening Endoscopic (ICD-10-PCS; 2019-05-15)
DX: Z46.59 Encounter for fitting and adjustment of other gastrointestinal appliance and device (principal); K64.4 Residual hemorrhoidal skin tags; K64.8 Other hemorrhoids; R93.3 Abnormal findings on diagnostic imaging of other parts of digestive tract; R11.0 Nausea; Z79.899 Other long term (current) drug therapy; Z88.7 Allergy status to serum and vaccine
CPT/HCPCS: 74330; J1100; J2001; J2250; J2405; J2704; J3010

== ENCOUNTER 2019-07-19 14:28 | Emergency (ER) | payer MEDICARE, MEDICAID ==
--- NOTE | 2019-07-19 15:26 | RAD ---
XR Chest 1 View Portable HISTORY: Chest pain COMPARISON: None FINDINGS: The heart size is normal. The lungs are well expanded without focal areas of consolidation, pneumothorax or pleural effusions. IMPRESSION: No radiographic evidence of acute cardiopulmonary process.
[2019-07-19 15:29] LABS: #Basophils 0.1 thou/uL (0.0-0.2); #Lymphocytes 2.2 thou/uL (1.20-3.40); #Monocytes 0.7 thou/uL (0.11-0.59); %Basophils 0.9 % (0.0-1.0); %Lymphocytes 27.3 % (21.0-51.0); %Monocytes 8.7 % (0.0-10.0); %Neutrophils 63.1 % (42.0-75.0); Hemoglobin 12.1 g/dL (12.0-16.0); Mean Corpuscular HGB CONC 33.4 g/dL (32.0-36.0); Mean Corpuscular Hemoglobin 34.2 pg (27.0-31.0); Mean Platelet Volume 7.5 fL (7.4-10.4); Platelet Count 245 thou/uL (130-400); RBC Distribution Width 14.8 % (11.5-14.5); Red Blood Cell (RBC) Count 3.52 mill/uL (4.20-5.40); White Blood Cell (WBC) Count 7.9 thou/uL (4.8-10.8)
[2019-07-19 15:35] LABS: BHCG - Serum Negative (NEGATIVE); Pregs Control Background? CLEAR/WHITE (CLR/WHITE); Pregs Control Bar Appear? YES (CONTROL BAR)
[2019-07-19 15:41] LABS: Bilirubin Negative (Negative); Blood, Urine Negative (Negative); Clarity Clear (Clear); Glucose, Urine (Dipstick) Normal (Negative); Leukocyte Negative Leu/uL (Negative); Nitrite Negative (Negative); Protein, Urine (Dipstick) Negative (Neg-Trace); Urobilinogen Normal mg/dL (Less than 2)
[2019-07-19 15:49] LABS: ALT (SGPT) 26 U/L (8-55); AST (SGOT) 31 U/L (5-34); Albumin 4.5 g/dL (3.5-5.0); Alkaline Phosphatase 109 U/L (40-110); Anion Gap 13 mmol/L (10-20); BUN (Urea Nitrogen) 12 mg/dL (7.0-18.7); Bilirubin, Total 0.3 mg/dL (0.2-1.2); Calc. Creatinine Clearance 0 mL/min (70-130); Calcium 9.3 mg/dL (7.8-10.44); Carbon Dioxide 27 mmol/L (22-29); Chloride 104 mmol/L (98-107); Estimated GFR-MDRD 88; Globulin 2.9 g/dL (2.4-3.5); Glucose 108 mg/dL (70-105); Potassium 4.1 mmol/L (3.5-5.1); Protein, Total 7.4 g/dL (6.0-8.3); Sodium 140 mmol/L (136-145)
[2019-07-19] MEDS ORDERED: Ketorolac Tromethamine 30 MG/ML VIAL ONE (15:59)
[2019-07-19] MEDS ORDERED: Morphine 4 MG/ML VIAL ONE (15:59)
--- NOTE | 2019-07-19 16:51 | CT ---
CT ABDOMEN AND PELVIS WITH IV CONTRAST: HISTORY: Right flank pain. The patient has a history of a bile leak status post cholecystectomy in the past. COMPARISON: 04/16/2019 03/17/2019 FINDINGS: There are mild dependent changes in the lung bases. Changes of cholecystectomy are again seen. The pr eviously noted biliary stent and pneumobilia are no longer seen. The lesion in the posterior segment of the right lobe of the liver is stable. The spleen, pancreas, adrenal glands and kidneys are normal . No free air, free fluid or lymphadenopathy is seen in the abdomen or pelvis. The small bowel loops ar e not abnormally dilated. A normal appearing appendix is present. There are vascular calcifications without evidence of aneurysmal dilatation of the abdominal aorta. M ild pancreatic ductal prominence is stable. There are mild degenerative changes in the spine. A uteru s is present. There are postop changes of bilateral tubal ligation. There is fecal material in the co olive and rectum. There are postop changes and metallic hardware in the right proximal femur. IMPRESSION: No acute process. POS: [facility]
== END 2019-07-19 18:23 | disposition home or self-care (01) ==
LOC: ERS 14:28
DX: R10.9 Unspecified abdominal pain (principal); R11.0 Nausea; E11.9 Type 2 diabetes mellitus without complications; F31.9 Bipolar disorder, unspecified; F41.9 Anxiety disorder, unspecified; Z87.891 Personal history of nicotine dependence; Z79.899 Other long term (current) drug therapy
CPT/HCPCS: 71045; 74177; 80053; 81003; 83690; 84484; 84703; 85025; 85379; 87086; 93005; 96374; 96375; J1885; J2270

== ENCOUNTER 2020-02-27 19:59 | Inpatient (IN) | payer MEDICARE, MEDICAID ==
[2020-02-27] MEDS ORDERED: Fentanyl 100 MCG/2 ML VIAL ONE (20:30)
--- NOTE | 2020-02-27 20:37 | RAD ---
THREE VIEWS OF THE RIGHT ANKLE: 02/27/20 HISTORY: Dancing in new heels and fell with right ankle pain. FINDINGS: Three views of the right ankle shows a trimalleolar fracture of the ankle with subluxation of the tib iotalar joints. Diffuse surrounding soft tissues swelling is seen. IMPRESSION: Trimalleolar fracture of the right ankle. POS: [facility]
[2020-02-27 21:46] LABS: Hemoglobin 12.3 g/dL (12.0-16.0); Mean Corpuscular Hemoglobin 33.7 pg (27.0-31.0); Platelet Count 181 thou/uL (130-400); RBC Distribution Width 16.3 % (11.5-14.5); Red Blood Cell (RBC) Count 3.66 mill/uL (4.20-5.40); White Blood Cell (WBC) Count 5.5 thou/uL (4.8-10.8)
[2020-02-27 21:58] LABS: Albumin 4.6 g/dL (3.5-5.0)
[2020-02-27 21:59] LABS: Chloride 104 mmol/L (98-107); Potassium 4.2 mmol/L (3.5-5.1); Sodium 137 mmol/L (136-145)
[2020-02-27 22:00] LABS: Calcium 8.9 mg/dL (7.8-10.44)
[2020-02-27 22:01] LABS: Glucose 113 mg/dL (70-105); Protein, Total 7.6 g/dL (6.0-8.3)
[2020-02-27 22:02] LABS: Anion Gap 17 mmol/L (10-20); Carbon Dioxide 20 mmol/L (22-29)
[2020-02-27 22:03] LABS: Alkaline Phosphatase 107 U/L (40-110); Bilirubin, Total 0.4 mg/dL (0.2-1.2)
[2020-02-27 22:04] LABS: Calc. Creatinine Clearance 0 mL/min (70-130); Estimated GFR-MDRD 84
[2020-02-27 22:05] LABS: BUN (Urea Nitrogen) 9 mg/dL (7.0-18.7); Band 2 % (5-11); Lymphocytes 34 % (21-51); MDiff Complete? YES; Monocytes 4 % (0-10); Neutrophil 60 % (42-75)
[2020-02-27 22:06] LABS: AST (SGOT) 67 U/L (5-34)
[2020-02-27 22:07] LABS: ALT (SGPT) 33 U/L (8-55)
[2020-02-27] MEDS ORDERED: Ketamine 50 MG/ML (10ML VIAL) ONE (22:12)
[2020-02-27] MEDS ORDERED: Ondansetron PF 4 MG/2 ML Vial ONE (22:52)
[2020-02-27] MEDS ORDERED: Dextrose 5% in Water 1,000 ML IV PRN (23:26)
[2020-02-27] MEDS ORDERED: Ondansetron PF 4 MG/2 ML Vial IVP PRN (23:26)
[2020-02-27] MEDS ORDERED: Ondansetron ODT 4 MG TAB PO PRN (23:26)
[2020-02-27] MEDS ORDERED: Dextrose 50% Abboject 50 ML SYRINGE SLOW IVP PRN (23:26)
[2020-02-27] MEDS ORDERED: hydrALAZINE 20 MG/ML VIAL SLOW IVP PRN (23:26)
[2020-02-27] MEDS ORDERED: Ibuprofen 600 MG TAB PO PRN (23:29)
[2020-02-27] MEDS ORDERED: traMADol HCl 50 MG TAB PO PRN (23:29)
[2020-02-28] MEDS: Sodium Chloride 0.9% 1,000 ML IV SCH ×2 (00:52→06:03)
[2020-02-28] MEDS: Acetaminophen 500 MG TAB PO SCH ×5 (00:52→23:52)
--- NOTE | 2020-02-28 01:02 | HP ---
REQUESTING PHYSICIAN: Ijeoma Mitchell, EZEQUIEL CONSULTING PHYSICIAN: Flip Robin MD. HISTORY OF PRESENT ILLNESS: Ms. Anand is a 49-year-old female who presented to the ED after an incident of a fall at home. The patient reports she was dancing in a new pair of shoe, slipped, and fell. After the fall, the patient experienced right ankle pain, unable to bear weight. No other injury to be reported. No loss of consciousness. Upon arrival in the ED, the patient was alert and awake, GCS 15, vital signs stable. REVIEW OF SYSTEMS: Noncontributory except per HPI. PAST MEDICAL HISTORY: Pancreatitis. PAST SURGICAL HISTORY: Cholecystectomy, lumbar injection. SOCIAL HISTORY: The patient lives at home with family. The patient quit smoking since last month. The patient drinks every day, half to 1 liter of wine every day. Marijuana abuse. PHYSICAL EXAMINATION: GENERAL: Currently, the patient lying in bed. GCS 15. No acute respiratory distress. VITAL SIGNS: Heart rate is 100, blood pressure 120/70, respiratory rate 20, temperature 98.7, and O2 saturation 100 on 2 L. HEENT: Atraumatic. No bruising. Not tender to palpation. NECK: Trachea midline. Not tender to palpation. CHEST: Atraumatic. No bruising. Not tender to palpation. LUNGS: Clear bilaterally. HEART: Regular rate and rhythm. ABDOMEN: Atraumatic. No bruising. Not tender to palpation. Nondistended. Bowel sounds are active. PELVIS: Stable. EXTREMITIES: Right lower extremity is in sling, neurovascularly intact x4. NEUROLOGIC: No focal neurology deficits. LABORATORY DATA: Initial workup showed alcohol level is 156. White count 5.5, hemoglobin 12.3. Sodium 137, potassium 4.2, creatinine 0.74. X-ray of right ankle showed a trimalleolar fracture. ASSESSMENT: 1. Status post mechanical fall. 2. Right trimalleolar fracture. 3. Alcohol intoxication. PLAN: The patient will be admitted to telemetry for pain control, n.p.o. at midnight in preparation for going to the OR for right ankle fixation tomorrow. Gastritis and nonpharmacological DVT prophylaxis and pulmonary toilet. Postop, the patient will need to go to physical therapy, occupational therapy. Dr. Mathew is notified. Job ID: [id number]
[2020-02-28] MEDS: traMADol HCl 50 MG TAB PO PRN ×2 (01:05→16:52)
[2020-02-28 01:57] VITALS: BMI 29.2
[2020-02-28] MEDS ORDERED: Morphine 4 MG/ML VIAL SLOW IVP PRN (02:20)
[2020-02-28] MEDS: Cyclobenzaprine 10 MG TAB PO PRN (06:03)
[2020-02-28] MEDS ORDERED: Dicyclomine 20 MG TAB PO PRN (07:10)
[2020-02-28] MEDS ORDERED: Oxazepam 10 MG CAP PO SCH ×2 (07:30→09:00)
[2020-02-28] MEDS ORDERED: Ibuprofen 600 MG TAB PO SCH ×2 (07:30→12:00)
[2020-02-28] MEDS ORDERED: CEFAZOLIN 2 GM in Premix Bag 1 BAG IVPB SCH (07:45)
--- NOTE | 2020-02-28 08:22 | CON ---
DATE OF CONSULTATION: HISTORY OF PRESENT ILLNESS: We were asked by Trauma to see the patient. She came in yesterday. The patient states for the most part, she is healthy. She was trying on new shoes with heels in the gravel and slipped, twisting her ankle. Currently, she states her right ankle is quite sore, but has no loss of sensation. There is a little bit of swelling, but toes move well. She had had a few drinks, but this morning she is doing well without any issues except pain. PAST MEDICAL HISTORY: Pancreatitis. ALLERGIES: PNEUMOCOCCAL VACCINE. CURRENT MEDICATIONS: 1. Prozac. 2. Tegretol. 3. Dicyclomine. 4. P.r.n. Zofran. 5. Diphenhydramine. 6. Diazepam. PAST SURGICAL HISTORY: Cholecystectomy, lumbar injections. SOCIAL HISTORY: Lives at home with family. Struggles with some depression. She is a nonsmoker for a month. Drinks daily and occasionally uses marijuana. FAMILY HISTORY: For this event, is noncontributory. REVIEW OF SYSTEMS: Her only complaint currently is pain to the right ankle. Otherwise, rest of the review of systems is noncontributory. PHYSICAL EXAMINATION: GENERAL: Well-nourished, well-developed female, alert, resting in a bed in 3302 , in no acute distress other than some ankle pain. Speech clear, fluent, oriented x3. VITAL SIGNS: Respirations 16 and equal. HEENT: Face symmetric. Tongue midline. NECK: Supple. Trachea midline. Range of motion good. EXTREMITIES: Upper extremities equal size, shape, symmetry. Normal bulk, tone and movement. Pelvis, no pain with rocking. Lower extremities, also equal size, shape, symmetry, normal bulk and tone with exception of the right ankle, which is splinted, but you can see some edema around the forefoot and toes. She is able to move her toes well and has good sensations. Her DP pulse is equal bilaterally. She has some tenderness to palpation over the lateral and medial malleolus through the splint. LABORATORY DATA: X-rays show a right ankle fracture, trimalleolar. White blood cell count normal, Chemistries, glucose is little high at 113, AST 67. Toxicology, plasma alcohol was 166. ASSESSMENT: Right ankle fracture. PLAN: Dr. Robin and I spoke with the patient, went over the risks and benefits of surgery. Her questions and concerns were addressed and answered. She will undergo a right ORIF of the ankle. The procedure has been explained to patient and she is amenable to go forth with surgery. Currently, she is n.p.o., but having lot of pain. We will check her med profile and see if there is anything we can add. Job ID: [id number] MTDD
[2020-02-28] MEDS: Famotidine 20 MG TAB PO SCH ×3 (08:28→21:54)
[2020-02-28] MEDS: FLUoxetine HCl 20 MG CAP PO SCH (08:28)
[2020-02-28] MEDS: Folic Acid 1 MG TAB PO SCH (08:28)
[2020-02-28] MEDS: Senokot S 8.6-50 MG TAB PO SCH ×2 (08:29→21:50)
[2020-02-28] MEDS: Multivitamin W/ Minerals 1 TAB PO SCH (08:29)
[2020-02-28] MEDS: Thiamine 100 MG TAB PO SCH (08:29)
[2020-02-28] MEDS: Gabapentin 300 MG CAP PO SCH ×3 (08:29→21:52)
[2020-02-28] MEDS: Polyethylene Glycol 3350 17 GM Packet PO SCH (08:29)
[2020-02-28] MEDS: carBAMazepine 200 MG TAB PO SCH ×2 (08:29→22:03)
[2020-02-28] MEDS: Morphine 4 MG/ML VIAL SLOW IVP PRN ×2 (08:33→20:29)
[2020-02-28] MEDS: diphenhydrAMINE 50 MG/ML VIAL IVP PRN ×2 (09:06→20:35)
--- NOTE | 2020-02-28 11:27 | PRG ---
DATE OF SERVICE: 02/28/2020 SUBJECTIVE: The patient is seen and examined on morning rounds. She is in good spirits, states that her pain is well controlled with IV morphine. The patient is eager to go to surgery for repair of her ankle fracture. She expressed no concerns or questions. OBJECTIVE: VITAL SIGNS: Temperature 97.8, pulse 86, respiratory rate 16, O2 saturation 98% on room air, blood pressure 115/79. GENERAL: Well-appearing female, in no acute distress. In good spirits. HEENT: Extraocular movements are intact. Moist mucous membranes. NECK: Supple. Trachea is midline. RESPIRATORY: Equal and symmetric chest rise and fall. EXTREMITIES: Right lower extremity distal to wound warm, dry, and freely movable toes. Splint in place. LABORATORY DATA: Hemoglobin 12.3, WBC 5.5, platelets 181. Sodium 137, potassium 4.2, chloride 104, bicarb 20, creatinine 0.74. Alcohol level at admission 166. ASSESSMENT: 1. Status post mechanical fall. 2. Right trimalleolar fracture. 3. Alcohol abuse. PLAN: The patient is currently n.p.o. with plans to go to the OR today for open reduction and internal fixation of right trimalleolar fracture. We will continue pre and postoperative pain control and postoperatively will transition to p.o. pain regimen. We will encourage physical and occupational therapy postoperatively. Continue Serax and monitor for signs and symptoms of acute alcohol withdrawal due to the patient's history of alcohol abuse and intoxication upon presentation. Anticipate discharge tomorrow pending Orthopedic recommendations and postoperative course. The patient was seen and examined by Dr. Myers on morning rounds with the above plan discussed with the patient at bedside, who voiced agreement and understanding of the plan, and all questions were answered appropriately. Job ID: [id number]
[2020-02-28] MEDS ORDERED: Bupivacaine HCl 0.5%/Epinephrine 1:200,000/PF 30 ml Vial ONE (12:21)
[2020-02-28] MEDS ORDERED: Dexamethasone 20 MG/5 ML VIAL ONE (12:21)
[2020-02-28] MEDS ORDERED: PROPOFOL 200 MG/20 ML VIAL ONE (12:21)
[2020-02-28] MEDS ORDERED: Ondansetron PF 4 MG/2 ML Vial ONE (12:21)
[2020-02-28] MEDS ORDERED: Ketorolac Tromethamine 30 MG/ML VIAL ONE (12:21)
[2020-02-28] MEDS ORDERED: Dexamethasone 4 mg/ml Vial ONE (12:37)
[2020-02-28] MEDS ORDERED: Fentanyl 100 MCG/2 ML VIAL ONE ×2 (12:37→13:28)
[2020-02-28] MEDS ORDERED: Midazolam HCl 2 mg/2 ml Vial ONE (12:37)
[2020-02-28] MEDS: Oxazepam 10 MG CAP PO SCH ×2 (15:02→21:51)
[2020-02-28] MEDS: Ibuprofen 600 MG TAB PO SCH ×2 (15:33→22:03)
--- NOTE | 2020-02-28 15:36 | RAD ---
Exam:Intraoperative fluoroscopy HISTORY: Bimalleolar fracture COMPARISON: 02/27/2020 FINDINGS: 3 fluoroscopic images demonstrate internal fixation of a distal fibula/lateral malleolus fr acture and a medial malleolus fracture. Exposure: 4.3 seconds. 0.14 mGy IMPRESSION: Intraprocedure fluoroscopy as above
[2020-02-28] MEDS: CEFAZOLIN 2 GM in Premix Bag 1 BAG IVPB SCH (21:50)
[2020-02-29] MEDS: traMADol HCl 50 MG TAB PO PRN (02:11)
[2020-02-29] MEDS: Oxazepam 10 MG CAP PO SCH (05:20)
[2020-02-29] MEDS: Acetaminophen 500 MG TAB PO SCH ×4 (05:20→23:34)
[2020-02-29] MEDS: CEFAZOLIN 2 GM in Premix Bag 1 BAG IVPB SCH (05:21)
[2020-02-29] MEDS: Morphine 4 MG/ML VIAL SLOW IVP PRN (05:23)
[2020-02-29 05:26] LABS: #Monocytes 0.5 thou/uL (0.11-0.59); #Neutrophils 4.4 thou/uL (1.40-6.50); %Basophils 0.2 % (0.0-1.0); %Eosinophils 0.1 % (0.0-10.0); %Lymphocytes 17.1 % (21.0-51.0); %Neutrophils 74.6 % (42.0-75.0); Hemoglobin 10.2 g/dL (12.0-16.0); Mean Corpuscular HGB CONC 32.5 g/dL (32.0-36.0); Mean Corpuscular Hemoglobin 33.5 pg (27.0-31.0); Mean Platelet Volume 7.7 fL (7.4-10.4); Platelet Count 188 thou/uL (130-400); RBC Distribution Width 16.1 % (11.5-14.5); Red Blood Cell (RBC) Count 3.04 mill/uL (4.20-5.40); White Blood Cell (WBC) Count 5.9 thou/uL (4.8-10.8)
[2020-02-29 05:47] LABS: Anion Gap 9 mmol/L (10-20); BUN (Urea Nitrogen) 7 mg/dL (7.0-18.7); Calc. Creatinine Clearance 126 mL/min (70-130); Calcium 8.5 mg/dL (7.8-10.44); Carbon Dioxide 27 mmol/L (22-29); Chloride 106 mmol/L (98-107); Estimated GFR-MDRD Greater than 90; Glucose 117 mg/dL (70-105); Magnesium 2.2 mg/dL (1.6-2.6); Phosphorus 2.9 mg/dL (2.3-4.7); Sodium 138 mmol/L (136-145)
[2020-02-29] MEDS: diphenhydrAMINE 50 MG/ML VIAL IVP PRN (06:41)
[2020-02-29] MEDS: Ibuprofen 600 MG TAB PO SCH ×3 (06:42→23:35)
[2020-02-29] MEDS ORDERED: PHOS-NAK 1 PKT PACK PO SCH (07:45)
--- NOTE | 2020-02-29 09:16 | OP ---
DATE OF PROCEDURE: 02/28/2020 OPERATION: Open reduction internal fixation of right bimalleolar ankle fracture. PREOPERATIVE DIAGNOSIS: Right displaced bimalleolar ankle fracture. POSTOPERATIVE DIAGNOSIS: Right displaced bimalleolar ankle fracture. COMPLICATIONS: None. ESTIMATED BLOOD LOSS: Minimal. SENIOR [employer] SPECIALIST: Ba Schroeder PA-C IMPLANTS: One-third tubular plate with nonlocking screws as well as 4.0 partially-threaded screws from [employer]. INDICATIONS: Ms. Anand is a 49-year-old female, who fell and fractured her right ankle. She has been indicated for open reduction and internal fixation to restore anatomic alignment and promote healing. Risks have been reviewed in detail. She has elected to proceed with the operation. She is aware of risks, which include infection, pain, nerve or vascular injury, nonunion, malunion, and others. DESCRIPTION OF PROCEDURE: Ms. Anand was identified in the preoperative holding area. Her correct extremity was marked. The right lower extremity was prepped and draped in a sterile fashion. She was given intravenous antibiotics. At this point, we proceeded with prepping and draping of the right lower extremity. Next, we inflated the tourniquet. At this point, we made an incision over the lateral malleolus, dissecting down through the subcutaneous tissues to the bony level. The fracture was cleared and identified. We irrigated. At this point, we reduced the fracture with a reduction clamp. Once we had an anatomic reduction, we contoured a 1/3 tubular plate. Multiple screws were placed proximally and distally. We took x-ray images confirming that the plate was adequately placed. At this point, we made a small incision over the medial malleolus. We cleared the soft tissues from the medial malleolar fracture. We irrigated the joint. We then reduced the medial malleolus back into its anatomic position. We took x-ray images confirming this. We then drilled and placed two 4.0 partially-threaded screws. These traversed the fracture appropriately. We took x-ray images again confirming alignment. We did a stress view x-ray, which was negative. We thoroughly irrigated with copious lavage. We then closed with 0 Vicryl suture, and nylon for the skin. A sterile dressing was applied. The patient was taken to the recovery room. Job ID: [id number]
[2020-02-29] MEDS: Thiamine 100 MG TAB PO SCH (09:18)
[2020-02-29] MEDS: Gabapentin 300 MG CAP PO SCH ×3 (09:18→20:34)
[2020-02-29] MEDS: Multivitamin W/ Minerals 1 TAB PO SCH (09:18)
[2020-02-29] MEDS: FLUoxetine HCl 20 MG CAP PO SCH (09:19)
[2020-02-29] MEDS: carBAMazepine 200 MG TAB PO SCH ×2 (09:19→20:34)
[2020-02-29] MEDS: Senokot S 8.6-50 MG TAB PO SCH ×2 (09:19→20:34)
[2020-02-29] MEDS: Enoxaparin Sodium 30 MG/0.3 ML SYRINGE SC SCH ×2 (09:19→20:38)
[2020-02-29] MEDS: Polyethylene Glycol 3350 17 GM Packet PO SCH (09:20)
[2020-02-29] MEDS: Folic Acid 1 MG TAB PO SCH (09:20)
--- NOTE | 2020-02-29 10:59 | PRG ---
DATE OF SERVICE: 02/29/2020 SUBJECTIVE: The patient was seen this morning during rounds. She was sitting up in bed with no signs of acute distress. She reported having some pain in her right lower extremity, also reported that there was numbness in her toes. She reported she slept well overnight, tolerating regular diet. OBJECTIVE: VITAL SIGNS: Temperature 98, pulse 80, respirations 18, oxygen saturation 100% on room air, and blood pressure 148/69. GENERAL: Well-appearing middle-aged female, sitting up in bed with no signs of acute distress. PULMONARY: Equal chest rise and fall. Clear breath sounds bilaterally. No signs of acute respiratory distress. CARDIAC: Regular rate and rhythm. GI: Abdomen is soft, nontender, and nondistended. EXTREMITIES: 2+ pulses in all extremities. Gross motor and sensation intact. No significant swelling noted. Right lower extremity with splint that is clean, dry, and intact. The patient is able to move toes on her right lower extremity slightly. NEUROLOGIC: GCS is 15. LABORATORY FINDINGS: White count 5.9, hemoglobin 10.2, hematocrit 31.3, and platelets 188. Sodium 138, potassium 4.0, chloride 106, bicarb 27, BUN 7, creatinine 0.67, glucose 117, phosphorus 2.9, and magnesium 2.2. DIAGNOSTIC FINDINGS: There are no new diagnostic findings to report. ASSESSMENT: 1. Status post mechanical fall from standing while intoxicated. 2. Right trimalleolar fracture, status post repair. 3. History of pancreatitis and alcohol abuse. 4. Acute traumatic pain secondary to injuries listed above. PLAN: Continue current diet. Increase tramadol to 100 mg scheduled q.6 hours. Continue adjunctive pain medications. Discontinue Serax and start the patient's home Valium. Discontinue IV morphine. Continue physical and occupational therapy yesterday. They recommended rehab. We have placed that screen. The patient may be able to go home today or tomorrow if she does well with crutches. She does have help at home, her is available. Start Lovenox. This patient will be discussed with Dr. Jean after this dictation. Job ID: [id number]
[2020-02-29] MEDS: traMADol HCl 50 MG TAB PO SCH ×3 (12:27→23:35)
[2020-02-29] MEDS: Cyclobenzaprine 10 MG TAB PO PRN (20:33)
[2020-02-29] MEDS: Diazepam 5 MG TAB PO SCH (20:34)
--- NOTE | 2020-03-01 03:42 | PRG ---
DATE OF SERVICE: 03/01/2020 SUBJECTIVE: Ms. Anand remain in surgical floor. The patient was seen on round this evening. The patient reports pain is well controlled. She tolerated with her regular diet. Her urine is adequate. She was working with Physical Therapy/Occupational Therapy. OBJECTIVE: GENERAL: Currently, the patient lying in bed comfortable with no acute respiratory distress. VITAL SIGNS: Stable. LUNGS: Clear bilaterally. HEART: Regular rate and rhythm. ABDOMEN: Soft and nondistended. EXTREMITIES: Neurovascularly intact x4. NEUROLOGIC: No focal neurology deficits. ASSESSMENT: 1. Status post ground level fall. 2. Right trimalleolar fracture status post repair. 3. History of alcohol abuse and pancreatitis. PLAN: Continue supportive care. Continue pain control. Continue working with Physical Therapy and Occupational Therapy. Continue DVT prophylaxis. The patient wished to be discharged home with family support. Job ID: [id number]
[2020-03-01] MEDS: traMADol HCl 50 MG TAB PO SCH ×3 (05:08→16:15)
[2020-03-01] MEDS: Acetaminophen 500 MG TAB PO SCH ×2 (05:08→12:22)
[2020-03-01] MEDS: Ibuprofen 600 MG TAB PO SCH ×2 (06:29→14:43)
[2020-03-01 06:56] LABS: Band 10 % (5-11); Lymphocytes 42 % (21-51); MDiff Complete? YES; Macrocytosis MODERATE=16-30 cells (100X) (0-5/hpf); Mean Corpuscular HGB CONC 32.4 g/dL (32.0-36.0); Mean Corpuscular Hemoglobin 33.9 pg (27.0-31.0); Monocytes 6 % (0-10); Neutrophil 42 % (42-75); Platelet Count 189 thou/uL (130-400); Platelet Morphology Comment Appears Adequate; RBC Distribution Width 16.4 % (11.5-14.5); Red Blood Cell (RBC) Count 2.95 mill/uL (4.20-5.40); White Blood Cell (WBC) Count 4.8 thou/uL (4.8-10.8)
[2020-03-01] MEDS: Thiamine 100 MG TAB PO SCH (08:27)
[2020-03-01] MEDS: FLUoxetine HCl 20 MG CAP PO SCH (08:27)
[2020-03-01] MEDS: Folic Acid 1 MG TAB PO SCH (08:27)
[2020-03-01] MEDS: Gabapentin 300 MG CAP PO SCH ×2 (08:27→14:43)
[2020-03-01] MEDS: Enoxaparin Sodium 30 MG/0.3 ML SYRINGE SC SCH (08:27)
[2020-03-01] MEDS: carBAMazepine 200 MG TAB PO SCH (08:27)
[2020-03-01] MEDS: Multivitamin W/ Minerals 1 TAB PO SCH (08:27)
[2020-03-01] MEDS: Diazepam 5 MG TAB PO SCH (08:27)
[2020-03-01] MEDS: Polyethylene Glycol 3350 17 GM Packet PO SCH (08:30)
[2020-03-01] MEDS: Cyclobenzaprine 10 MG TAB PO PRN ×2 (08:30→08:33)
[2020-03-01] MEDS: Senokot S 8.6-50 MG TAB PO SCH (08:30)
[2020-03-01 16:54] VITALS: BP 104/68; TEMP 97.6
--- NOTE | 2020-03-02 14:03 | DIS ---
DATE OF ADMISSION: 02/27/2020 DATE OF DISCHARGE: 03/01/2020 ADMISSION DIAGNOSES: 1. Mechanical fall while intoxicated. 2. Right trimalleolar fracture. DISCHARGE DIAGNOSES: 1. Mechanical fall while intoxicated. 2. Right trimalleolar fracture. CONSULTING PHYSICIAN: Dr. Beckford of Orthopedic Surgery. PROCEDURES PERFORMED: The patient went to the OR on February 29, 2020, and had an open reduction and internal fixation of the right ankel fracture. HOSPITAL COURSE: The patient is a 49-year-old female, who presented to the emergency department, who had a mechanical fall while intoxicated. She was found to have a right trimalleolar fracture. She was admitted to the Trauma Service and went to the OR for fixation of her right trimalleolar fracture. Postoperatively, she worked with Physical and Occupational Therapy. Initially, they recommended rehab; however, the patient was very motivated to go home and subsequently improved enough to be safe for discharge home with her family. At the time of discharge, the patient's pain was well controlled. She was tolerating a regular diet, getting around with a walker, and voiding without issues. DISCHARGE DISPOSITION: Home. DISCHARGE CONDITION: Satisfactory. PHYSICAL EXAMINATION: VITAL SIGNS: Temperature 97.6, pulse 88, respirations 14, oxygen saturation 99 % on room air, blood pressure 104/68. GENERAL: Well-appearing middle-aged female, sitting up in bed with no signs of acute distress. PULMONARY: Equal chest rise and fall. Clear breath sounds bilaterally. No signs of acute respiratory distress. CARDIAC: Regular rate and rhythm. GASTROINTESTINAL: Abdomen is soft, nontender, and nondistended. EXTREMITIES: 2+ pulses in all extremities. Gross motor and sensation are intact. No significant swelling noted. The patient has a splint to her right ankle, which is clean, dry, and intact with no signs of oozing. NEUROLOGIC: GCS is 15. DISCHARGE INSTRUCTIONS: The patient was discharged home, nonweightbearing to the right lower extremity. Activity as tolerated. Regular diet. She will be set up for home physical therapy. She has crutches and a walker. DISCHARGE MEDICATIONS: Include: 1. Tylenol. 2. Carbamazepine. 3. Flexeril. 4. Valium. 5. Bentyl. 6. Diphenhydramine. 7. Lovenox for a total of 14 days. Afterwards, the patient was advised to take 81 mg of aspirin b.i.d. 8. Fluoxetine. 9. Gabapentin. 10. Ibuprofen. 11. Zofran. 12. MiraLAX. 13. Tramadol. FOLLOWUP APPOINTMENTS: The patient is to follow up with Dr. Beckford. No followup is needed with Dr. Jean. This is merely a summary of the patient's hospitalization. For full details, please see her medical record in its entirety. I evaluated the patient on the day of discharge. Job ID: [id number] MTDD
== END 2020-03-01 17:02 | disposition home or self-care (01) | DRG 493 ==
LOC: ERS 19:59 → SURG A 23:29
PROVIDERS: ADMIT Specialist; ATTEND Specialist
PROC: 0QSG04Z Reposition Right Tibia with Internal Fixation Device, Open Approach (ICD-10-PCS; principal; 2020-02-28)
DX: S82.851A Displaced trimalleolar fracture of right lower leg, initial encounter for closed fracture (principal); F31.81 Bipolar II disorder; F41.9 Anxiety disorder, unspecified; Z79.899 Other long term (current) drug therapy; F10.129 Alcohol abuse with intoxication, unspecified; Y90.6 Blood alcohol level of 120-199 mg/100 ml; W01.0XXA Fall on same level from slipping, tripping and stumbling without subsequent striking against object, initial encounter; Z90.49 Acquired absence of other specified parts of digestive tract; Y93.41 Activity, dancing; Z88.7 Allergy status to serum and vaccine
CPT/HCPCS: 27840; 36415; 76000; 80048; 80053; 80307; 83735; 84100; 85007; 85025; 85027; 93005; 94760; 96374; 96375; 99152; C1713; G0390; J0670; J0690; J1100; J1200; J1650; J1885; J2250; J2270; J2405; J2704; J3010

== ENCOUNTER 2020-07-01 06:31 | Emergency (ER) | payer MEDICARE, MEDICAID ==
[2020-07-01] MEDS ORDERED: Ondansetron PF 4 MG/2 ML Vial ONE ×2 (06:56→07:26)
[2020-07-01] MEDS ORDERED: Morphine 4 MG/ML VIAL ONE ×2 (06:56→07:26)
[2020-07-01 07:56] LABS: #Monocytes 0.5 thou/uL (0.11-0.59); #Neutrophils 5.7 thou/uL (1.40-6.50); %Basophils 0.5 % (0.0-1.0); %Eosinophils 0.4 % (0.0-10.0); %Lymphocytes 13.9 % (21.0-51.0); %Monocytes 7.2 % (0.0-10.0); %Neutrophils 78.1 % (42.0-75.0); Hemoglobin 9.5 g/dL (12.0-16.0); Mean Corpuscular HGB CONC 32.4 g/dL (32.0-36.0); Mean Corpuscular Hemoglobin 30.7 pg (27.0-31.0); Mean Corpuscular Volume 94.9 fL (78.0-98.0); Mean Platelet Volume 7.4 fL (7.4-10.4); Platelet Count 274 thou/uL (130-400); RBC Distribution Width 14.9 % (11.5-14.5); Red Blood Cell (RBC) Count 3.08 mill/uL (4.20-5.40); White Blood Cell (WBC) Count 7.3 thou/uL (4.8-10.8)
[2020-07-01 08:20] LABS: ALT (SGPT) 19 U/L (8-55); AST (SGOT) 61 U/L (5-34); Albumin 4.1 g/dL (3.5-5.0); Alkaline Phosphatase 117 U/L (40-110); Anion Gap 15 mmol/L (10-20); BUN (Urea Nitrogen) 16 mg/dL (7.0-18.7); Bilirubin, Total 0.3 mg/dL (0.2-1.2); Calc. Creatinine Clearance 0 mL/min (70-130); Calcium 8.8 mg/dL (7.8-10.44); Carbon Dioxide 24 mmol/L (22-29); Chloride 103 mmol/L (98-107); Estimated GFR-MDRD 80; Globulin 2.9 g/dL (2.4-3.5); Glucose 115 mg/dL (70-105); Lipase 44 U/L (8-78); Sodium 138 mmol/L (136-145)
--- NOTE | 2020-07-01 09:26 | CT ---
ABDOMEN AND PELVIC CT SCAN WITH IV CONTRAST: Date: 07/01/2020 HISTORY: Epigastric pain, nausea. COMPARISON: 07/19/2019. FINDINGS: Lung bases are clear. 0.6 x 1.0 cm cyst in the posterior right lobe of the liver. Status post cholecystectomy. Minimal post cholecystectomy common duct dilatation. Pancreas, spleen, and adrenal glands are unremarkable. No renal calculus or acute obstruction. No CT evidence for acute appendicitis. Somewhat nodular area in the posterior uterine fundus/body junction measuring 1.2 cm, evidence for po ssible uterine fibroid. No evidence for large or small bowel obstruction. IMPRESSION: 1. No significant acute process in the abdomen or pelvis. 2. Other findings as above. No significant change from prior exam. POS: [facility]
[2020-07-01] MEDS ORDERED: Iopamidol-370 76% 500 ML 1 ML ONE (14:33)
--- NOTE | 2020-07-05 11:03 | EKG ---
Test Reason : Blood Pressure : / mmHG Vent. Rate : 109 BPM Atrial Rate : 109 BPM P-R Int : 128 ms QRS Dur : 076 ms QT Int : 354 ms P-R-T Axes : 047 034 047 degrees QTc Int : 476 ms Sinus tachycardia Nonspecific ST abnormality Abnormal ECG Confirmed by VERÓNICA MADSEN DO ([id number]), supervising editor news reel COLEMAN VILLEGAS ([id number]) on 07/05/2020 11:02:34 AM Referred By: Confirmed By:VERÓNICA MADSEN DO
== END 2020-07-01 09:16 | disposition home or self-care (01) ==
LOC: ERS 06:31
DX: R10.13 Epigastric pain (principal); F31.9 Bipolar disorder, unspecified; Z79.899 Other long term (current) drug therapy
CPT/HCPCS: 74177; 80053; 83690; 85025; 93005; 96374; 96375; J2270; J2405; Q9967

== ENCOUNTER 2023-03-28 18:14 | Emergency (ER) | payer MEDICARE, MEDICAID ==
[~2023-03-28 18:14] MED LIST changes: -ISOVUE-370 76%-LOCM 1 ML ONE; +Iopamidol-370 76% 500 ML MDV (1 ML CHARGE) ONE
[2023-03-28 18:59] LABS: Hemoglobin 11.1 g/dL (12.0-16.0); Mean Corpuscular HGB CONC 31.8 g/dL (32.0-36.0); Mean Corpuscular Hemoglobin 31.1 pg (27.0-31.0); Mean Corpuscular Volume 97.8 fl (78.0-98.0); Mean Platelet Volume 10.4 fL (7.4-10.4); Platelet Count 248 10x3/uL (130-400); RBC Distribution Width 17.3 % (11.5-14.5); Red Blood Cell (RBC) Count 3.57 mill/uL (4.20-5.40); White Blood Cell (WBC) Count 3.4 10x3/uL (4.8-10.8)
[2023-03-28 19:00] LABS: Delete Auto Diff?? YES; Manual Diff?? YES
[2023-03-28] MEDS ORDERED: Ondansetron PF 4 MG/2 ML Vial ONE (19:15)
[2023-03-28] MEDS ORDERED: Morphine 4 MG/ML VIAL ONE (19:15)
[2023-03-28 19:22] LABS: Anisocytosis SLIGHT = 6-15 cells HPF (0-5); Band 8 % (5-11); Calcium 9.4 mg/dL (7.8-10.44); CellaVision Operator ID LAB.MJL; Eosinophils 2 % (0-10); Lymphocytes 56 % (21-51); Metamyelocyte 1 % (0-0); Monocytes 4 % (0-10); Myelocyte 1 % (0-0); Neutrophil 28 % (42-75); Platelet Adequacy Comment Platelets Normal; Polychromasia SLIGHT = 2-3 cells HPF (0-2); Total Cell Count 99; Vacuoles SLIGHT
[2023-03-28 19:27] LABS: ALT (SGPT) 49 U/L (8-55); AST (SGOT) 65 U/L (5-34); Albumin 4.4 g/dL (3.5-5.0); Alkaline Phosphatase 99 U/L (40-110); Anion Gap 19 mmol/L (10-20); BUN (Urea Nitrogen) 16 mg/dL (9.8-20.1); Bilirubin, Total 0.3 mg/dL (0.2-1.2); Calc. Creatinine Clearance 0 mL/min (70-130); Carbon Dioxide 18 mmol/L (22-29); Chloride 103 mmol/L (98-107); Estimated GFR 82; Glucose 103 mg/dL (70-105); Potassium 4.1 mmol/L (3.5-5.1); Protein, Total 7.4 g/dL (6.0-8.3); Sodium 136 mmol/L (136-145)
== END 2023-03-28 22:27 | disposition home or self-care (01) ==
LOC: ERS 18:14
DX: S20.214A Contusion of middle front wall of thorax, initial encounter (principal); W17.89XA Other fall from one level to another, initial encounter
CPT/HCPCS: 36415; 71045; 71260; 80053; 84484; 85025; 93005; 96374; 96375; J2270; J2405; Q9967